=== PATIENT | female | born 1930 | race Caucasian/White ===

== ENCOUNTER → 2016-12-07 | Outpatient (CLI) | payer MEDICARE, BC ==
--- NOTE | 2016-12-07 11:13 | CT ---
EXAMINATION TYPE: CT brain wo con DATE OF EXAM: 12/07/2016 9:48 AM HISTORY: Headache CT DLP: 1254 mGycm. Automated Exposure Control for Dose Reduction was Utilized. TECHNIQUE: CT scan of the head is performed without contrast. COMPARISON: CT scan of brain July 19, 2016.. FINDINGS: There is no acute intracranial hemorrhage or midline shift identified. There is diffuse v entricular and sulcal prominence consistent with diffuse age-related cerebral atrophy. There is low- attenuation in the periventricular white matter consistent with chronic small vessel ischemic change. 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 The globes are intact and the v isualized sinuses are clear. IMPRESSION: No acute intracranial hemorrhage or midline shift. There is mild to moderate diffuse ag e-related cerebral atrophy and chronic small vessel ischemic change redemonstrated as well as old rig ht occipital lobe infarct all again seen. No significant change from prior study is noted.
== END | disposition home or self-care (01) ==
LOC: RADCTMAIN 09:14
PROVIDERS: ATTEND Family Medicine
DX: I67.82 Cerebral ischemia (principal); G31.1 Senile degeneration of brain, not elsewhere classified
CPT/HCPCS: 70450

== ENCOUNTER 2017-01-27 01:25 | Emergency (ER) | payer MEDICARE, BC ==
[2017-01-27 01:38] VITALS: RESP 20
--- NOTE | 2017-01-27 02:47 | XR ---
EXAM: XR Abdomen Complete With XR Chest. CLINICAL HISTORY: Reason: Pain TECHNIQUE: Frontal view of the chest, frontal view of the abdomen/pelvis and upright view of the abdomen. COMPARISON: No relevant prior studies available. FINDINGS: Lungs: Mild prominence of the interstitium which may represent interstitial edema. Pleural space: Unremarkable. No pneumothorax. Heart: Unremarkable. No cardiomegaly. Mediastinum: Unremarkable. Intraperitoneal space: No free air. Gastrointestinal tract: Unremarkable. No dilation. Organs: Surgical clips within right upper quadrant, likely prior cholecystectomy. Bones/joints: Multilevel degenerative changes of the thoracolumbar spine with kyphoplasty changes at L1. Remoted healed left rib fractures. Lymph nodes: Nodular opacity at the right hilum which may represent lymph nodes versus pulmonary nodules. Tubes, lines and devices: Moderate enlargement of the heart with single lead cardiac pacemaker. IMPRESSION: Mild prominence of the interstitium which may represent interstitial edema.
[2017-01-27] MEDS ORDERED: DOCUSATE 283 MG/5 ML ENEMA RECTAL STA (04:19)
--- NOTE | 2017-01-27 05:16 | ED ---
Abdominal Pain HPI - General Chief Complaint: Abdominal Pain Stated Complaint: constipation Time Seen by Provider: 01/27/17 01:37 Source: patient, EMS Mode of arrival: EMS Limitations: no limitations - History of Present Illness Initial Comments: This patient is an 86-year-old woman who presents with complaint that she has not had bowel movement for what's going on 6 days. She did try an over-the- counter laxative without success. The patient is not currently having abdominal pain. No fever or chills. No vomiting. She is tolerating oral intake. MD Complaint: other (Constipation) -: days(s) Quality: cramping Consistency: intermittent Improves With: nothing Worsens With: nothing Associated Symptoms: constipation - Related Data Home Medications Medication Instructions Recorded Confirmed Atenolol 100 mg PO DAILY 03/03/14 01/27/17 Imipramine [Tofranil] 10 mg PO TID 03/03/14 01/27/17 Oxybutynin Chloride [Oxybutynin 10 mg PO DAILY 05/29/15 01/27/17 Chloride ER] Vitamin B Complex 1 cap PO HS 05/29/15 01/27/17 Diltiazem HCl [Cartia Xt] 240 mg PO DAILY 09/19/15 01/27/17 Warfarin [Coumadin] 5 mg PO SUTUTHSA 09/19/15 01/27/17 Warfarin [Coumadin] 7.5 mg PO MOWEFR 09/19/15 01/27/17 Glimepiride [Amaryl] 1 mg PO AC-BID 10/18/15 01/27/17 Omeprazole [PriLOSEC] 20 mg PO DAILY 07/22/16 01/27/17 Sulfamethox-Tmp 800-160Mg [Bactrim 1 tab PO Q12H 07/22/16 01/27/17 Ds] metFORMIN HCL [metFORMIN HCL] 500 mg PO DAILY 07/22/16 01/27/17 Previous Rx's Medication Instructions Recorded Losartan [Cozaar] 25 mg PO DAILY tab 12/14/14 Docusate [Colace] 100 mg PO DAILY #30 capsule 09/02/15 Sennosides [Senna] 8.6 mg PO DAILY PRN #30 tablet 04/21/16 Peg 3350-Na Sulf,Bicarb,Cl/KCl 4,000 ml PO DIRECTED #1 bottle 01/27/17 [Golytely Lavage] Allergies Allergy/AdvReac Type Severity Reaction Status Date / Time Penicillins Allergy Unknown Unknown Verified 07/22/16 10:01 Childhood adhesive AdvReac Unknown Unknown Verified 07/22/16 10:01 zolpidem tartrate AdvReac Confusion Verified 07/22/16 10:01 [From Jennifer] Review of Systems ROS Statement: Those systems with pertinent positive or pertinent negative responses have been documented in the HPI. ROS Other: All systems not noted in ROS Statement are negative. Constitutional: Denies: fever, chills Respiratory: Denies: cough, dyspnea Cardiovascular: Denies: chest pain, palpitations Gastrointestinal: Reports: abdominal pain (intermittent), constipation. Denies : nausea, vomiting, diarrhea, melena, hematochezia Genitourinary: Denies: dysuria, hematuria Musculoskeletal: Denies: back pain Skin: Denies: rash Neurological: Denies: headache Past Medical History Past Medical History: Atrial Fibrillation, Coronary Artery Disease (CAD), Cancer , Chest Pain / Angina, CVA/TIA, Diabetes Mellitus, GERD/Reflux, Hypertension, Myocardial Infarction (OR), Osteoarthritis (OA), Pneumonia Additional Past Medical History / Comment(s): 09/19/15 Pt presented to [facility] ER because she thinks she might have taken 3 days worth of her medication. She is being admitted with clinical impression of accidental drug ingestion. Other HX : chronic back pain, pt stated has had 3 mi's not sure of dates, murmur, glaucoma R eye, rt eye macular degeneration, R eye poor vision, colitis when younger, chronic thrombocytopenia, chronic myelomonocytic leukemia, iron deficient anemia, DIVERTICULITIS. 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 Last Myocardial Infarction Date:: unk History of Any Multi-Drug Resistant Organisms: None Reported Past Surgical History: Appendectomy, Back Surgery, Cholecystectomy, Heart Catheterization With Stent, Pacemaker Additional Past Surgical History / Comment(s): clark. cataract removal, bilateral knee replacement, heart stents- last in 2002, pacemaker [id number], back surgery for spinal stenosis, hemorroidectomy, colonoscopy-2011 normal. Past Anesthesia/Blood Transfusion Reactions: No Reported Reaction Additional Past Anesthesia/Blood Transfusion Reaction / Comment(s): Pt states she has received blood in past without reaction. Date of Last Stent Placement:: 2002 Type of Cardiac Device: Permanent Pacemaker Device Placement Date:: 2011 Past Psychological History: No Psychological Hx Reported Additional Psychological History / Comment(s): PT STATED HER NEPHEW OSMANY LIVES WITH HER. 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 She does not drive-her nephew takes her places. Smoking Status: Never smoker Past Alcohol Use History: None Reported Past Drug Use History: None Reported - Past Family History Father Family Medical History: Cancer Additional Family Medical History / Comment(s): at age 80- cardiac Mother Family Medical History: Cancer, Coronary Artery Disease (CAD), Myocardial Infarction (OR) Additional Family Medical History / Comment(s): age 59 [place] [facility] General Exam Limitations: no limitations General appearance: alert, in no apparent distress Head exam: Present: atraumatic, normocephalic ENT exam: Present: normal oropharynx Neck exam: Present: normal inspection Respiratory exam: Present: normal lung sounds bilaterally. Absent: respiratory distress, wheezes, rales, rhonchi, stridor Cardiovascular Exam: Present: regular rate, normal rhythm, normal heart sounds. Absent: systolic murmur, diastolic murmur, rubs, gallop GI/Abdominal exam: Present: soft. Absent: distended, tenderness, guarding, rebound, rigid, mass, pulsatile mass, hernia Extremities exam: Present: normal inspection, normal capillary refill. Absent: pedal edema, calf tenderness Back exam: Present: normal inspection. Absent: CVA tenderness (R), CVA tenderness (L) Neurological exam: Present: alert, normal gait Skin exam: Present: warm, dry, intact, normal color. Absent: rash Course Vital Signs 01/27/17 01/27/17 01:34 05:35 Temperature 97.4 F L 97.7 F Pulse Rate 69 81 Respiratory 20 20 Rate Blood Pressure 192/86 178/87 O2 Sat by Pulse 98 95 Oximetry Disposition Clinical Impression: Constipation Disposition: HOME SELF-CARE Condition: Good Instructions: Constipation (ED) Prescriptions: Peg 3350-Na Sulf,Bicarb,Cl/KCl [Golytely Lavage] 4,000 ml PO DIRECTED #1 bottle Referrals: Paco Martinez III, MD [Primary Care Provider] - 1-2 days
[2017-01-27 05:36] VITALS: BP 178/87; PULSE 81; TEMP 97.7
== END 2017-01-27 05:36 | disposition home or self-care (01) ==
LOC: EC 01:25
DX: K59.00 Constipation, unspecified (principal); I48.91 Unspecified atrial fibrillation; E11.9 Type 2 diabetes mellitus without complications; K21.9 Gastro-esophageal reflux disease without esophagitis; I10 Essential (primary) hypertension; Z79.84 Long term (current) use of oral hypoglycemic drugs; Z88.0 Allergy status to penicillin; Z91.048 Other nonmedicinal substance allergy status; Z88.8 Allergy status to other drugs, medicaments and biological substances; Z79.01 Long term (current) use of anticoagulants; Z90.49 Acquired absence of other specified parts of digestive tract; Z79.899 Other long term (current) drug therapy
CPT/HCPCS: 74022; 99284

== ENCOUNTER 2017-11-16 09:24 | Emergency (ER) | payer MEDICARE, BC ==
--- NOTE | 2017-11-16 10:57 | ED ---
General Adult HPI - General Chief complaint: Back Pain/Injury Stated complaint: Back pain Time Seen by Provider: 11/16/17 10:09 Source: patient, family, RN notes reviewed Mode of arrival: wheelchair Limitations: no limitations - History of Present Illness Initial comments: Chief complaint history of present illness is a 7-year-old female here with family. Patient's had low back pain with past 2 days Tylenol was helping. She also complains of chronic back pain. History of osteoporosis and previous low back surgery. Denies any injuries. - Related Data Home Medications Medication Instructions Recorded Confirmed Atenolol 100 mg PO BID 03/03/14 11/16/17 Oxybutynin Chloride [Oxybutynin 10 mg PO DAILY 05/29/15 11/16/17 Chloride ER] Diltiazem HCl [Cartia Xt] 240 mg PO DAILY 09/19/15 11/16/17 Warfarin [Coumadin] 5 mg PO MOWEFR 09/19/15 11/16/17 Warfarin [Coumadin] 7.5 mg PO SUTUTHSA 09/19/15 11/16/17 Glimepiride [Amaryl] 1 mg PO AC-BID 10/18/15 11/16/17 metFORMIN HCL [metFORMIN HCL] 500 mg PO DAILY 07/22/16 11/16/17 Losartan [Cozaar] 50 mg PO DAILY 11/16/17 11/16/17 Previous Rx's Medication Instructions Recorded Docusate [Colace] 100 mg PO DAILY #30 capsule 09/02/15 Hydrocodone/Acetaminophen [Ashfield 1 each PO Q6HR PRN #10 tab 11/16/17 5-325] Allergies Allergy/AdvReac Type Severity Reaction Status Date / Time Penicillins Allergy Unknown Unknown Verified 11/16/17 09:59 Childhood zolpidem tartrate AdvReac Confusion Verified 11/16/17 09:59 [From Jennifer] Review of Systems ROS Statement: Those systems with pertinent positive or pertinent negative responses have been documented in the HPI. Review of systems no headache no visual acuity changes no chest pain shows breath GI/ complaints of problems occasional constipation but not today. No rashes she has had shingles in the past. All systems were reviewed. Past medical problems significant for A. fib on Coumadin. She had a TIA but since resolved. She's also history of GERD, hypertension, previous MD 2, osteoarthritis, osteoporosis. Pneumonia. The patient's surgeries include appendectomy, back surgery, cholecystectomy, 2 or 3 stents, pacemaker and bilateral cataract surgery. Family history mother had uterine cancer. Patient has ALLERGIES to penicillin and zolpidem tartrate. Patient denies smoking denies drinking. ROS Other: All systems not noted in ROS Statement are negative. Past Medical History Past Medical History: Atrial Fibrillation, Coronary Artery Disease (CAD), Cancer , Chest Pain / Angina, CVA/TIA, Diabetes Mellitus, GERD/Reflux, Hypertension, Myocardial Infarction (MD), Osteoarthritis (OA), Pneumonia Additional Past Medical History / Comment(s): 09/19/15 Pt presented to [facility] ER because she thinks she might have taken 3 days worth of her medication. She is being admitted with clinical impression of accidental drug ingestion. Other HX : chronic back pain, pt stated has had 3 mi's not sure of dates, murmur, glaucoma R eye, rt eye macular degeneration, R eye poor vision, colitis when younger, chronic thrombocytopenia, chronic myelomonocytic leukemia, iron deficient anemia, DIVERTICULITIS. 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 Last Myocardial Infarction Date:: unk History of Any Multi-Drug Resistant Organisms: None Reported Past Surgical History: Appendectomy, Back Surgery, Cholecystectomy, Heart Catheterization With Stent, Pacemaker Additional Past Surgical History / Comment(s): clark. cataract removal, bilateral knee replacement, heart stents- last in 2002, pacemaker [id number], back surgery for spinal stenosis, hemorroidectomy, colonoscopy-2011 normal. Past Anesthesia/Blood Transfusion Reactions: No Reported Reaction Additional Past Anesthesia/Blood Transfusion Reaction / Comment(s): Pt states she has received blood in past without reaction. Date of Last Stent Placement:: 2002 Type of Cardiac Device: Permanent Pacemaker Device Placement Date:: 2011 Past Psychological History: No Psychological Hx Reported Smoking Status: Never smoker Past Alcohol Use History: None Reported Past Drug Use History: None Reported - Past Family History Father Family Medical History: Cancer Additional Family Medical History / Comment(s): at age 80- cardiac Mother Family Medical History: Cancer, Coronary Artery Disease (CAD), Myocardial Infarction (MD) Additional Family Medical History / Comment(s): age 59 [place] [facility] General Exam - General Exam Comments Initial Comments: General: The patient is awake and alert, in no distress, and does not appear acutely ill. Here because of acute on chronic low back pain. Tylenol helped for the first day but less so yesterday. Denies any direct injury or trauma. Eye: Pupils are equal, round and reactive to light, extra-ocular movements are intact ; there is normal conjunctiva bilaterally. No signs of icterus. History of cataract surgery Ears, nose, mouth and throat: Tongue mildly dry. Neck: The neck is supple, there is no tenderness, no anterior cervical lymphadenopathy , thyroid not enlarged. Cardiovascular: There is a regular rate and rhythm. No murmur, rub or gallop is appreciated. History of A. fib on Coumadin. Respiratory: Lungs are clear to auscultation, respirations are non-labored, breath sounds are equal. No wheezes, stridor, rales, or rhonchi. Gastrointestinal: Soft, non-distended, non-tender abdomen without masses or organomegaly noted. There is no rebound or guarding present. No CVA tenderness. Bowel sounds are unremarkable. Back: Evidence of previous surgery. No evidence of any rash though early shingles was discussed. Twisting turning is increased discomfort through the lower spine and slightly into the right buttock area. She has had a past history of sciatica. Musculoskeletal: Normal ROM, no tenderness, There is no pedal edema. There is no calf tenderness or swelling. Sensation intact. Pulses equal bilaterally 2+. Patient advised not to wear tight fitting rolldown stocking its. Removed in the ER by family. Neurological: CN II-XII intact, There are no obvious motor or sensory deficits. Coordination appears grossly intact. Speech is normal. No focal or lateralizing findings Skin: Skin is warm and dry and no rashes or lesions are noted. Early shingles discussed. Psychiatric: Cooperative, appropriate mood & affect, no complaint of any anxiety or depression. Limitations: no limitations Course Vital Signs 11/16/17 09:39 Temperature 97.5 F L Pulse Rate 55 L Respiratory 16 Rate Blood Pressure 130/66 O2 Sat by Pulse 100 Oximetry Medical Decision Making - Medical Decision Making Vital decision making; the patient is here because of acute on chronic low back pain. X-rays of the lumbosacral spine were done and reviewed by radiologist. His final report is no acute osseous lesion. Severe degenerative change. Marked scoliosis. Postsurgical changes. As read by Dr. Solorio Patient states that her Tylenol is not quite strong enough this time. She can' t take nonsteroidals ago she is on Coumadin. She'll be placed on low-dose Ashfield. Advised to cut 53 25 seconds half until she sees how she tolerates them. Advised follow-up with her family physician. Disposition Clinical Impression: Acute exacerbation of chronic low back pain Disposition: HOME SELF-CARE Condition: Stable Instructions: Chronic Back Pain (ED), Acute Low Back Pain (ED) Additional Instructions: Take one half Ashfield until you see how he would just to them. Follow-up with family physician return emergency room as needed Prescriptions: Hydrocodone/Acetaminophen [Ashfield 5-325] 1 each PO Q6HR PRN #10 tab PRN Reason: Pain Referrals: Paco Martinez III, MD [Primary Care Provider] - 1-2 days Time of Disposition: 11:44
--- NOTE | 2017-11-16 11:04 | XR ---
EXAMINATION TYPE: XR lumbosacral spine min 4V , 5 VIEWS DATE OF EXAM ORDERED: 11/16/2017 HISTORY: Chronic low back pain, increased. COMPARISON: None. FINDINGS: There there has been previous kyphoplasty at L1. There is mild wedging of T11 and T12. The re is a fairly marked levoscoliosis. This hypertrophic spondylosis in the lower dorsal spine. There i s diffuse degenerative disc disease in the lumbar spine. There is a retrograde listhesis of L2 on L3. There is mild, diffuse facet arthropathy. There is calcification of the aorta and splenic artery. There has been a previous cholecystectomy. IMPRESSION: 1. NO ACUTE OSSEOUS LESION. 2. SEVERE DEGENERATIVE CHANGE. 3. MARKED SCOLIOSIS. 4. POSTSURGICAL CHANGE.
[2017-11-16 12:01] VITALS: BP 168/75; PULSE 53; RESP 18; TEMP 98.4
== END 2017-11-16 12:01 | disposition home or self-care (01) ==
LOC: EC 09:24
DX: G89.29 Other chronic pain (principal); M54.5 Low back pain; M47.816 Spondylosis without myelopathy or radiculopathy, lumbar region; M41.86 Other forms of scoliosis, lumbar region; I48.91 Unspecified atrial fibrillation; I10 Essential (primary) hypertension; E11.42 Type 2 diabetes mellitus with diabetic polyneuropathy; I25.2 Old myocardial infarction; Z79.01 Long term (current) use of anticoagulants; Z79.84 Long term (current) use of oral hypoglycemic drugs; Z79.899 Other long term (current) drug therapy; Z88.0 Allergy status to penicillin; Z88.8 Allergy status to other drugs, medicaments and biological substances; Z86.79 Personal history of other diseases of the circulatory system; Z98.890 Other specified postprocedural states
CPT/HCPCS: 72110; 99283

== ENCOUNTER → 2017-11-21 | Outpatient (CLI) | payer MEDICARE, BC ==
[~2017-11-21] MED LIST: PHYTONADIONE ORAL 5 MG/5 ML ORAL.SYRG PO NR
[2017-11-21 16:44] VITALS: BP 130/70; RESP 18
== END | disposition home or self-care (01) ==
LOC: PROCWHC3 15:27
PROVIDERS: ATTEND Family Medicine
DX: R79.1 Abnormal coagulation profile (principal); Z79.84 Long term (current) use of oral hypoglycemic drugs
CPT/HCPCS: 99211

== ENCOUNTER → 2017-12-04 | Outpatient (CLI) | payer MEDICARE, BC ==
--- NOTE | 2017-12-04 15:31 | CT ---
EXAMINATION TYPE: CT lumbar spine wo con DATE OF EXAM: 12/04/2017 COMPARISON: Plain film 11/08/2017 HISTORY: Lower back pain CT DLP: 918 mGycm Automated exposure control for dose reduction was used. An unenhanced CT of the lumbar spine was performed. Bone and soft tissue window settings are submitt ed as well as coronal and sagittal reconstructions. FINDINGS: There is a marked spinal curvature as noted on plain film, multilevel spondylosis is present. Lumbar vertebral bodies show preserved height with the exception of L3. There is a cephalad to caudal fractu re of the L3 vertebral body anterior aspect with minimal displacement stellate. Bone mineralization i s reduced. Incidental note made of vertebroplasty change at T12 with some extravasation of cement int o the disc space at T12-L1. Hypertrophic changes are extensive within the visualized spine. Anterolis thesis grade 1 L4-5. Probable cortical cyst associated with the left kidney. Dense atheromatous maravilla es are present within the aorta. Small right posterior pleural effusion is suspected. . L1-L2: Broad-based posterior disc bulge causes mild anterior mass effect on the thecal sac. No signif icant central stenosis or foraminal encroachment. L2-L3: Spinal stenosis is present, there is hypertrophic change of the ligamentum flavum, facet arthr opathy. Extensive hypertrophic changes present, calcification along the posterior aspect of the disc with posterior broad-based disc bulge, lateral extension endplate disc complex encroaches upon the fo ramina. L3-L4: Fracture of the anterior aspect of L3 is noted. No significant central stenosis. Some hypertro phic changes present of the facets. No significant foraminal encroachment. There is some mild loss of vertebral body height L3. L4-L5: Listhesis is noted which is mild, there is calcification along the disc space. Laminectomy has been performed. No significant spinal stenosis. Foraminal encroachment is present due to lateral ext ension of endplate disc complex bilaterally. L5-S1: No significant foraminal encroachment on the right or spinal stenosis. Lateral extension of en dplate disc complex towards the left may encroach upon the foramen. IMPRESSION: Fracture through the anterior aspect of the vertebral body at L3 as described. Marked hypertrophic ch anges are present, postprocedural changes. Spinal stenosis greatest at L2-3. Additional findings abov e. A Yellow message has been communicated to Paco Martinez III, MD via the [employer] system on 12/04/2017 3:28 PM, Message ID [id number].
== END | disposition home or self-care (01) ==
LOC: RADCTMAIN 13:49
PROVIDERS: ATTEND Family Medicine
DX: M48.061 Spinal stenosis, lumbar region without neurogenic claudication (principal); M51.26 Other intervertebral disc displacement, lumbar region; M46.86 Other specified inflammatory spondylopathies, lumbar region; S32.039A Unspecified fracture of third lumbar vertebra, initial encounter for closed fracture; Z88.0 Allergy status to penicillin; Z98.890 Other specified postprocedural states
CPT/HCPCS: 72131

== ENCOUNTER 2018-03-11 00:43 | Emergency (ER) | payer MEDICARE, BC ==
[2018-03-11 01:05] VITALS: TEMP 98.1
[2018-03-11] MEDS ORDERED: ACETAMINOPHEN TAB 325 MG TAB PO STA (01:39)
[2018-03-11 01:59] VITALS: BP 171/72; PULSE 56; RESP 16
--- NOTE | 2018-03-11 02:05 | XR ---
EXAMINATION TYPE: XR tibia fibula LT DATE OF EXAM: 03/11/2018 COMPARISON: NONE HISTORY: Leg pain TECHNIQUE: 2 views FINDINGS: There is a left knee prosthesis. There is vascular calcification. I see no fracture nor dis location. There are large plantar and Achilles calcaneal spurs. IMPRESSION: No acute abnormality of the left tibia and fibula.
--- NOTE | 2018-03-11 02:06 | ED ---
Lower Extremity Injury HPI - General Chief Complaint: Extremity Injury, Lower Stated Complaint: Fall Time Seen by Provider: 03/11/18 01:27 Source: patient Mode of arrival: wheelchair - History of Present Illness Initial Comments: 87-year-old female patient presents to the emergency department today for evaluation of left lower leg pain after a fall approximately 2 days ago. Patient states she is coming out of the bathroom fell striking her peace on the wall. Patient states she fell landing on her bottom. She denies hitting her head or losing consciousness. The patient states that she did develop a bruise to the left lower leg however over the course of the day today the leg has become swollen and more painful. Patient states that when she walks on it it causes her the most significant pain. She denies any numbness or tingling to the foot. She denies any other injuries. Patient denies any headache, neck pain , chest pain, shortness of breath, dizziness, weakness, abdominal pain, nausea, vomiting, or difficulties with bowel movements or urination. - Related Data Home Medications Medication Instructions Recorded Confirmed Atenolol 100 mg PO BID 03/03/14 11/21/17 Oxybutynin Chloride [Oxybutynin 10 mg PO DAILY 05/29/15 11/21/17 Chloride ER] Diltiazem HCl [Cartia Xt] 240 mg PO DAILY 09/19/15 11/21/17 Warfarin [Coumadin] 5 mg PO MOWEFR 09/19/15 11/21/17 Warfarin [Coumadin] 7.5 mg PO SUTUTHSA 09/19/15 11/21/17 Glimepiride [Amaryl] 1 mg PO AC-BID 10/18/15 11/21/17 metFORMIN HCL [metFORMIN HCL] 500 mg PO DAILY 07/22/16 11/21/17 Losartan [Cozaar] 50 mg PO DAILY 11/16/17 11/21/17 Previous Rx's Medication Instructions Recorded Docusate [Colace] 100 mg PO DAILY #30 capsule 09/02/15 Hydrocodone/Acetaminophen [Nancy 1 each PO Q6HR PRN #10 tab 11/16/17 5-325] Allergies Allergy/AdvReac Type Severity Reaction Status Date / Time Penicillins Allergy Unknown Unknown Verified 03/11/18 01:05 Childhood zolpidem tartrate AdvReac Confusion Verified 03/11/18 01:05 [From Ambien] Review of Systems ROS Statement: Those systems with pertinent positive or pertinent negative responses have been documented in the HPI. ROS Other: All systems not noted in ROS Statement are negative. Past Medical History Past Medical History: Atrial Fibrillation, Coronary Artery Disease (CAD), Cancer , Chest Pain / Angina, CVA/TIA, Diabetes Mellitus, GERD/Reflux, Hypertension, Myocardial Infarction ([place]), Osteoarthritis (OA), Pneumonia Additional Past Medical History / Comment(s): 09/19/15 Pt presented to [facility] ER because she thinks she might have taken 3 days worth of her medication. She is being admitted with clinical impression of accidental drug ingestion. Other HX : chronic back pain, pt stated has had 3 mi's not sure of dates, murmur, glaucoma R eye, rt eye macular degeneration, R eye poor vision, colitis when younger, chronic thrombocytopenia, chronic myelomonocytic leukemia, iron deficient anemia, DIVERTICULITIS. 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 Last Myocardial Infarction Date:: unk History of Any Multi-Drug Resistant Organisms: None Reported Past Surgical History: Appendectomy, Back Surgery, Cholecystectomy, Heart Catheterization With Stent, Pacemaker Additional Past Surgical History / Comment(s): clark. cataract removal, bilateral knee replacement, heart stents- last in 2002, pacemaker [id number], back surgery for spinal stenosis, hemorroidectomy, colonoscopy-2011 normal. Past Anesthesia/Blood Transfusion Reactions: No Reported Reaction Additional Past Anesthesia/Blood Transfusion Reaction / Comment(s): Pt states she has received blood in past without reaction. Date of Last Stent Placement:: 2002 Type of Cardiac Device: Permanent Pacemaker Device Placement Date:: 2011 Past Psychological History: No Psychological Hx Reported Smoking Status: Never smoker - Past Family History Father Family Medical History: Cancer Additional Family Medical History / Comment(s): at age 80- cardiac Mother Family Medical History: Cancer, Coronary Artery Disease (CAD), Myocardial Infarction ([place]) Additional Family Medical History / Comment(s): age 59 in [facility] General Exam General appearance: alert, in no apparent distress, other (This is a well- developed, well-nourished elderly female patient in no acute distress. Vital signs upon presentation are temperature 98.1F, pulse 80, respirations 18, blood pressure 172/80, pulse ox 98% on room air.) Head exam: Present: atraumatic, normocephalic, normal inspection Eye exam: Present: normal appearance, PERRL, EOMI. Absent: scleral icterus, conjunctival injection, periorbital swelling ENT exam: Present: normal exam, normal oropharynx, mucous membranes moist Neck exam: Present: normal inspection, full ROM, other (Nontender, no step-off, no deformity to firm midline palpation of the posterior cervical spine. Full range of motion without pain or limitation.). Absent: tenderness, meningismus, lymphadenopathy Respiratory exam: Present: normal lung sounds bilaterally. Absent: respiratory distress, wheezes, rales, rhonchi, stridor Cardiovascular Exam: Present: regular rate, normal rhythm, normal heart sounds. Absent: systolic murmur, diastolic murmur, rubs, gallop, clicks GI/Abdominal exam: Present: soft, normal bowel sounds. Absent: distended, tenderness, guarding, rebound, rigid Extremities exam: Present: full ROM, tenderness (Tenderness over the left distal peace), normal capillary refill, other (Patient has swelling, tenderness, ecchymosis noted over the distal aspect of the left lower leg. Swelling surrounds the ankle and extends into the foot. Pedal and posttibial pulses are intact. Patient's skin is pink, warm, and dry.). Absent: normal inspection, pedal edema, joint swelling, calf tenderness Neurological exam: Present: alert, oriented X3, CN II-XII intact Psychiatric exam: Present: normal affect, normal mood Skin exam: Present: warm, dry, intact, normal color. Absent: rash Course Vital Signs 03/11/18 03/11/18 00:57 01:05 Temperature 98.1 F Pulse Rate 80 56 L Respiratory 18 16 Rate Blood Pressure 172/80 171/72 O2 Sat by Pulse 98 95 Oximetry Medical Decision Making - Medical Decision Making 87-year-old female patient presents to the emergency department today for evaluation of left lower leg pain and swelling after a fall. Physical examination does reveal a hematoma and generalized swelling to the left foot and ankle. X-ray of the tib-fib and ankle were negative for any acute fractures. Patient was placed in an Phil wrap for compression. She was instructed take Tylenol for pain control. She is instructed to remove the Phil wrap for a couple hours at least once a day. She is instructed regarding ice and elevation. She is instructed have repeat x-ray performed in 7-10 days if her symptoms are not improved. Return parameters discussed in detail. She verbalizes understanding and agrees this plan. - Radiology Data Radiology results: report reviewed, image reviewed Two-view x-ray of the left tib-fib are obtained. There is left knee prosthesis. There is vascular calcification. I see no fracture nor dislocation. There are large plantar and Achilles calcaneal spurs. Impression by Dr. Eubanks shows no acute abnormality of the left tibia and fibula. 3 views of the left ankle are obtained. Ankle mortise is anatomic. There is mild soft tissue swelling around the ankle. There are large plantar and Achilles calcaneal spurs. There is vascular calcification. Impression by Dr. Eubanks shows no acute abnormality of the left ankle. Disposition Clinical Impression: Hematoma of left lower extremity Disposition: HOME SELF-CARE Condition: Good Instructions: Hematoma (ED) Additional Instructions: Use Phil wrap for compression and support. Take Tylenol Motrin for pain and symptom control. Follow-up through primary care physician for recheck in one to days. Have x-ray repeated in 7-10 days if pain symptoms persist. Return here immediately for any new, worsening, or concerning symptoms. Is patient prescribed a controlled substance at d/c from ED?: No Referrals: Paco Martinez III, MD [Primary Care Provider] - 1-2 days Time of Disposition: 02:15
--- NOTE | 2018-03-11 02:06 | XR ---
EXAMINATION TYPE: XR ankle complete LT DATE OF EXAM: 03/11/2018 COMPARISON: NONE HISTORY: Ankle pain TECHNIQUE: 3 views FINDINGS: Ankle mortise is anatomic. There is mild soft tissue swelling around the ankle. There are l arge plantar and Achilles calcaneal spurs. There is vascular calcification. IMPRESSION: No acute abnormality of the left ankle
== END 2018-03-11 02:38 | disposition home or self-care (01) ==
LOC: EC 00:43
DX: S80.12XA Contusion of left lower leg, initial encounter (principal); I48.91 Unspecified atrial fibrillation; I25.10 Atherosclerotic heart disease of native coronary artery without angina pectoris; E11.9 Type 2 diabetes mellitus without complications; I10 Essential (primary) hypertension; I25.2 Old myocardial infarction; M19.90 Unspecified osteoarthritis, unspecified site; Z86.73 Personal history of transient ischemic attack (TIA), and cerebral infarction without residual deficits; Z85.6 Personal history of leukemia; Z79.84 Long term (current) use of oral hypoglycemic drugs; Z79.01 Long term (current) use of anticoagulants; Z79.899 Other long term (current) drug therapy; Z88.0 Allergy status to penicillin; Z88.8 Allergy status to other drugs, medicaments and biological substances; Z95.0 Presence of cardiac pacemaker; Z95.5 Presence of coronary angioplasty implant and graft; Z96.653 Presence of artificial knee joint, bilateral; W18.09XA Striking against other object with subsequent fall, initial encounter; Y92.002 Bathroom of unspecified non-institutional (private) residence as the place of occurrence of the external cause
CPT/HCPCS: 99283

== ENCOUNTER 2018-06-13 08:56 | Inpatient (IN) | payer MEDICARE, BC ==
--- NOTE | 2018-06-13 10:00 | ED ---
General Adult HPI - General Chief complaint: GI Bleed Stated complaint: rectal bleed; black stools Time Seen by Provider: 06/13/18 09:10 Source: patient, EMS, RN notes reviewed Mode of arrival: EMS Limitations: no limitations - History of Present Illness Initial comments: Patient is a pleasant 87-year-old female presenting to the emergency Department with complaints of concern for rectal bleeding. Patient has had dark stools progressive over the past couple of days. Patient has increased fatigue. Patient had some maroon stools today. Patient states it smells like blood. Patient is on Xarelto with history of atrial fibrillation. Patient has also a history of some form of unknown leukemia which she did not receive treatment for. No abdominal pain. No fever. - Related Data Home Medications Medication Instructions Recorded Confirmed Oxybutynin Chloride [Oxybutynin 10 mg PO DAILY 05/29/15 06/13/18 Chloride ER] Diltiazem HCl [Cartia Xt] 240 mg PO DAILY 09/19/15 06/13/18 Glimepiride [Amaryl] 1 mg PO AC-BID 10/18/15 06/13/18 metFORMIN HCL 500 mg PO DAILY 07/22/16 06/13/18 Losartan [Cozaar] 50 mg PO DAILY 11/16/17 06/13/18 Atenolol [Tenormin] 100 mg PO DAILY 06/13/18 06/13/18 Furosemide [Lasix] 40 mg PO DAILY PRN 06/13/18 06/13/18 Rivaroxaban [Xarelto] 15 mg PO DAILY 06/13/18 06/13/18 Previous Rx's Medication Instructions Recorded Docusate [Colace] 100 mg PO DAILY #30 capsule 09/02/15 Allergies Allergy/AdvReac Type Severity Reaction Status Date / Time Penicillins Allergy Unknown Unknown Verified 06/13/18 10:38 Childhood zolpidem tartrate AdvReac Confusion Verified 06/13/18 10:38 [From Jennifer] Review of Systems ROS Statement: Those systems with pertinent positive or pertinent negative responses have been documented in the HPI. ROS Other: All systems not noted in ROS Statement are negative. Constitutional: Denies: fever Eyes: Denies: eye pain ENT: Denies: ear pain Respiratory: Denies: cough Cardiovascular: Denies: chest pain Endocrine: Reports: fatigue Gastrointestinal: Reports: melena. Denies: abdominal pain, nausea, vomiting Genitourinary: Denies: dysuria Musculoskeletal: Denies: back pain Skin: Denies: rash Neurological: Denies: weakness Past Medical History Past Medical History: Atrial Fibrillation, Coronary Artery Disease (CAD), Cancer , Chest Pain / Angina, CVA/TIA, Diabetes Mellitus, GERD/Reflux, Hypertension, Myocardial Infarction ([place]), Osteoarthritis (OA), Pneumonia Additional Past Medical History / Comment(s): 09/19/15 Pt presented to [facility] ER because she thinks she might have taken 3 days worth of her medication. She is being admitted with clinical impression of accidental drug ingestion. Other HX : chronic back pain, pt stated has had 3 mi's not sure of dates, murmur, glaucoma R eye, rt eye macular degeneration, R eye poor vision, colitis when younger, chronic thrombocytopenia, chronic myelomonocytic leukemia, iron deficient anemia, DIVERTICULITIS. 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 Last Myocardial Infarction Date:: unk History of Any Multi-Drug Resistant Organisms: None Reported Past Surgical History: Appendectomy, Back Surgery, Cholecystectomy, Heart Catheterization With Stent, Pacemaker Additional Past Surgical History / Comment(s): clark. cataract removal, bilateral knee replacement, heart stents- last in 2002, pacemaker [id number], back surgery for spinal stenosis, hemorroidectomy, colonoscopy-2011 normal. Past Anesthesia/Blood Transfusion Reactions: No Reported Reaction Additional Past Anesthesia/Blood Transfusion Reaction / Comment(s): Pt states she has received blood in past without reaction. Date of Last Stent Placement:: 2002 Type of Cardiac Device: Permanent Pacemaker Device Placement Date:: 2011 Past Psychological History: No Psychological Hx Reported Smoking Status: Never smoker Past Alcohol Use History: None Reported Past Drug Use History: None Reported - Past Family History Father Family Medical History: Cancer Additional Family Medical History / Comment(s): at age 80- cardiac Mother Family Medical History: Cancer, Coronary Artery Disease (CAD), Myocardial Infarction ([place]) Additional Family Medical History / Comment(s): age 59 in [facility] General Exam Limitations: no limitations General appearance: alert, in no apparent distress Head exam: Present: atraumatic Eye exam: Present: normal appearance, PERRL ENT exam: Present: normal oropharynx Neck exam: Present: normal inspection Respiratory exam: Present: normal lung sounds bilaterally Cardiovascular Exam: Present: regular rate, irregular rhythm GI/Abdominal exam: Present: soft. Absent: distended, tenderness, guarding, rebound, rigid Rectal exam: Present: bloody stool Extremities exam: Present: normal inspection Neurological exam: Present: alert Psychiatric exam: Present: normal affect, normal mood Skin exam: Present: pallor Course Vital Signs 06/13/18 06/13/18 06/13/18 08:57 09:54 10:54 Temperature 97.8 F Pulse Rate 85 55 L 61 Respiratory 16 16 16 Rate Blood Pressure 144/87 133/61 153/67 O2 Sat by Pulse 98 97 96 Oximetry EKG Findings - EKG Comments: EKG Findings:: A. fib with rate of 62. QRS 90. QT 422. QTC 428. Normal axis. Pacer spikes are present. Inferior Q waves. No acute ST change. Medical Decision Making - Medical Decision Making Patient reevaluated and updated regarding results and plan. Case was discussed in detail with Dr. Jaeger, who will admit for Dr. Martinez. - Lab Data Result diagrams: 06/13/18 09:10 06/13/18 09:10 Lab Results 06/13/18 06/13/18 06/13/18 Range/Units 09:10 09:10 09:10 WBC 3.4 L (3.8-10.6) k/uL RBC 2.37 L (3.80-5.40) m/uL Hgb 6.8 L* (11.4-16.0) gm/dL Hct 22.6 L (34.0-46.0) % MCV 95.6 (80.0-100.0) fL MCH 28.7 (25.0-35.0) pg MCHC 30.0 L (31.0-37.0) g/dL RDW 17.6 H (11.5-15.5) % Plt Count 68 L (150-450) k/uL Neutrophils % Not Reportable Neutrophils % (Manual) 60 % Lymphocytes % Not Reportable Lymphocytes % (Manual) 11 % Monocytes % Not Reportable Monocytes % (Manual) 29 % Eosinophils % Not Reportable Basophils % Not Reportable Neutrophils # Not Reportable Neutrophils # (Manual) 2.04 (1.3-7.7) k/uL Lymphocytes # Not Reportable Lymphocytes # (Manual) 0.37 L (1.0-4.8) k/uL Monocytes # Not Reportable Monocytes # (Manual) 0.99 (0-1.0) k/uL Eosinophils # Not Reportable Basophils # Not Reportable Nucleated RBCs 0 (0-0) /100 WBC Polychromasia Present Hypochromasia Marked Anisocytosis Slight Macrocytosis Slight PT (9.0-12.0) sec INR (<1.2) APTT (22.0-30.0) sec Sodium 141 (137-145) mmol/L Potassium 5.0 (3.5-5.1) mmol/L Chloride 113 H (98-107) mmol/L Carbon Dioxide 19 L (22-30) mmol/L Anion Gap 9 mmol/L BUN 46 H (7-17) mg/dL Creatinine 1.02 (0.52-1.04) mg/dL Est GFR (CKD-EPI)AfAm 57 (>60 ml/min/1.73 sqM) Est GFR (CKD-EPI)NonAf 50 (>60 ml/min/1.73 sqM) Glucose 124 H (74-99) mg/dL POC Glucose (mg/dL) (75-99) mg/dL POC Glu Social Services Director ID Calcium 9.9 (8.4-10.2) mg/dL Total Bilirubin 0.7 (0.2-1.3) mg/dL AST 32 (14-36) U/L ALT 21 (9-52) U/L Alkaline Phosphatase 73 (38-126) U/L Total Creatine Kinase 30 (30-135) U/L CK-MB (CK-2) 0.8 (0.0-2.4) ng/mL CK-MB (CK-2) Rel Index 2.7 Troponin I <0.012 (0.000-0.034) ng/mL Total Protein 6.8 (6.3-8.2) g/dL Albumin 3.6 (3.5-5.0) g/dL Stool Occult Blood (Negative) 06/13/18 06/13/18 06/13/18 Range/Units 09:10 10:04 10:50 WBC (3.8-10.6) k/uL RBC (3.80-5.40) m/uL Hgb (11.4-16.0) gm/dL Hct (34.0-46.0) % MCV (80.0-100.0) fL MCH (25.0-35.0) pg MCHC (31.0-37.0) g/dL RDW (11.5-15.5) % Plt Count (150-450) k/uL Neutrophils % Neutrophils % (Manual) % Lymphocytes % Lymphocytes % (Manual) % Monocytes % Monocytes % (Manual) % Eosinophils % Basophils % Neutrophils # Neutrophils # (Manual) (1.3-7.7) k/uL Lymphocytes # Lymphocytes # (Manual) (1.0-4.8) k/uL Monocytes # Monocytes # (Manual) (0-1.0) k/uL Eosinophils # Basophils # Nucleated RBCs (0-0) /100 WBC Polychromasia Hypochromasia Anisocytosis Macrocytosis PT 13.1 H (9.0-12.0) sec INR 1.4 H (<1.2) APTT 24.6 (22.0-30.0) sec Sodium (137-145) mmol/L Potassium (3.5-5.1) mmol/L Chloride (98-107) mmol/L Carbon Dioxide (22-30) mmol/L Anion Gap mmol/L BUN (7-17) mg/dL Creatinine (0.52-1.04) mg/dL Est GFR (CKD-EPI)AfAm (>60 ml/min/1.73 sqM) Est GFR (CKD-EPI)NonAf (>60 ml/min/1.73 sqM) Glucose (74-99) mg/dL POC Glucose (mg/dL) 126 H (75-99) mg/dL POC Glu Social Services Director ID Lizzy Hernández Calcium (8.4-10.2) mg/dL Total Bilirubin (0.2-1.3) mg/dL AST (14-36) U/L ALT (9-52) U/L Alkaline Phosphatase (38-126) U/L Total Creatine Kinase (30-135) U/L CK-MB (CK-2) (0.0-2.4) ng/mL CK-MB (CK-2) Rel Index Troponin I (0.000-0.034) ng/mL Total Protein (6.3-8.2) g/dL Albumin (3.5-5.0) g/dL Stool Occult Blood Positive H (Negative) Critical Care Time Critical Care Time: Yes Total Critical Care Time: 32 Disposition Clinical Impression: Lower gastrointestinal hemorrhage Disposition: ADMITTED IP TO THIS HOSP Referrals: Paco Martinez III, MD [Primary Care Provider] - 1-2 days Decision Time: 11:31
[2018-06-13 10:10] LABS: Glucose,Whole Blood 126 mg/dL (75-99)
[2018-06-13 10:18] LABS: Anisocytosis Slight; HCT 22.6 % (34.0-46.0); Hypochromasia Marked; MCH 28.7 pg (25.0-35.0); MCV 95.6 fL (80.0-100.0); Macrocytosis Slight; Mean Platelet Volume 12.2; Platelet Count 68 k/uL (150-450); RBC 2.37 m/uL (3.80-5.40); RDW 17.6 % (11.5-15.5); WBC 3.4 k/uL (3.8-10.6)
[2018-06-13 10:21] LABS: HGB 6.8 gm/dL (11.4-16.0)
[2018-06-13 10:34] LABS: Creatine Kinase 30 U/L (30-135)
[2018-06-13 10:36] LABS: Albumin 3.6 g/dL (3.5-5.0); Calcium 9.9 mg/dL (8.4-10.2); Total Bilirubin 0.7 mg/dL (0.2-1.3); Total Protein 6.8 g/dL (6.3-8.2)
[2018-06-13 10:46] LABS: Lymphocytes # (M) 0.37 k/uL (1.0-4.8); Monocytes # (M) 0.99 k/uL (0-1.0); Neutrophils # (M) 2.04 k/uL (1.3-7.7); Neutrophils % (M) 60 %; Nucleated Red Blood Cells 0 /100 WBC (0-0); Total Cells Counted 100
[2018-06-13 10:47] LABS: Creatine Kinase MB 0.8 ng/mL (0.0-2.4); Polychromasia Present; Troponin I <0.012 ng/mL (0.000-0.034)
[2018-06-13 11:14] LABS: INR 1.4 (<1.2); Partial Thromboplastin Time 24.6 sec (22.0-30.0); Prothrombin Time 13.1 sec (9.0-12.0)
[2018-06-13] MEDS ORDERED: NALOXONE 0.4 MG/ML 1 ML VIAL IV PRN (11:32)
[2018-06-13 16:58] LABS: Glucose,Whole Blood 99 mg/dL (75-99)
[2018-06-13] MEDS: SODIUM CHLORIDE 0.9% 1,000 ML IV SCH ×2 (17:40→21:16)
[2018-06-13 19:15] LABS: Anisocytosis Slight; HCT 24.2 % (34.0-46.0); HGB 7.2 gm/dL (11.4-16.0); Hypochromasia Marked; MCH 28.9 pg (25.0-35.0); MCHC 29.8 g/dL (31.0-37.0); Macrocytosis Slight; Mean Platelet Volume 12.8; Poikilocytosis Slight; WBC 2.9 k/uL (3.8-10.6)
[2018-06-13 19:16] LABS: Platelet Count 61 k/uL (150-450)
[2018-06-13 19:26] LABS: Eosinophils # (M) 0.09 k/uL (0-0.7); Lymphocytes # (M) 0.35 k/uL (1.0-4.8); Monocytes # (M) 0.81 k/uL (0-1.0); Neutrophils # (M) 1.65 k/uL (1.3-7.7); Neutrophils % (M) 57 %; Nucleated Red Blood Cells 0 /100 WBC (0-0); Total Cells Counted 100
[2018-06-13 19:27] LABS: Large Platelets Present
--- NOTE | 2018-06-13 20:32 | P.HPIM ---
History of Present Illness H&P Date: 06/13/18 Chief Complaint: Dark-colored stool for 2 days Mrs. Bay is an 87 year old pleasant female with a past medical history of atrial fibrillation on anticoagulation since arrival, coronary artery disease, CVA/TIA, diabetes mellitus, GERD, hypertension, osteoarthritis coming into the hospital with a chief complaint of dark colored stool for the past 2 days. Patient states that she noticed dark colored stool and also bright red blood from her rectum and that she could smell blood from her commode. She also complains of increased fatigue. Patient states that she was taking Coumadin for anticoagulation secondary to her history of atrial fibrillation in the past. But recently has changed to Xarelto and this is her second bottle. Patient denies having any abdominal pain nausea vomiting or diarrhea. No complaints of fever chills cough. No chest pain or palpitations. Patient denies dysuria or hematuria. In the ED patient stool has been tested positive for FOBT and her hemoglobin was low at 6.3. And she has been admitted to the hospital for further workup. Review of Systems REVIEW OF SYSTEMS: PSYCH: No history of anxiety or depression NEURO:No c/o weakness of the extremties, No facial droop, No speech abnormalities. VASCULAR: Peripheral nervous system within the normal limits no edema HEMATOLOGIC: No history of easy bruising in the past RESPIRATORY: No cough, No SOB, No chest discomfort. IMMUNE: No infections INTEGUMENT: no rashes OPHTHALMOLOGIC: No blurry vision and no eye discharge : No dysuria or hematuria CARDIAC: No chest pain , shortness of breath , paroxysmal nocturnal dyspnea MUSCULOSKELETAL : No Aches or pains in the joints or muscles. GI: No abdominal pain, Nausea or vomiting. No constipation or diarrhea. Past Medical History Past Medical History: Atrial Fibrillation, Coronary Artery Disease (CAD), Cancer , Chest Pain / Angina, CVA/TIA, Diabetes Mellitus, GERD/Reflux, Hypertension, Myocardial Infarction ([place]), Osteoarthritis (OA), Pneumonia Additional Past Medical History / Comment(s): chronic back pain, pt stated has had 3 mi's not sure of dates, murmur, glaucoma R eye, rt eye macular degeneration, R eye poor vision, colitis when younger, chronic thrombocytopenia , chronic myelomonocytic leukemia, iron deficient anemia, DIVERTICULITIS. 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 Last Myocardial Infarction Date:: unk History of Any Multi-Drug Resistant Organisms: None Reported Past Surgical History: Appendectomy, Back Surgery, Cholecystectomy, Heart Catheterization With Stent, Pacemaker Additional Past Surgical History / Comment(s): clark. cataract removal, bilateral knee replacement, heart stents- last in 2002, pacemaker [id number], back surgery for spinal stenosis, hemorroidectomy, colonoscopy-2011 normal. Past Anesthesia/Blood Transfusion Reactions: No Reported Reaction Additional Past Anesthesia/Blood Transfusion Reaction / Comment(s): Pt states she has received blood in past without reaction. Date of Last Stent Placement:: 2002 Type of Cardiac Device: Permanent Pacemaker Device Placement Date:: 2011 Past Psychological History: No Psychological Hx Reported Additional Psychological History / Comment(s): PT STATED HER NEPHEW OSMANY LIVES WITH HER. 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 She does not drive-her nephew takes her places. Smoking Status: Never smoker Past Alcohol Use History: None Reported Past Drug Use History: None Reported - Past Family History Father Family Medical History: Cancer Additional Family Medical History / Comment(s): at age 80- cardiac Mother Family Medical History: Cancer, Coronary Artery Disease (CAD), Myocardial Infarction ([place]) Additional Family Medical History / Comment(s): age 59 in [facility] Medications and Allergies Home Medications Medication Instructions Recorded Confirmed Type Oxybutynin Chloride [Oxybutynin 10 mg PO DAILY 05/29/15 06/13/18 History Chloride ER] Docusate [Colace] 100 mg PO DAILY #30 capsule 09/02/15 06/13/18 Rx Diltiazem HCl [Cartia Xt] 240 mg PO DAILY 09/19/15 06/13/18 History Glimepiride [Amaryl] 1 mg PO AC-BID 10/18/15 06/13/18 History metFORMIN HCL 500 mg PO DAILY 07/22/16 06/13/18 History Losartan [Cozaar] 50 mg PO DAILY 11/16/17 06/13/18 History Atenolol [Tenormin] 100 mg PO DAILY 06/13/18 06/13/18 History Furosemide [Lasix] 40 mg PO DAILY PRN 06/13/18 06/13/18 History Rivaroxaban [Xarelto] 15 mg PO DAILY 06/13/18 06/13/18 History Allergies Allergy/AdvReac Type Severity Reaction Status Date / Time Penicillins Allergy Unknown Unknown Verified 06/13/18 10:38 Childhood zolpidem tartrate AdvReac Confusion Verified 06/13/18 10:38 [From [facility]] Physical Exam Vitals: Vital Signs Temp Pulse Pulse Resp BP BP Pulse Ox 06/13/18 17:22 98.2 F 73 18 146/73 96 06/13/18 16:00 98.2 F 73 18 146/73 95 06/13/18 14:41 97.0 F L 65 16 120/64 97 06/13/18 14:11 97.3 F L 63 18 129/65 98 06/13/18 14:01 97.2 F L 62 18 142/61 100 06/13/18 12:53 97.5 F L 80 16 130/64 06/13/18 12:21 98.3 F 77 20 155/88 94 L 06/13/18 11:56 59 L 16 142/61 96 06/13/18 10:54 61 16 153/67 96 06/13/18 09:54 55 L 16 133/61 97 06/13/18 08:57 97.8 F 85 16 144/87 98 Intake and Output 06/13/18 06/13/18 06/13/18 06:59 14:59 22:59 Intake Total 0 310 Balance 0 310 Intake: Blood Product 0 310 Rc As-3 Unit 0 310 [id number] Other: Weight 68.039 kg 68.039 kg GENERAL EXAM GEN. APPEARANCE: alert, in no apparent distress HEAD EXAM: Atraumatic normocephalic EYE EXAM: Mild pallor ENT EXAM: normal exam, mucous membranes moist NECK EXAM: No thyromegaly, no JVD RESPIRATORY EXAM: Bilateral breath sounds are positive. Scattered rhonchi CARDIOVASCULAR EXAM: Irregularly irregular GI/ABDOMINAL EXAM: soft, normal bowel sounds. Absent: distended, tenderness, guarding, rebound, rigid EXTREMITIES EXAM: No edema clubbing or cyanosis NEUROLOGICAL EXAM: alert, oriented X2 , no focal neurological deficits PSYCHIATRIC EXAM: normal affect, normal mood SKIN EXAM: Thin and fragile Results CBC & Chem 7: 06/13/18 18:58 06/13/18 09:10 Labs: Abnormal Lab Results - Last 24 Hours (Table) 06/13/18 06/13/18 06/13/18 Range/Units 09:10 09:10 09:10 WBC 3.4 L (3.8-10.6) k/uL RBC 2.37 L (3.80-5.40) m/uL Hgb 6.8 L* (11.4-16.0) gm/dL Hct 22.6 L (34.0-46.0) % MCHC 30.0 L (31.0-37.0) g/dL RDW 17.6 H (11.5-15.5) % Plt Count 68 L (150-450) k/uL Lymphocytes # (Manual) 0.37 L (1.0-4.8) k/uL PT (9.0-12.0) sec INR (<1.2) Chloride 113 H (98-107) mmol/L Carbon Dioxide 19 L (22-30) mmol/L BUN 46 H (7-17) mg/dL Glucose 124 H (74-99) mg/dL POC Glucose (mg/dL) (75-99) mg/dL Stool Occult Blood Positive H (Negative) Crossmatch 06/13/18 06/13/18 06/13/18 Range/Units 10:04 10:50 10:50 WBC (3.8-10.6) k/uL RBC (3.80-5.40) m/uL Hgb (11.4-16.0) gm/dL Hct (34.0-46.0) % MCHC (31.0-37.0) g/dL RDW (11.5-15.5) % Plt Count (150-450) k/uL Lymphocytes # (Manual) (1.0-4.8) k/uL PT 13.1 H (9.0-12.0) sec INR 1.4 H (<1.2) Chloride (98-107) mmol/L Carbon Dioxide (22-30) mmol/L BUN (7-17) mg/dL Glucose (74-99) mg/dL POC Glucose (mg/dL) 126 H (75-99) mg/dL Stool Occult Blood (Negative) Crossmatch See Detail 06/13/18 Range/Units 18:58 WBC 2.9 L (3.8-10.6) k/uL RBC 2.50 L (3.80-5.40) m/uL Hgb 7.2 L (11.4-16.0) gm/dL Hct 24.2 L (34.0-46.0) % MCHC 29.8 L (31.0-37.0) g/dL RDW 17.0 H (11.5-15.5) % Plt Count 61 L (150-450) k/uL Lymphocytes # (Manual) 0.35 L (1.0-4.8) k/uL PT (9.0-12.0) sec INR (<1.2) Chloride (98-107) mmol/L Carbon Dioxide (22-30) mmol/L BUN (7-17) mg/dL Glucose (74-99) mg/dL POC Glucose (mg/dL) (75-99) mg/dL Stool Occult Blood (Negative) Crossmatch Thrombosis Risk Factor Assmnt - Choose All That Apply Each Risk Factor Represents 3 Points: Age 75 years or older Other congenital or acquired thrombophilia - If yes, enter type in comment: No Thrombosis Risk Factor Assessment Total Risk Factor Score: 3 Thrombosis Risk Factor Assessment Level: Moderate Risk Assessment and Plan Assessment: ASSESSMENT Acute blood loss anemia Lower GI bleed History of atrial fibrillation Coronary artery disease status post stenting History of CVA/TIA Type 2 diabetes mellitus CK D stage III GERD Hypertension Degenerative joint disease Chronic low back pain History of chronic myelomonocytic leukemia Peripheral neuropathy Plan: Patient is out of has been held. She was given 1 unit of PRBCs hemoglobin has come up to 7.2. GI has been consulted. We will resume rest of her home medications. Fairly monitor H&H every 12 hours and transfuse if hemoglobin less than 7. Further recommendations to follow depending on the progress of the patient.
[2018-06-13 20:54] LABS: Glucose,Whole Blood 123 mg/dL (75-99)
[2018-06-13] MEDS: INSULIN ASPART 100 UNIT/ML 1 ML 10 ML VIAL SQ SCH (21:15)
[2018-06-13] MEDS ORDERED: LORazepam 2 MG/ML INJ IV STA (21:34)
[2018-06-14 06:18] LABS: Glucose,Whole Blood 189 mg/dL (75-99)
[2018-06-14] MEDS: SODIUM CHLORIDE 0.9% 1,000 ML IV SCH ×2 (06:51→18:48)
[2018-06-14] MEDS: INSULIN ASPART 100 UNIT/ML 1 ML 10 ML VIAL SQ SCH ×3 (06:54→18:48)
[2018-06-14 07:00] LABS: Calcium 9.1 mg/dL (8.4-10.2); Potassium 4.3 mmol/L (3.5-5.1)
[2018-06-14 07:14] LABS: Anisocytosis Slight; Basophils % (A) 0 %; Eosinophils % (A) 0 %; HCT 23.9 % (34.0-46.0); HGB 7.3 gm/dL (11.4-16.0); Hypochromasia Marked; Lymphocytes # (A) 0.4 k/uL (1.0-4.8); Lymphocytes % (A) 3 %; MCH 29.3 pg (25.0-35.0); MCHC 30.6 g/dL (31.0-37.0); MCV 95.9 fL (80.0-100.0); Macrocytosis Slight; Mean Platelet Volume 12.4; Monocytes # (A) 1.9 k/uL (0-1.0); Monocytes % (A) 15 %; Neutrophils % (A) 78 %; Poikilocytosis Slight; RBC 2.49 m/uL (3.80-5.40); RDW 17.4 % (11.5-15.5); WBC 12.8 k/uL (3.8-10.6)
[2018-06-14 07:17] LABS: Platelet Count 66 k/uL (150-450)
[2018-06-14] MEDS ORDERED: PANTOPRAZOLE 40 MG/10 ML VIAL IV SCH (09:00)
[2018-06-14] MEDS: ATENOLOL 50 MG TAB PO SCH (11:39)
[2018-06-14] MEDS: DILTIAZEM CD 240 MG CAP.ER.24H PO SCH (11:39)
[2018-06-14] MEDS: LOSARTAN 50 MG TAB PO SCH (11:40)
[2018-06-14] MEDS: OXYBUTYNIN 10 MG TAB.ER.24 PO SCH (11:40)
[2018-06-14 12:01] LABS: Glucose,Whole Blood 126 mg/dL (75-99)
[2018-06-14] MEDS: LORazepam 2 MG/ML INJ IV PRN (12:47)
[2018-06-14 14:04] LABS: Appearance,Urine Cloudy (Clear); Bacteria,Urine Many /hpf; Bilirubin,Urine Negative (Negative); Blood,Urine Trace (Negative); Budding Yeast,Urine Occasional /hpf; Color,Urine Yellow; Glucose,Urine (UA) Negative (Negative); Ketones,Urine Negative (Negative); Leukocyte Esterase,Urine Large (Negative); Nitrite,Urine Positive (Negative); Protein,Urine Trace (Negative); RBC,Urine 9 /hpf (0-5); Specific Gravity,Urine 1.014 (1.001-1.035); Squamous Epithelial Cell,Urine <1 /hpf (0-4); Urobilinogen,Urine <2.0 mg/dL (<2.0)
--- NOTE | 2018-06-14 15:07 | P.CONS ---
History of Present Illness - Reason for Consult Consult date: 06/14/18 melena, anemia Requesting physician: Yris Mckinnon - Chief Complaint melena - History of Present Illness The patient is [id number] female with a past medical history significant for atrial fibrillation on Xarelto, CAD, CVA/TIA, diabetes mellitus, GERD, hypertension and osteoarthritis who presents to the hospital with complaints of 2 days of dark stool. Of note at the time of evaluation the patient was delirious and unable to provide any information, history has therefore been taken from review of the electronic medical record and discussion with the nursing and medical teams. By report the patient had presented to the hospital with 2 days of dark-colored stool. The patient was concerned over the dark stool and its foul smell as well as increasing fatigue, she therefore presented for further evaluation. She is on current anticoagulation therapy for her atrial fibrillation was Xarelto. She denied any fevers, chills, change in appetite, pain in her abdomen or other acute symptoms. She did however no increasing fatigue and shortness of breath. On presentation she was found to have a hemoglobin of 6.8 which was subsequently transfused up to 7.2 and remained stable at 7.3 on repeat draw. She was found to have stool positive for occult blood. There were no reports of nausea vomiting or diarrhea. Review of Systems ROS unobtainable: due to mental status (attempt at taking review of systems was unsuccessful given the patient's current mentation) Past Medical History Past Medical History: Atrial Fibrillation, Coronary Artery Disease (CAD), Cancer , Chest Pain / Angina, CVA/TIA, Diabetes Mellitus, GERD/Reflux, Hypertension, Myocardial Infarction ([place]), Osteoarthritis (OA), Pneumonia Additional Past Medical History / Comment(s): chronic back pain, pt stated has had 3 mi's not sure of dates, murmur, glaucoma R eye, rt eye macular degeneration, R eye poor vision, colitis when younger, chronic thrombocytopenia , chronic myelomonocytic leukemia, iron deficient anemia, DIVERTICULITIS. 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 Last Myocardial Infarction Date:: unk History of Any Multi-Drug Resistant Organisms: None Reported Past Surgical History: Appendectomy, Back Surgery, Cholecystectomy, Heart Catheterization With Stent, Pacemaker Additional Past Surgical History / Comment(s): clark. cataract removal, bilateral knee replacement, heart stents- last in 2002, pacemaker [id number], back surgery for spinal stenosis, hemorroidectomy, colonoscopy-2011 normal. Past Anesthesia/Blood Transfusion Reactions: No Reported Reaction Additional Past Anesthesia/Blood Transfusion Reaction / Comm: Pt states she has received blood in past without reaction. Date of Last Stent Placement:: 2002 Type of Cardiac Device: Permanent Pacemaker Device Placement Date:: 2011 Past Psychological History: No Psychological Hx Reported Additional Psychological History / Comment(s): PT STATED HER NEPHEW OSMANY LIVES WITH HER. 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 She does not drive-her nephew takes her places. Smoking Status: Never smoker Past Alcohol Use History: None Reported Past Drug Use History: None Reported - Past Family History Father Family Medical History: Cancer Additional Family Medical History / Comment(s): at age 80- cardiac Mother Family Medical History: Cancer, Coronary Artery Disease (CAD), Myocardial Infarction ([place]) Additional Family Medical History / Comment(s): age 59 in [facility] Medications and Allergies Home Medications Medication Instructions Recorded Confirmed Type Oxybutynin Chloride [Oxybutynin 10 mg PO DAILY 05/29/15 06/13/18 History Chloride ER] Docusate [Colace] 100 mg PO DAILY #30 capsule 09/02/15 06/13/18 Rx Diltiazem HCl [Cartia Xt] 240 mg PO DAILY 09/19/15 06/13/18 History Glimepiride [Amaryl] 1 mg PO AC-BID 10/18/15 06/13/18 History metFORMIN HCL 500 mg PO DAILY 07/22/16 06/13/18 History Losartan [Cozaar] 50 mg PO DAILY 11/16/17 06/13/18 History Atenolol [Tenormin] 100 mg PO DAILY 06/13/18 06/13/18 History Furosemide [Lasix] 40 mg PO DAILY PRN 06/13/18 06/13/18 History Rivaroxaban [Xarelto] 15 mg PO DAILY 06/13/18 06/13/18 History Allergies Allergy/AdvReac Type Severity Reaction Status Date / Time Penicillins Allergy Unknown Unknown Verified 06/13/18 10:38 Childhood zolpidem tartrate AdvReac Confusion Verified 06/13/18 10:38 [From [facility]] Physical Exam Vitals: Vital Signs Temp Pulse Pulse Resp BP BP Pulse Ox 06/14/18 12:00 97.1 F L 88 16 118/58 97 06/14/18 08:00 97 F L 90 18 113/53 97 06/14/18 03:15 114 H 18 120/48 06/14/18 00:00 98.0 F 105 H 18 130/60 98 06/13/18 20:00 98.3 F 79 18 160/68 95 06/13/18 17:22 98.2 F 73 18 146/73 96 06/13/18 16:00 98.2 F 73 18 146/73 95 Intake and Output 06/13/18 06/14/18 06/14/18 22:59 06:59 14:59 Intake Total 310 360 Output Total 0 0 Balance 310 0 360 Intake: Oral 360 Blood Product 310 Rc As-3 Unit 310 [id number] Output: Urine 0 0 Other: # Voids 0 0 1 Weight 68.039 kg 61 kg On physical examination, patient appears agitated and distressed. HEAD: Normocephalic, atraumatic. EYES: No clerae icterus. No conjunctival injection. MOUTH: No lesions, tongue midline. NECK: Trachea midline, no gross abnormalities. CHEST: Clear to auscultation with no wheezing appreciated. HEART: Regular rate and irregular rhythm. ABDOMEN: Soft, obese. Bowel sounds are positive. No organomegaly. No guarding or rigidity. EXTREMITIES: No pedal edema or change in skin noted. SKIN: No rashes, no jaundice. NEUROLOGIC: Awake but not oriented, agitated. No focal deficits appreciated however exam limited due to patient's mentation. Results CBC & Chem 7: 06/14/18 06:28 06/14/18 06:28 Labs: Abnormal Lab Results - Last 24 Hours (Table) 06/13/18 06/13/18 06/13/18 Range/Units 10:50 18:58 20:52 WBC 2.9 L (3.8-10.6) k/uL RBC 2.50 L (3.80-5.40) m/uL Hgb 7.2 L (11.4-16.0) gm/dL Hct 24.2 L (34.0-46.0) % MCHC 29.8 L (31.0-37.0) g/dL RDW 17.0 H (11.5-15.5) % Plt Count 61 L (150-450) k/uL Neutrophils # (1.3-7.7) k/uL Lymphocytes # (1.0-4.8) k/uL Lymphocytes # (Manual) 0.35 L (1.0-4.8) k/uL Monocytes # (0-1.0) k/uL Chloride (98-107) mmol/L Carbon Dioxide (22-30) mmol/L BUN (7-17) mg/dL Glucose (74-99) mg/dL POC Glucose (mg/dL) 123 H (75-99) mg/dL Urine Appearance (Clear) Urine Protein (Negative) Urine Blood (Negative) Urine Nitrite (Negative) Ur Leukocyte Esterase (Negative) Urine RBC (0-5) /hpf Urine WBC (0-5) /hpf Urine WBC Clumps (None) /hpf Urine Bacteria (None) /hpf Urine Yeast (Budding) (None) /hpf Crossmatch See Detail 06/14/18 06/14/18 06/14/18 Range/Units 06:06 06:28 06:28 WBC 12.8 H (3.8-10.6) k/uL RBC 2.49 L (3.80-5.40) m/uL Hgb 7.3 L (11.4-16.0) gm/dL Hct 23.9 L (34.0-46.0) % MCHC 30.6 L (31.0-37.0) g/dL RDW 17.4 H (11.5-15.5) % Plt Count 66 L (150-450) k/uL Neutrophils # 10.0 H (1.3-7.7) k/uL Lymphocytes # 0.4 L (1.0-4.8) k/uL Lymphocytes # (Manual) (1.0-4.8) k/uL Monocytes # 1.9 H (0-1.0) k/uL Chloride 114 H (98-107) mmol/L Carbon Dioxide 16 L (22-30) mmol/L BUN 33 H (7-17) mg/dL Glucose 173 H (74-99) mg/dL POC Glucose (mg/dL) 189 H (75-99) mg/dL Urine Appearance (Clear) Urine Protein (Negative) Urine Blood (Negative) Urine Nitrite (Negative) Ur Leukocyte Esterase (Negative) Urine RBC (0-5) /hpf Urine WBC (0-5) /hpf Urine WBC Clumps (None) /hpf Urine Bacteria (None) /hpf Urine Yeast (Budding) (None) /hpf Crossmatch 06/14/18 06/14/18 Range/Units 11:59 13:50 WBC (3.8-10.6) k/uL RBC (3.80-5.40) m/uL Hgb (11.4-16.0) gm/dL Hct (34.0-46.0) % MCHC (31.0-37.0) g/dL RDW (11.5-15.5) % Plt Count (150-450) k/uL Neutrophils # (1.3-7.7) k/uL Lymphocytes # (1.0-4.8) k/uL Lymphocytes # (Manual) (1.0-4.8) k/uL Monocytes # (0-1.0) k/uL Chloride (98-107) mmol/L Carbon Dioxide (22-30) mmol/L BUN (7-17) mg/dL Glucose (74-99) mg/dL POC Glucose (mg/dL) 126 H (75-99) mg/dL Urine Appearance Cloudy H (Clear) Urine Protein Trace H (Negative) Urine Blood Trace H (Negative) Urine Nitrite Positive H (Negative) Ur Leukocyte Esterase Large H (Negative) Urine RBC 9 H (0-5) /hpf Urine WBC 124 H (0-5) /hpf Urine WBC Clumps Many H (None) /hpf Urine Bacteria Many H (None) /hpf Urine Yeast (Budding) Occasional H (None) /hpf Crossmatch Assessment and Plan (1) Anemia due to acute blood loss Narrative/Plan: Anemia of unclear origin patient presents with complaints of melanotic stool would suspect possible upper GI pathology such as peptic ulcer disease, severe gastritis or esophagitis, AVM, with consideration also for other GI pathology such as small bowel or lower GI. Patient was found to be positive for occult blood. Her hemoglobin has remained stable after transfusion and is currently 7.3. Current Visit: Yes Status: Acute Code(s): D62 - ACUTE POSTHEMORRHAGIC ANEMIA SNOMED Code(s): 669488674 (2) Hematochezia Narrative/Plan: Melena and stool positive for occult blood on presentation, secondary to above. Current Visit: No Status: Acute Code(s): K92.1 - MELENA SNOMED Code(s): 613918015 Plan: Nothing by mouth while mentation remains poor Instrument clear liquids as tolerated Can plan on endoscopic evaluation when medically stable Continue Protonix therapy Monitor hemoglobin and hematocrit and transfuse as needed Continue to hold anticoagulation until hemodynamically stable and source of bleed has been found We'll continue to follow Active for allowing us to participate in the care of this patient
[2018-06-14 17:07] LABS: Glucose,Whole Blood 104 mg/dL (75-99)
--- NOTE | 2018-06-14 19:15 | P.PN ---
Subjective Progress Note Date: 06/14/18 Principal diagnosis: GI bleed Mrs. Bay is an 87 year old pleasant female with a past medical history of atrial fibrillation on anticoagulation since arrival, coronary artery disease, CVA/TIA, diabetes mellitus, GERD, hypertension, osteoarthritis coming into the hospital with a chief complaint of dark colored stool for the past 2 days. Patient states that she noticed dark colored stool and also bright red blood from her rectum and that she could smell blood from her commode. She also complains of increased fatigue. Patient states that she was taking Coumadin for anticoagulation secondary to her history of atrial fibrillation in the past. But recently has changed to Xarelto and this is her second bottle. In the ED patient stool has been tested positive for FOBT and her hemoglobin was low at 6.3. And she has been admitted to the hospital for further workup. On 06/14/2018 - last night was called as the patient was confused and trying to get out of the bed. She was more confused and had to give her Ativan to calm her down. She has a sitter at the bedside. When the patient's urine was checked it is positive for nitrites and large leukocyte esterase , so urine cultures have been obtained and she has been started on ceftriaxone. This afternoon patient was lying in the bed, as she was agitated she received a dose of Ativan few minutes back. Patient was very confused and keeps pushing away all of us as she did not want anyone to touch her. Review of systems could not be obtained as the patient is confused. Objective - Vital Signs Vital signs: Vital Signs Temp 97.2 F L 06/14/18 16:00 Pulse 89 06/14/18 16:00 Resp 16 06/14/18 16:00 BP 123/60 06/14/18 16:00 Pulse Ox 96 06/14/18 16:00 Intake & Output 06/14/18 06/14/18 06/15/18 06:59 18:59 06:59 Intake Total 360 Output Total 0 Balance 0 360 Weight 61 kg Intake: Oral 360 Output: Urine 0 Other: Voiding Method Incontinent # Voids 0 1 - Exam HEAD EXAM: Atraumatic normocephalic RESPIRATORY EXAM: Bilateral breath sounds are positive. Scattered rhonchi CARDIOVASCULAR EXAM: Irregularly irregular GI/ABDOMINAL EXAM: soft, normal bowel sounds. Absent: distended, tenderness, guarding, rebound, rigid EXTREMITIES EXAM: No edema clubbing or cyanosis NEUROLOGICAL EXAM: Patient is very confused and agitated, tossing and turning in the bed SKIN EXAM: Thin and fragile - Labs CBC & Chem 7: 06/14/18 06:28 06/14/18 06:28 Labs: Abnormal Lab Results - Last 24 Hours (Table) 06/13/18 06/13/18 06/14/18 Range/Units 18:58 20:52 06:06 WBC 2.9 L (3.8-10.6) k/uL RBC 2.50 L (3.80-5.40) m/uL Hgb 7.2 L (11.4-16.0) gm/dL Hct 24.2 L (34.0-46.0) % MCHC 29.8 L (31.0-37.0) g/dL RDW 17.0 H (11.5-15.5) % Plt Count 61 L (150-450) k/uL Neutrophils # (1.3-7.7) k/uL Lymphocytes # (1.0-4.8) k/uL Lymphocytes # (Manual) 0.35 L (1.0-4.8) k/uL Monocytes # (0-1.0) k/uL Chloride (98-107) mmol/L Carbon Dioxide (22-30) mmol/L BUN (7-17) mg/dL Glucose (74-99) mg/dL POC Glucose (mg/dL) 123 H 189 H (75-99) mg/dL Urine Appearance (Clear) Urine Protein (Negative) Urine Blood (Negative) Urine Nitrite (Negative) Ur Leukocyte Esterase (Negative) Urine RBC (0-5) /hpf Urine WBC (0-5) /hpf Urine WBC Clumps (None) /hpf Urine Bacteria (None) /hpf Urine Yeast (Budding) (None) /hpf 06/14/18 06/14/18 06/14/18 Range/Units 06:28 06:28 11:59 WBC 12.8 H (3.8-10.6) k/uL RBC 2.49 L (3.80-5.40) m/uL Hgb 7.3 L (11.4-16.0) gm/dL Hct 23.9 L (34.0-46.0) % MCHC 30.6 L (31.0-37.0) g/dL RDW 17.4 H (11.5-15.5) % Plt Count 66 L (150-450) k/uL Neutrophils # 10.0 H (1.3-7.7) k/uL Lymphocytes # 0.4 L (1.0-4.8) k/uL Lymphocytes # (Manual) (1.0-4.8) k/uL Monocytes # 1.9 H (0-1.0) k/uL Chloride 114 H (98-107) mmol/L Carbon Dioxide 16 L (22-30) mmol/L BUN 33 H (7-17) mg/dL Glucose 173 H (74-99) mg/dL POC Glucose (mg/dL) 126 H (75-99) mg/dL Urine Appearance (Clear) Urine Protein (Negative) Urine Blood (Negative) Urine Nitrite (Negative) Ur Leukocyte Esterase (Negative) Urine RBC (0-5) /hpf Urine WBC (0-5) /hpf Urine WBC Clumps (None) /hpf Urine Bacteria (None) /hpf Urine Yeast (Budding) (None) /hpf 06/14/18 06/14/18 Range/Units 13:50 16:55 WBC (3.8-10.6) k/uL RBC (3.80-5.40) m/uL Hgb (11.4-16.0) gm/dL Hct (34.0-46.0) % MCHC (31.0-37.0) g/dL RDW (11.5-15.5) % Plt Count (150-450) k/uL Neutrophils # (1.3-7.7) k/uL Lymphocytes # (1.0-4.8) k/uL Lymphocytes # (Manual) (1.0-4.8) k/uL Monocytes # (0-1.0) k/uL Chloride (98-107) mmol/L Carbon Dioxide (22-30) mmol/L BUN (7-17) mg/dL Glucose (74-99) mg/dL POC Glucose (mg/dL) 104 H (75-99) mg/dL Urine Appearance Cloudy H (Clear) Urine Protein Trace H (Negative) Urine Blood Trace H (Negative) Urine Nitrite Positive H (Negative) Ur Leukocyte Esterase Large H (Negative) Urine RBC 9 H (0-5) /hpf Urine WBC 124 H (0-5) /hpf Urine WBC Clumps Many H (None) /hpf Urine Bacteria Many H (None) /hpf Urine Yeast (Budding) Occasional H (None) /hpf Microbiology - Last 24 Hours (Table) 06/14/18 13:50 Urine Culture - Preliminary Urine,Clean Catch Assessment and Plan Assessment: ASSESSMENT Acute blood loss anemia Lower GI bleed Acute encephalopathy -most likely secondary to UTI UTI History of atrial fibrillation Coronary artery disease status post stenting History of CVA/TIA Type 2 diabetes mellitus CK D stage III GERD Hypertension Degenerative joint disease Chronic low back pain History of chronic myelomonocytic leukemia Peripheral neuropathy Plan: Patient has been started on ceftriaxone after obtaining blood cultures. Xarelto on hold . She was given 1 unit of PRBCs hemoglobin has come up to 7.2. GI has been consulted. Monitor H&H every 12 hours and transfuse if hemoglobin less than 7. Further recommendations to follow depending on the progress of the patient. Overall prognosis is guarded.
[2018-06-14 21:17] LABS: Glucose,Whole Blood 109 mg/dL (75-99)
--- NOTE | 2018-06-14 23:43 | P.CONS ---
History of Present Illness - Reason for Consult Consult date: 06/14/18 Anemia due to GI bleed. 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 Bay is an 84-year-old female patient, well known to myself , with a long-standing history of low platelet counts. 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 She has required no treatment as her platelet counts overall have been adequate. She was followed closely with observation. Patient was found to have a cardiac thrombus sometime in October 2013, along with a fib. She was placed on Coumadin and baby aspirin. Her platelets were monitored and were consistently above 50,000, which is required for anticoagulation and antiplatelet therapy. Unfortunately she had rectal bleeding in May 2014. Patient had angiodysplasia on colonoscopy and that was cauterized. Patient was resumed on her Coumadin with no acute bleeding episodes. During routine follow-up in 11/03, patient's platelet counts were noted to be 45,000. I did request that the patient hold her Coumadin and follow up in 2 weeks to have platelets reevaluated. However the patient developed a stroke and was admitted in 12/04. Her symptoms did resolve fairly quickly. Platelet count during that admission were noted to be adequate at greater than 50,000. Therefore anticoagulation was resumed. Since as the patient has been followed closely in the office along with cardiology. It was noted on follow-up that her platelet count subsequently declined and has been mostly in the 30-40,000 range. Typically anticoagulation is felt to be increased risk for bleeding for plated counts below 50,000. This has been discussed with the patient multiple times, but she has steadfastly requested to remain on anticoagulation, even with the low platelets, with full understanding of the risks involved. The patient also has had intermittent falls, fortunately with no bleeding. These have also lead to discussions about stopping anticoagulation based on risk benefit. However she has continued to refuse to do so. She has stated that she is more afraid of another stroke. She was subsequently changed to Xarelto from Coumadin. She has not required any treatment for her CMML, which is typically an indolent process. Usually her hemoglobin and white blood cells have been in the normal range. The patient came into the hospital complaining of progressively increasing weakness, and shortness of breath on exertion. Hemoglobin was found to be in the 6 range. She had noted black stools, and bright red blood per rectum, over the past 2 days prior to admission. She was therefore admitted further management. Interestingly her platelet counts were greater than 50,000 at the time of admission. Review of Systems Constitutional: Reports fatigue Eyes: denies blurred vision, denies pain Ears: deny: decreased hearing Ears, nose, mouth and throat: Denies headache, Denies sore throat Cardiovascular: Reports as per HPI, Reports decreased exercise tolerance, Reports palpitations Respiratory: Denies cough Gastrointestinal: Reports hematochezia, Reports melena Genitourinary: Reports stress incontinence, Denies dysuria, Denies hematuria Menstruation: Reports postmenopausal Musculoskeletal: Reports gait dysfunction, Reports muscle weakness Integumentary: Denies pruritus, Denies rash Neurological: Reports as per HPI, Reports gait dysfunction Psychiatric: Denies anxiety, Denies depression Endocrine: Reports fatigue, Denies weight change Hematologic/Lymphatic: Reports as per HPI Allergic/Immunologic: Reports as per HPI Past Medical History Past Medical History: Atrial Fibrillation, Coronary Artery Disease (CAD), Cancer , Chest Pain / Angina, CVA/TIA, Diabetes Mellitus, GERD/Reflux, Hypertension, Myocardial Infarction (MT), Osteoarthritis (OA), Pneumonia Additional Past Medical History / Comment(s): chronic back pain, pt stated has had 3 mi's not sure of dates, murmur, glaucoma R eye, rt eye macular degeneration, R eye poor vision, colitis when younger, chronic thrombocytopenia , chronic myelomonocytic leukemia, iron deficient anemia, DIVERTICULITIS. 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 Last Myocardial Infarction Date:: unk History of Any Multi-Drug Resistant Organisms: None Reported Past Surgical History: Appendectomy, Back Surgery, Cholecystectomy, Heart Catheterization With Stent, Pacemaker Additional Past Surgical History / Comment(s): clark. cataract removal, bilateral knee replacement, heart stents- last in 2002, pacemaker [id number], back surgery for spinal stenosis, hemorroidectomy, colonoscopy-2012 normal. Past Anesthesia/Blood Transfusion Reactions: No Reported Reaction Additional Past Anesthesia/Blood Transfusion Reaction / Comm: Pt states she has received blood in past without reaction. Date of Last Stent Placement:: 2002 Type of Cardiac Device: Permanent Pacemaker Device Placement Date:: 2011 Past Psychological History: No Psychological Hx Reported Additional Psychological History / Comment(s): PT STATED HER NEPHEW OSMANY LIVES WITH HER. 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 She does not drive-her nephew takes her places. Smoking Status: Never smoker Past Alcohol Use History: None Reported Past Drug Use History: None Reported - Past Family History Father Family Medical History: Cancer Additional Family Medical History / Comment(s): at age 80- cardiac Mother Family Medical History: Cancer, Coronary Artery Disease (CAD), Myocardial Infarction (MT) Additional Family Medical History / Comment(s): age 59 in [place] Medications and Allergies Home Medications Medication Instructions Recorded Confirmed Type Oxybutynin Chloride [Oxybutynin 10 mg PO DAILY 05/29/15 06/13/18 History Chloride ER] Docusate [Colace] 100 mg PO DAILY #30 capsule 09/02/15 06/13/18 Rx Diltiazem HCl [Cartia Xt] 240 mg PO DAILY 09/19/15 06/13/18 History Glimepiride [Amaryl] 1 mg PO AC-BID 10/18/15 06/13/18 History metFORMIN HCL 500 mg PO DAILY 07/22/16 06/13/18 History Losartan [Cozaar] 50 mg PO DAILY 11/16/17 06/13/18 History Atenolol [Tenormin] 100 mg PO DAILY 06/13/18 06/13/18 History Furosemide [Lasix] 40 mg PO DAILY PRN 06/13/18 06/13/18 History Rivaroxaban [Xarelto] 15 mg PO DAILY 06/13/18 06/13/18 History Allergies Allergy/AdvReac Type Severity Reaction Status Date / Time Penicillins Allergy Unknown Unknown Verified 06/13/18 10:38 Childhood zolpidem tartrate AdvReac Confusion Verified 06/13/18 10:38 [From Jennifer] Physical Exam Vitals: Vital Signs Temp Pulse Pulse Resp BP BP Pulse Ox 06/14/18 12:00 97.1 F L 88 16 118/58 97 06/14/18 08:00 97 F L 90 18 113/53 97 06/14/18 03:15 114 H 18 120/48 06/14/18 00:00 98.0 F 105 H 18 130/60 98 06/13/18 20:00 98.3 F 79 18 160/68 95 06/13/18 17:22 98.2 F 73 18 146/73 96 06/13/18 16:00 98.2 F 73 18 146/73 95 06/13/18 14:41 97.0 F L 65 16 120/64 97 06/13/18 14:11 97.3 F L 63 18 129/65 98 06/13/18 14:01 97.2 F L 62 18 142/61 100 06/13/18 12:53 97.5 F L 80 16 130/64 Intake and Output 06/13/18 06/14/18 06/14/18 22:59 06:59 14:59 Intake Total 310 360 Output Total 0 0 Balance 310 0 360 Intake: Oral 360 Blood Product 310 Rc As-3 Unit 310 [id number] Output: Urine 0 0 Other: # Voids 0 0 Weight 68.039 kg 61 kg - Constitutional General appearance: no acute distress - EENT Eyes: EOMI, PERRLA ENT: hearing grossly normal, normal oropharynx - Neck Neck: no lymphadenopathy Thyroid: bilateral: normal size - Respiratory Respiratory: bilateral: CTA - Cardiovascular Rhythm: irregularly irregular Heart sounds: normal: S1, S2 - Gastrointestinal General gastrointestinal: normal bowel sounds, soft - Integumentary Integumentary: normal - Neurologic confused Neurologic: CNII-XII intact - Musculoskeletal Musculoskeletal: strength equal bilaterally - Psychiatric confused Results CBC & Chem 7: 06/14/18 06:28 06/14/18 06:28 Labs: Abnormal Lab Results - Last 24 Hours (Table) 06/13/18 06/13/18 06/13/18 Range/Units 10:50 18:58 20:52 WBC 2.9 L (3.8-10.6) k/uL RBC 2.50 L (3.80-5.40) m/uL Hgb 7.2 L (11.4-16.0) gm/dL Hct 24.2 L (34.0-46.0) % MCHC 29.8 L (31.0-37.0) g/dL RDW 17.0 H (11.5-15.5) % Plt Count 61 L (150-450) k/uL Neutrophils # (1.3-7.7) k/uL Lymphocytes # (1.0-4.8) k/uL Lymphocytes # (Manual) 0.35 L (1.0-4.8) k/uL Monocytes # (0-1.0) k/uL Chloride (98-107) mmol/L Carbon Dioxide (22-30) mmol/L BUN (7-17) mg/dL Glucose (74-99) mg/dL POC Glucose (mg/dL) 123 H (75-99) mg/dL Crossmatch See Detail 06/14/18 06/14/18 06/14/18 Range/Units 06:06 06:28 06:28 WBC 12.8 H (3.8-10.6) k/uL RBC 2.49 L (3.80-5.40) m/uL Hgb 7.3 L (11.4-16.0) gm/dL Hct 23.9 L (34.0-46.0) % MCHC 30.6 L (31.0-37.0) g/dL RDW 17.4 H (11.5-15.5) % Plt Count 66 L (150-450) k/uL Neutrophils # 10.0 H (1.3-7.7) k/uL Lymphocytes # 0.4 L (1.0-4.8) k/uL Lymphocytes # (Manual) (1.0-4.8) k/uL Monocytes # 1.9 H (0-1.0) k/uL Chloride 114 H (98-107) mmol/L Carbon Dioxide 16 L (22-30) mmol/L BUN 33 H (7-17) mg/dL Glucose 173 H (74-99) mg/dL POC Glucose (mg/dL) 189 H (75-99) mg/dL Crossmatch 06/14/18 Range/Units 11:59 WBC (3.8-10.6) k/uL RBC (3.80-5.40) m/uL Hgb (11.4-16.0) gm/dL Hct (34.0-46.0) % MCHC (31.0-37.0) g/dL RDW (11.5-15.5) % Plt Count (150-450) k/uL Neutrophils # (1.3-7.7) k/uL Lymphocytes # (1.0-4.8) k/uL Lymphocytes # (Manual) (1.0-4.8) k/uL Monocytes # (0-1.0) k/uL Chloride (98-107) mmol/L Carbon Dioxide (22-30) mmol/L BUN (7-17) mg/dL Glucose (74-99) mg/dL POC Glucose (mg/dL) 126 H (75-99) mg/dL Crossmatch Assessment and Plan (1) Anemia due to acute blood loss Narrative/Plan: The patient's anemia is new for her, and appears to be related to GI blood loss. Hemoglobin is currently stable in the 7 range which is adequate. GI has been consulted. The patient will need repeat GI workup. Check iron studies. Continue to monitor and supplement with transfusion as needed. Anticoagulation is on hold. Current Visit: Yes Status: Acute Code(s): D62 - ACUTE POSTHEMORRHAGIC ANEMIA SNOMED Code(s): 605340873 (2) Thrombocytopenia Narrative/Plan: The patient has chronically low platelets due to her CMML. Previously platelet Counts were adequate for anticoagulation greater than 50,000. However since 2015 they have mostly been in the 30-40,000 range with intermittent levels above 50,000. As noted in the HPI, the patient has steadfastly requested to stay on anticoagulation, with full understanding of the increased risk with her platelet count, as she is more afraid of getting a recurrent stroke. Fortunately she has not had any complications so far, despite having had a few falls. Interestingly, during this admission her platelet count is actually above 50, 000 which is generally considered safe for anticoagulation. However, due to acute significant GI bleed, anticoagulation will need to be placed on hold. Continue to monitor platelets. If the patient has evidence of active bleeding, she will need platelet transfusions if the number is below 40,000. Platelet counts of greater than 50,000 should also be adequate for any planned GI procedures Current Visit: No Status: Chronic Priority: High Code(s): D69.6 - THROMBOCYTOPENIA, UNSPECIFIED SNOMED Code(s): 188082416 (3) CMML (chronic myelomonocytic leukemia) Narrative/Plan: This has followed an indolent course, which is typical. She has not required any treatment. Current Visit: No Status: Chronic Priority: Low Code(s): C93.10 - CHRONIC MYELOMONOCYTIC LEUKEMIA NOT ACHIEVE REMISSION SNOMED Code(s): 167268675 (4) Confusion Narrative/Plan: This is new, as the pt has always been wel oriented during her office visits , other than some diminished recall. Apparently this is intermittent, at night. If this persists, pt will require further w/u Current Visit: Yes Status: Acute Code(s): R41.0 - DISORIENTATION, UNSPECIFIED SNOMED Code(s): 673284874
[2018-06-15] MEDS: LORazepam 2 MG/ML INJ IV PRN (04:05)
[2018-06-15 06:02] LABS: Glucose,Whole Blood 108 mg/dL (75-99)
[2018-06-15] MEDS: cefTRIAXone IN SWFI 1,000 MG/10 ML SYRINGE IVP SCH ×2 (06:37→21:40)
[2018-06-15] MEDS: INSULIN ASPART 100 UNIT/ML 1 ML 10 ML VIAL SQ SCH ×4 (06:38→16:47)
[2018-06-15] MEDS: SODIUM CHLORIDE 0.9% 1,000 ML IV SCH (06:38)
[2018-06-15 06:42] LABS: Anisocytosis Slight; HCT 21.2 % (34.0-46.0); Hypochromasia Marked; MCHC 30.8 g/dL (31.0-37.0); MCV 97.3 fL (80.0-100.0); Macrocytosis Slight; Platelet Count 67 k/uL (150-450); RBC 2.18 m/uL (3.80-5.40); RDW 18.1 % (11.5-15.5); WBC 6.5 k/uL (3.8-10.6)
[2018-06-15 06:51] LABS: Albumin 2.6 g/dL (3.5-5.0); Calcium 8.9 mg/dL (8.4-10.2); HGB 6.5 gm/dL (11.4-16.0); Potassium 4.2 mmol/L (3.5-5.1); Total Bilirubin 0.5 mg/dL (0.2-1.3); Total Protein 5.2 g/dL (6.3-8.2)
[2018-06-15 07:45] LABS: Lymphocytes # (M) 0.39 k/uL (1.0-4.8); Monocytes # (M) 0.85 k/uL (0-1.0); Neutrophils # (M) 5.27 k/uL (1.3-7.7); Neutrophils % (M) 81 %; Nucleated Red Blood Cells 0 /100 WBC (0-0); Total Cells Counted 100
[2018-06-15 07:47] LABS: Large Platelets Present
[2018-06-15] MEDS: DILTIAZEM CD 240 MG CAP.ER.24H PO SCH (10:47)
[2018-06-15] MEDS: OXYBUTYNIN 10 MG TAB.ER.24 PO SCH (10:47)
[2018-06-15] MEDS: LOSARTAN 50 MG TAB PO SCH (10:47)
[2018-06-15] MEDS: ATENOLOL 50 MG TAB PO SCH (10:47)
[2018-06-15 11:11] LABS: Iron Saturation 9.97 (12.00-45.00)
[2018-06-15 11:12] LABS: Glucose,Whole Blood 109 mg/dL (75-99)
--- NOTE | 2018-06-15 12:23 | P.PN ---
Subjective Progress Note Date: 06/15/18 Principal diagnosis: GI Bleed, UTI Jacqueline was seen today in follow-up. She is very anxious and confused. She yells out if you try to touch or examine her. She appears fearful. Objective - Vital Signs Vital signs: Vital Signs Temp 97.7 F 06/15/18 11:15 Pulse 87 06/15/18 11:15 Resp 14 06/15/18 11:15 BP 113/70 06/15/18 11:15 Pulse Ox 98 06/15/18 11:15 Intake & Output 06/14/18 06/15/18 06/15/18 18:59 06:59 18:59 Intake Total 360 0 Output Total 0 Balance 360 0 0 Weight 62.5 kg Intake: Oral 360 Blood Product 0 Rc As-1 Unit 0 [id number] Output: Urine 0 Other: Voiding Method Incontinent Incontinent Incontinent # Voids 1 2 - Exam Difficult to exam secondary to patients mental status. - Constitutional General appearance: no acute distress - EENT Eyes: EOMI, PERRLA ENT: hearing grossly normal, dry and lesions to lips and mouth. - Neck Neck: no lymphadenopathy Thyroid: bilateral: normal size - Respiratory Respiratory: bilateral: CTA - Cardiovascular Rhythm: irregularly irregular Tachycardia - Gastrointestinal General gastrointestinal: normal bowel sounds, soft - Integumentary Integumentary: extremities with areas of eccymosis bilateral - Neurologic confused Neurologic: unable to assess. - Musculoskeletal Musculoskeletal: strength equal bilaterally - Psychiatric confused - Labs CBC & Chem 7: 06/15/18 06:18 06/15/18 06:18 Labs: Abnormal Lab Results - Last 24 Hours (Table) 06/13/18 06/14/18 06/14/18 Range/Units 10:50 11:59 13:50 RBC (3.80-5.40) m/uL Hgb (11.4-16.0) gm/dL Hct (34.0-46.0) % MCHC (31.0-37.0) g/dL RDW (11.5-15.5) % Plt Count (150-450) k/uL Lymphocytes # (Manual) (1.0-4.8) k/uL Chloride (98-107) mmol/L Carbon Dioxide (22-30) mmol/L BUN (7-17) mg/dL Glucose (74-99) mg/dL POC Glucose (mg/dL) 126 H (75-99) mg/dL AST (14-36) U/L Total Protein (6.3-8.2) g/dL Albumin (3.5-5.0) g/dL Urine Appearance Cloudy H (Clear) Urine Protein Trace H (Negative) Urine Blood Trace H (Negative) Urine Nitrite Positive H (Negative) Ur Leukocyte Esterase Large H (Negative) Urine RBC 9 H (0-5) /hpf Urine WBC 124 H (0-5) /hpf Urine WBC Clumps Many H (None) /hpf Urine Bacteria Many H (None) /hpf Urine Yeast (Budding) Occasional H (None) /hpf Crossmatch See Detail 06/14/18 06/14/18 06/15/18 Range/Units 16:55 21:15 06:00 RBC (3.80-5.40) m/uL Hgb (11.4-16.0) gm/dL Hct (34.0-46.0) % MCHC (31.0-37.0) g/dL RDW (11.5-15.5) % Plt Count (150-450) k/uL Lymphocytes # (Manual) (1.0-4.8) k/uL Chloride (98-107) mmol/L Carbon Dioxide (22-30) mmol/L BUN (7-17) mg/dL Glucose (74-99) mg/dL POC Glucose (mg/dL) 104 H 109 H 108 H (75-99) mg/dL AST (14-36) U/L Total Protein (6.3-8.2) g/dL Albumin (3.5-5.0) g/dL Urine Appearance (Clear) Urine Protein (Negative) Urine Blood (Negative) Urine Nitrite (Negative) Ur Leukocyte Esterase (Negative) Urine RBC (0-5) /hpf Urine WBC (0-5) /hpf Urine WBC Clumps (None) /hpf Urine Bacteria (None) /hpf Urine Yeast (Budding) (None) /hpf Crossmatch 06/15/18 06/15/18 06/15/18 Range/Units 06:18 06:18 11:09 RBC 2.18 L (3.80-5.40) m/uL Hgb 6.5 L* (11.4-16.0) gm/dL Hct 21.2 L (34.0-46.0) % MCHC 30.8 L (31.0-37.0) g/dL RDW 18.1 H (11.5-15.5) % Plt Count 67 L (150-450) k/uL Lymphocytes # (Manual) 0.39 L (1.0-4.8) k/uL Chloride 117 H (98-107) mmol/L Carbon Dioxide 18 L (22-30) mmol/L BUN 28 H (7-17) mg/dL Glucose 104 H (74-99) mg/dL POC Glucose (mg/dL) 109 H (75-99) mg/dL AST 40 H (14-36) U/L Total Protein 5.2 L (6.3-8.2) g/dL Albumin 2.6 L (3.5-5.0) g/dL Urine Appearance (Clear) Urine Protein (Negative) Urine Blood (Negative) Urine Nitrite (Negative) Ur Leukocyte Esterase (Negative) Urine RBC (0-5) /hpf Urine WBC (0-5) /hpf Urine WBC Clumps (None) /hpf Urine Bacteria (None) /hpf Urine Yeast (Budding) (None) /hpf Crossmatch Microbiology - Last 24 Hours (Table) 06/14/18 13:50 Urine Culture - Preliminary Urine,Clean Catch Assessment and Plan Plan: Assessment and Plan (1) Anemia due to acute blood loss Narrative/Plan: - Her hemoglobin has dropped to 6.5 today and she will receive one unit of PRBC Current Visit: Yes Status: Acute Code(s): D62 - ACUTE POSTHEMORRHAGIC ANEMIA SNOMED Code(s): 444465169 (2) Thrombocytopenia Narrative/Plan: The patient has chronically low platelets due to her CMML. Previously platelet Counts were adequate for anticoagulation greater than 50,000. However since 2014 they have mostly been in the 30-40,000 range with intermittent levels above 50,000. As noted in the HPI, the patient has steadfastly requested to stay on anticoagulation, with full understanding of the increased risk with her platelet count, as she is more afraid of getting a recurrent stroke. Fortunately she has not had any complications so far, despite having had a few falls. Platelet counts of greater than 50,000 should also be adequate for any planned GI procedures - PLatlets are 67K today Current Visit: No Status: Chronic Priority: High Code(s): D69.6 - THROMBOCYTOPENIA, UNSPECIFIED SNOMED Code(s): 204954262 (3) CMML (chronic myelomonocytic leukemia) Narrative/Plan: This has followed an indolent course, which is typical. She has not required any treatment. Current Visit: No Status: Chronic Priority: Low Code(s): C93.10 - CHRONIC MYELOMONOCYTIC LEUKEMIA NOT ACHIEVE REMISSION SNOMED Code(s): 700562995 (4) Confusion Narrative/Plan: This is new, as the pt has always been well oriented during her office visits , other than some diminished recall. Apparently this is intermittent, at night, and has happened previously with infection. - There is concern for UTI - Although with her known thrombocytopenia on anticoagulation it is resonable to further assess with CT head as she is at high risk for recurrent thrombosis and/or bleed. - CT head has been ordered. Current Visit: Yes Status: Acute Code(s): R41.0 - DISORIENTATION, UNSPECIFIED SNOMED Code(s): 446125713
[2018-06-15 12:48] LABS: Hemoglobin A1C 5.7 % (4.0-6.0)
[2018-06-15] MEDS: PANTOPRAZOLE 40 MG/10 ML VIAL IVP SCH (13:13)
--- NOTE | 2018-06-15 13:48 | P.PN ---
Subjective Progress Note Date: 06/15/18 Principal diagnosis: Anemia, urinary tract infection, possible melena The patient remains confused. She continues to be treated with antibiotics for urinary tract infection. Per nursing staff her family's indicated that she is also been confused during previous hospitalizations during which she was being treated for a urinary tract infection. No further melena or blood per rectum reported. Objective - Vital Signs Vital signs: Vital Signs Temp 97.1 F L 06/15/18 13:10 Pulse 91 06/15/18 13:10 Resp 16 06/15/18 13:10 BP 114/64 06/15/18 13:10 Pulse Ox 91 L 06/15/18 13:10 Intake & Output 06/14/18 06/15/18 06/15/18 18:59 06:59 18:59 Intake Total 360 310 Output Total 0 Balance 360 0 310 Weight 62.5 kg Intake: Oral 360 Blood Product 310 Rc As-1 Unit 310 [id number] Output: Urine 0 Other: Voiding Method Incontinent Incontinent Incontinent # Voids 1 2 4 - Exam On physical examination, patient appears comfortable in no apparent distress. HEAD: Normocephalic, atraumatic. EYES: No clerae icterus. No conjunctival injection. MOUTH: No lesions, tongue midline. NECK: Trachea midline, no gross abnormalities. CHEST: Clear to auscultation with no wheezing or rhonchi appreciated. HEART: Regular rate no murmurs appreciated. ABDOMEN: Soft, obese. Bowel sounds are positive. No organomegaly. No guarding or rigidity. EXTREMITIES: No pedal edema. SKIN: No rashes, no jaundice. NEUROLOGIC: Alert and but not oriented. No focal deficits. - Labs CBC & Chem 7: 06/15/18 06:18 06/15/18 06:18 Labs: Abnormal Lab Results - Last 24 Hours (Table) 06/13/18 06/14/18 06/14/18 Range/Units 10:50 13:50 16:55 RBC (3.80-5.40) m/uL Hgb (11.4-16.0) gm/dL Hct (34.0-46.0) % MCHC (31.0-37.0) g/dL RDW (11.5-15.5) % Plt Count (150-450) k/uL Lymphocytes # (Manual) (1.0-4.8) k/uL Chloride (98-107) mmol/L Carbon Dioxide (22-30) mmol/L BUN (7-17) mg/dL Glucose (74-99) mg/dL POC Glucose (mg/dL) 104 H (75-99) mg/dL AST (14-36) U/L Total Protein (6.3-8.2) g/dL Albumin (3.5-5.0) g/dL Urine Appearance Cloudy H (Clear) Urine Protein Trace H (Negative) Urine Blood Trace H (Negative) Urine Nitrite Positive H (Negative) Ur Leukocyte Esterase Large H (Negative) Urine RBC 9 H (0-5) /hpf Urine WBC 124 H (0-5) /hpf Urine WBC Clumps Many H (None) /hpf Urine Bacteria Many H (None) /hpf Urine Yeast (Budding) Occasional H (None) /hpf Crossmatch See Detail 06/14/18 06/15/18 06/15/18 Range/Units 21:15 06:00 06:18 RBC 2.18 L (3.80-5.40) m/uL Hgb 6.5 L* (11.4-16.0) gm/dL Hct 21.2 L (34.0-46.0) % MCHC 30.8 L (31.0-37.0) g/dL RDW 18.1 H (11.5-15.5) % Plt Count 67 L (150-450) k/uL Lymphocytes # (Manual) 0.39 L (1.0-4.8) k/uL Chloride (98-107) mmol/L Carbon Dioxide (22-30) mmol/L BUN (7-17) mg/dL Glucose (74-99) mg/dL POC Glucose (mg/dL) 109 H 108 H (75-99) mg/dL AST (14-36) U/L Total Protein (6.3-8.2) g/dL Albumin (3.5-5.0) g/dL Urine Appearance (Clear) Urine Protein (Negative) Urine Blood (Negative) Urine Nitrite (Negative) Ur Leukocyte Esterase (Negative) Urine RBC (0-5) /hpf Urine WBC (0-5) /hpf Urine WBC Clumps (None) /hpf Urine Bacteria (None) /hpf Urine Yeast (Budding) (None) /hpf Crossmatch 08/27/18 08/27/18 Range/Units 06:18 11:09 RBC (3.80-5.40) m/uL Hgb (11.4-16.0) gm/dL Hct (34.0-46.0) % MCHC (31.0-37.0) g/dL RDW (11.5-15.5) % Plt Count (150-450) k/uL Lymphocytes # (Manual) (1.0-4.8) k/uL Chloride 117 H (98-107) mmol/L Carbon Dioxide 18 L (22-30) mmol/L BUN 28 H (7-17) mg/dL Glucose 104 H (74-99) mg/dL POC Glucose (mg/dL) 109 H (75-99) mg/dL AST 40 H (14-36) U/L Total Protein 5.2 L (6.3-8.2) g/dL Albumin 2.6 L (3.5-5.0) g/dL Urine Appearance (Clear) Urine Protein (Negative) Urine Blood (Negative) Urine Nitrite (Negative) Ur Leukocyte Esterase (Negative) Urine RBC (0-5) /hpf Urine WBC (0-5) /hpf Urine WBC Clumps (None) /hpf Urine Bacteria (None) /hpf Urine Yeast (Budding) (None) /hpf Crossmatch Microbiology - Last 24 Hours (Table) 06/14/18 13:50 Urine Culture - Preliminary Urine,Clean Catch Assessment and Plan (1) Anemia due to acute blood loss Narrative/Plan: Anemia of unclear origin patient presents with complaints of melanotic stool would suspect possible upper GI pathology such as peptic ulcer disease, severe gastritis or esophagitis, AVM, with consideration also for other GI pathology such as small bowel or lower GI. Patient was found to be positive for occult blood. Her hemoglobin has remained stable after transfusion and is currently 6.5 with 1 further unit of packed red blood cells being given. Current Visit: Yes Status: Acute Code(s): D62 - ACUTE POSTHEMORRHAGIC ANEMIA SNOMED Code(s): 228625283 (2) Hematochezia Narrative/Plan: Melena and stool positive for occult blood on presentation, secondary to above. No further melena reported per nursing staff. Current Visit: No Status: Acute Code(s): K92.1 - MELENA SNOMED Code(s): 116902990 Plan: Nothing by mouth while mentation remains poor, okay for clear liquids if tolerated Can plan on endoscopic evaluation when medically stable and mentation has improved Continue Protonix therapy Monitor hemoglobin and hematocrit and transfuse as needed Continue to hold anticoagulation until hemodynamically stable and source of bleed has been found We'll continue to follow Thank you for allowing us to participate in the care of this patient
--- NOTE | 2018-06-15 13:56 | CDI ---
Last Revision, September 2017 Documentation Clarification Form Date: 06/15/2018 01:54:00 PM From: Jacqueline LynnJENNA, CCDS Admit Date: 06/13/2018 Patient Name: Jacqueline Bay Visit Number: [id number] Discharge Date: ATTENTION: The Clinical Documentation Specialists (CDI) and [facility] Coding Staff appreciate your assistance in clarifying documentation. Please respond to the clarification below the line at the bottom and electronically sign. The CDI & [facility] Coding staff will review the response and follow-up if needed. Please note: Queries are made part of the Legal Health Record. If you have any questions, please contact the author of this message via ITS. Dr. Yris Mckinnon MD: 87 yo female, admitted with dark colored stool x2 days. History of atrial fibrillation on Coumadin, recently changed to Xarelto. Per the 06/14 progress note: the patient became confused, trying to get out of bed, given IV Ativan, has sitter bedside, found to have positive urine cultures , diagnosed with UTI. History/Risk factors: CAD, CVA, DM, GERD, Hypertension, OA & a fib Clinical Indicators: Rectal bleeding. Labs: WBC 3.4*, RBC 2.37*, Hgb 6.8, Hct 22.6*, Pl Ct 68*. Stool occult blood positive. Treatment: IV fluids 110, IV Ativan, IV Rocephin, IV Protonix, Blood transfusion : 2 units PRBCs. In your professional opinion, can you please clarify the specific type of encephalopathy, if known? Hypertensive Encephalopathy Metabolic Encephalopathy Toxic Encephalopathy Other, please specify Unable to determine Metabolic encephalopathy MTDD
--- NOTE | 2018-06-15 14:02 | CDI ---
Last Revision, September 2017 Documentation Clarification Form Date: 06/15/2018 01:54:00 PM From: Jacqueline LynnJENNA, CCDS Admit Date: 06/13/2018 Patient Name: Jacqueline Bay Visit Number: [id number] Discharge Date: ATTENTION: The Clinical Documentation Specialists (CDI) and [facility] Coding Staff appreciate your assistance in clarifying documentation. Please respond to the clarification below the line at the bottom and electronically sign. The CDI & [facility] Coding staff will review the response and follow-up if needed. Please note: Queries are made part of the Legal Health Record. If you have any questions, please contact the author of this message via ITS. Dr. Yris Mckinnon MD: 87 yo female, admitted with dark colored stool x2 days. History of atrial fibrillation on Coumadin, recently changed to Xarelto. Atrial fibrillation is documented in the History & Physical and throughout the subsequent documentation without specificity. Admitted with lower GI bleeding. History/Risk Factors: CAD, A Fib, CVA, DM, GERD, Hypertension & OA. Clinical Indicators: History of Atrial fibrillation previously on Coumadin, changed to Xarelto recently. EKG/telemetry: R 62 A fib w/freq ventricular paced complexes. Treatment: Blood transfusion: 2 units PRBCs, IV fluids, IV Ativan, IV Rocepehin (UTI). Anticoagulants held. In your professional opinion, can you please clarify the type of atrial fibrillation, if known? Chronic/Permanent Paroxysmal Persistent Other, please specify Unable to determine Permanent atrial fibrillation MTDD
--- NOTE | 2018-06-15 15:12 | P.PN ---
Subjective Progress Note Date: 06/15/18 Principal diagnosis: GI bleed Mrs. Bay is an 87 year old pleasant female with a past medical history of atrial fibrillation on anticoagulation since arrival, coronary artery disease, CVA/TIA, diabetes mellitus, GERD, hypertension, osteoarthritis coming into the hospital with a chief complaint of dark colored stool for the past 2 days. Patient states that she noticed dark colored stool and also bright red blood from her rectum and that she could smell blood from her commode. She also complains of increased fatigue. Patient states that she was taking Coumadin for anticoagulation secondary to her history of atrial fibrillation in the past. But recently has changed to Xarelto and this is her second bottle. In the ED patient stool has been tested positive for FOBT and her hemoglobin was low at 6.3. And she has been admitted to the hospital for further workup. On 06/14/2018 - last night was called as the patient was confused and trying to get out of the bed. She was more confused and had to give her Ativan to calm her down. She has a sitter at the bedside. When the patient's urine was checked it is positive for nitrites and large leukocyte esterase , so urine cultures have been obtained and she has been started on ceftriaxone. This afternoon patient was lying in the bed, as she was agitated she received a dose of Ativan few minutes back. Patient was very confused and keeps pushing away all of us as she did not want anyone to touch her. Review of systems could not be obtained as the patient is confused. On 2017 - as per the nursing staff report patient is still confused was trying to get out of the bed. She was given a dose of Ativan last night around 4 AM. This morning patient is lying in bed doesn't appear to be in acute distress. She responded by opening her eyes on calling her name. Review of systems could not be done as the patient was confused. Objective - Vital Signs Vital signs: Vital Signs Temp 97.1 F L 06/15/18 13:10 Pulse 91 06/15/18 13:10 Resp 16 06/15/18 13:10 BP 114/64 06/15/18 13:10 Pulse Ox 91 L 06/15/18 13:10 Intake & Output 06/14/18 06/15/18 06/15/18 18:59 06:59 18:59 Intake Total 360 310 Output Total 0 Balance 360 0 310 Weight 62.5 kg Intake: Oral 360 Blood Product 310 Rc As-1 Unit 310 [id number] Output: Urine 0 Other: Voiding Method Incontinent Incontinent Incontinent # Voids 1 2 4 - Exam HEAD EXAM: Atraumatic normocephalic RESPIRATORY EXAM: Bilateral breath sounds are positive. Scattered rhonchi CARDIOVASCULAR EXAM: Irregularly irregular GI/ABDOMINAL EXAM: soft, normal bowel sounds. Absent: distended, tenderness, guarding, rebound, rigid EXTREMITIES EXAM: No edema clubbing or cyanosis NEUROLOGICAL EXAM: Patient is very confused and agitated, tossing and turning in the bed SKIN EXAM: Thin and fragile - Labs CBC & Chem 7: 06/15/18 06:18 06/15/18 06:18 Labs: Abnormal Lab Results - Last 24 Hours (Table) 06/13/18 06/14/18 06/14/18 Range/Units 10:50 16:55 21:15 RBC (3.80-5.40) m/uL Hgb (11.4-16.0) gm/dL Hct (34.0-46.0) % MCHC (31.0-37.0) g/dL RDW (11.5-15.5) % Plt Count (150-450) k/uL Lymphocytes # (Manual) (1.0-4.8) k/uL Chloride (98-107) mmol/L Carbon Dioxide (22-30) mmol/L BUN (7-17) mg/dL Glucose (74-99) mg/dL POC Glucose (mg/dL) 104 H 109 H (75-99) mg/dL AST (14-36) U/L Total Protein (6.3-8.2) g/dL Albumin (3.5-5.0) g/dL Crossmatch See Detail 06/15/18 06/15/18 06/15/18 Range/Units 06:00 06:18 06:18 RBC 2.18 L (3.80-5.40) m/uL Hgb 6.5 L* (11.4-16.0) gm/dL Hct 21.2 L (34.0-46.0) % MCHC 30.8 L (31.0-37.0) g/dL RDW 18.1 H (11.5-15.5) % Plt Count 67 L (150-450) k/uL Lymphocytes # (Manual) 0.39 L (1.0-4.8) k/uL Chloride 117 H (98-107) mmol/L Carbon Dioxide 18 L (22-30) mmol/L BUN 28 H (7-17) mg/dL Glucose 104 H (74-99) mg/dL POC Glucose (mg/dL) 108 H (75-99) mg/dL AST 40 H (14-36) U/L Total Protein 5.2 L (6.3-8.2) g/dL Albumin 2.6 L (3.5-5.0) g/dL Crossmatch 06/15/18 Range/Units 11:09 RBC (3.80-5.40) m/uL Hgb (11.4-16.0) gm/dL Hct (34.0-46.0) % MCHC (31.0-37.0) g/dL RDW (11.5-15.5) % Plt Count (150-450) k/uL Lymphocytes # (Manual) (1.0-4.8) k/uL Chloride (98-107) mmol/L Carbon Dioxide (22-30) mmol/L BUN (7-17) mg/dL Glucose (74-99) mg/dL POC Glucose (mg/dL) 109 H (75-99) mg/dL AST (14-36) U/L Total Protein (6.3-8.2) g/dL Albumin (3.5-5.0) g/dL Crossmatch Microbiology - Last 24 Hours (Table) 06/14/18 13:50 Urine Culture - Preliminary Urine,Clean Catch Gram Neg Bacilli Assessment and Plan Assessment: ASSESSMENT Acute blood loss anemia Lower GI bleed Acute metabolic encephalopathy -most likely secondary to UTI UTI History of atrial fibrillation - chronic Coronary artery disease status post stenting History of CVA/TIA Type 2 diabetes mellitus CK D stage III GERD Hypertension Degenerative joint disease Chronic low back pain History of chronic myelomonocytic leukemia Peripheral neuropathy Plan: Patient has been started on ceftriaxone after obtaining blood cultures. Xarelto on hold . She was given 1 unit of PRBCs hemoglobin has come up to 7.2. GI has been consulted. Monitor H&H every 12 hours and transfuse if hemoglobin less than 7. Patient's hemoglobin has been 6.5 this morning so 1 unit of blood transfusion has been ordered. As the patient is still confused , computed tomography scan of the brain was done - results pending. Family has been updated over the phone. Further recommendations to follow depending on the progress of the patient. Overall prognosis is guarded.
--- NOTE | 2018-06-15 16:09 | CT ---
EXAMINATION TYPE: CT brain wo con DATE OF EXAM: 06/15/2018 COMPARISON: 12/07/2016 HISTORY: 87-year-old female with altered mental status, anticoagulation on hold, altered mental statu s TECHNIQUE: Examination was done in axial plane without intravenous contrast. Coronal and sagittal r econstructions performed. CT DLP: 1587.3 mGycm Automated exposure control for dose reduction was used. FINDINGS: Old area of encephalomalacia involving the right occipital lobe, stable back to 2016. Patchy perivent ricular white matter hypodensities likely relate to chronic small vessel ischemic disease. There is m ild generalized supratentorial volume loss There is no evidence of acute intracranial hemorrhage, acute ischemic changes, mass, mass-effect, or extra-axial fluid collection. There is no effacement of cerebral sulci or basal subarachnoid cister ns. There is no hydrocephalus. There is no midline shift. Nguyen-white matter distinction is preserv ed. Paranasal sinuses and mastoid air cells are well pneumatized. Visualized orbits and globes appear int act. IMPRESSION: Similar mild generalized atrophy and changes of chronic small vessel ischemic disease with old right occipital lobe infarct. No acute intracranial abnormality seen.
[2018-06-15 16:17] LABS: Glucose,Whole Blood 89 mg/dL (75-99)
[2018-06-15 21:19] LABS: Glucose,Whole Blood 76 mg/dL (75-99)
[2018-06-16] MEDS: QUEtiapine 25 MG TAB PO PRN (00:01)
[2018-06-16 06:17] LABS: Glucose,Whole Blood 120 mg/dL (75-99)
[2018-06-16 06:36] LABS: Anisocytosis Slight; HCT 27.1 % (34.0-46.0); HGB 8.4 gm/dL (11.4-16.0); Hypochromasia Marked; MCH 29.3 pg (25.0-35.0); MCHC 30.8 g/dL (31.0-37.0); MCV 95.1 fL (80.0-100.0); Macrocytosis Slight; Mean Platelet Volume 12.6; Poikilocytosis Slight; RBC 2.85 m/uL (3.80-5.40); RDW 17.5 % (11.5-15.5); WBC 5.6 k/uL (3.8-10.6)
[2018-06-16 06:49] LABS: Potassium 4.2 mmol/L (3.5-5.1)
[2018-06-16] MEDS: PANTOPRAZOLE 40 MG/10 ML VIAL IVP SCH ×3 (06:59→21:45)
[2018-06-16] MEDS: INSULIN ASPART 100 UNIT/ML 1 ML 10 ML VIAL SQ SCH ×5 (06:59→21:42)
[2018-06-16 07:37] LABS: Platelet Count 80 k/uL (150-450)
[2018-06-16 08:54] LABS: Band Neutrophils % 1 %; Eosinophils # (M) 0.06 k/uL (0-0.7); Lymphocytes # (M) 0.34 k/uL (1.0-4.8); Nucleated Red Blood Cells 0 /100 WBC (0-0)
[2018-06-16 08:56] LABS: Basophils # (M) 0.06 k/uL (0-0.2); Large Platelets Present; Monocytes # (M) 2.07 k/uL (0-1.0); Neutrophils % (M) 56 %; Total Cells Counted 200
[2018-06-16] MEDS: LOSARTAN 50 MG TAB PO SCH (08:56)
[2018-06-16] MEDS: DILTIAZEM CD 240 MG CAP.ER.24H PO SCH (08:56)
[2018-06-16] MEDS: ATENOLOL 50 MG TAB PO SCH (08:56)
[2018-06-16] MEDS: OXYBUTYNIN 10 MG TAB.ER.24 PO SCH (08:56)
--- NOTE | 2018-06-16 11:16 | P.PN ---
Subjective Progress Note Date: 06/16/18 Principal diagnosis: GI Bleed, UTI Jacqueline was seen today in follow-up. She is still very anxious and confused. Her agitation is high. Objective - Vital Signs Vital signs: Vital Signs Temp 97.0 F L 06/16/18 08:00 Pulse 115 H 06/16/18 08:00 Resp 16 06/16/18 08:00 BP 174/100 06/16/18 08:00 Pulse Ox 95 06/16/18 08:00 Intake & Output 06/15/18 06/16/18 06/16/18 18:59 06:59 18:59 Intake Total 310 Output Total 0 Balance 310 0 Weight 54.5 kg Intake: Blood Product 310 Rc As-1 Unit 310 [id number] Output: Urine 0 Other: Voiding Method Incontinent Incontinent Incontinent # Voids 4 4 - Exam Difficult to exam secondary to patients mental status. - Constitutional General appearance: no acute distress - EENT Eyes: EOMI, PERRLA ENT: hearing grossly normal, dry and lesions to lips and mouth. - Neck Neck: no lymphadenopathy Thyroid: bilateral: normal size - Respiratory Respiratory: bilateral: CTA - Cardiovascular Rhythm: irregularly irregular Tachycardia - Gastrointestinal General gastrointestinal: normal bowel sounds, soft - Integumentary Integumentary: extremities with areas of eccymosis bilateral - Neurologic confused Neurologic: unable to assess. - Musculoskeletal Musculoskeletal: strength equal bilaterally - Psychiatric confused, difficult to eamine secondary to mental status - Labs CBC & Chem 7: 06/16/18 06:13 06/16/18 06:13 Labs: Abnormal Lab Results - Last 24 Hours (Table) 06/13/18 06/13/18 06/15/18 Range/Units 10:50 10:50 11:09 RBC (3.80-5.40) m/uL Hgb (11.4-16.0) gm/dL Hct (34.0-46.0) % MCHC (31.0-37.0) g/dL RDW (11.5-15.5) % Plt Count (150-450) k/uL Lymphocytes # (Manual) (1.0-4.8) k/uL Monocytes # (Manual) (0-1.0) k/uL Chloride (98-107) mmol/L Carbon Dioxide (22-30) mmol/L BUN (7-17) mg/dL Glucose (74-99) mg/dL POC Glucose (mg/dL) 109 H (75-99) mg/dL Iron 30 L (50-170) ug/dL Iron Saturation 9.97 L (12.00-45.00) Crossmatch See Detail 06/16/18 06/16/18 06/16/18 Range/Units 06:13 06:13 06:16 RBC 2.85 L (3.80-5.40) m/uL Hgb 8.4 L D (11.4-16.0) gm/dL Hct 27.1 L (34.0-46.0) % MCHC 30.8 L (31.0-37.0) g/dL RDW 17.5 H (11.5-15.5) % Plt Count 80 L (150-450) k/uL Lymphocytes # (Manual) 0.34 L (1.0-4.8) k/uL Monocytes # (Manual) 2.07 H (0-1.0) k/uL Chloride 115 H (98-107) mmol/L Carbon Dioxide 18 L (22-30) mmol/L BUN 22 H (7-17) mg/dL Glucose 105 H (74-99) mg/dL POC Glucose (mg/dL) 120 H (75-99) mg/dL Iron (50-170) ug/dL Iron Saturation (12.00-45.00) Crossmatch Microbiology - Last 24 Hours (Table) 06/14/18 13:50 Urine Culture - Final Urine,Clean Catch Escherichia coli 06/14/18 14:30 Blood Culture - Preliminary Blood No Growth after 24 hours Assessment and Plan Plan: Assessment and Plan (1) Anemia due to acute blood loss Narrative/Plan: - Her hemoglobin is 8.4 today, stable - Continue to monitor daily CBC - Continue to Hold Anticoagulation with signs of bleeding and until confirmation that no active bleeding and stabilize. 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 Previously platelet Counts were adequate for anticoagulation greater than 50,000. However since 2014 they have mostly been in the 30-40,000 range with intermittent levels above 50,000. As noted in the HPI, the patient has steadfastly requested to stay on anticoagulation, with full understanding of the increased risk with her platelet count, as she is more afraid of getting a recurrent stroke. Fortunately she has not had any complications so far, despite having had a few falls. Platelet counts of greater than 50,000 should also be adequate for any planned GI procedures - PLatlets are 80K today Current Visit: No Status: Chronic Priority: High Code(s): D69.6 - THROMBOCYTOPENIA, UNSPECIFIED SNOMED Code(s): 076528223 (3) CMML (chronic myelomonocytic leukemia) Narrative/Plan: This has followed an indolent course, which is typical. She has not required any treatment. Current Visit: No Status: Chronic Priority: Low Code(s): C93.10 - CHRONIC MYELOMONOCYTIC LEUKEMIA NOT ACHIEVE REMISSION SNOMED Code(s): 055170911 (4) Confusion Narrative/Plan: This is new, as the pt has always been well oriented during her office visits , other than some diminished recall. Apparently this is intermittent, at night, and has happened previously with infection. - There is concern for UTI - Although with her known thrombocytopenia on anticoagulation it is resonable to further assess with CT head as she is at high risk for recurrent thrombosis and/or bleed. - CT head has been ordered and reviewed and no signs of acute bleed Current Visit: Yes Status: Acute Code(s): R41.0 - DISORIENTATION, UNSPECIFIED SNOMED Code(s): 336276129 (5) Gran Neg Bacilli UTI - Per Infectious Disease
[2018-06-16 11:35] LABS: Glucose,Whole Blood 127 mg/dL (75-99)
[2018-06-16 16:28] LABS: Glucose,Whole Blood 141 mg/dL (75-99)
[2018-06-16 21:07] LABS: Glucose,Whole Blood 118 mg/dL (75-99)
[2018-06-16] MEDS: cefTRIAXone IN SWFI 1,000 MG/10 ML SYRINGE IVP SCH (21:45)
--- NOTE | 2018-06-16 23:15 | P.PN ---
Subjective Progress Note Date: 06/16/18 Principal diagnosis: Anemia, urinary tract infection, possible melena The patient remains confused. She continues to be treated with antibiotics for urinary tract infection. Per nursing staff her family's indicated that she is also been confused during previous hospitalizations during which she was being treated for a urinary tract infection. No further melena or blood per rectum reported. Objective - Vital Signs Vital signs: Vital Signs Temp 97.0 F L 06/16/18 15:00 Pulse 95 06/16/18 16:00 Resp 16 06/16/18 15:00 BP 135/93 06/16/18 15:00 Pulse Ox 99 06/16/18 15:00 Intake & Output 06/16/18 06/16/18 06/17/18 06:59 18:59 06:59 Intake Total 0 Output Total 0 Balance 0 0 Weight 54.5 kg Intake: Oral 0 Output: Urine 0 Other: Voiding Method Incontinent Incontinent # Voids 4 3 - Exam On physical examination, patient appears comfortable in no apparent distress. HEAD: Normocephalic, atraumatic. EYES: No clerae icterus. No conjunctival injection. MOUTH: No lesions, tongue midline. NECK: Trachea midline, no gross abnormalities. CHEST: Clear to auscultation with no wheezing or rhonchi appreciated. HEART: Regular rate no murmurs appreciated. ABDOMEN: Soft, obese. Bowel sounds are positive. No organomegaly. No guarding or rigidity. EXTREMITIES: No pedal edema. SKIN: No rashes, no jaundice. NEUROLOGIC: Alert and but not oriented, patient remains confused. No focal deficits. - Labs CBC & Chem 7: 06/16/18 06:13 06/16/18 06:13 Labs: Abnormal Lab Results - Last 24 Hours (Table) 06/16/18 06/16/18 06/16/18 Range/Units 06:13 06:13 06:16 RBC 2.85 L (3.80-5.40) m/uL Hgb 8.4 L D (11.4-16.0) gm/dL Hct 27.1 L (34.0-46.0) % MCHC 30.8 L (31.0-37.0) g/dL RDW 17.5 H (11.5-15.5) % Plt Count 80 L (150-450) k/uL Lymphocytes # (Manual) 0.34 L (1.0-4.8) k/uL Monocytes # (Manual) 2.07 H (0-1.0) k/uL Chloride 115 H (98-107) mmol/L Carbon Dioxide 18 L (22-30) mmol/L BUN 22 H (7-17) mg/dL Glucose 105 H (74-99) mg/dL POC Glucose (mg/dL) 120 H (75-99) mg/dL 06/16/18 06/16/18 06/16/18 Range/Units 11:32 16:24 21:06 RBC (3.80-5.40) m/uL Hgb (11.4-16.0) gm/dL Hct (34.0-46.0) % MCHC (31.0-37.0) g/dL RDW (11.5-15.5) % Plt Count (150-450) k/uL Lymphocytes # (Manual) (1.0-4.8) k/uL Monocytes # (Manual) (0-1.0) k/uL Chloride (98-107) mmol/L Carbon Dioxide (22-30) mmol/L BUN (7-17) mg/dL Glucose (74-99) mg/dL POC Glucose (mg/dL) 127 H 141 H 118 H (75-99) mg/dL Microbiology - Last 24 Hours (Table) 06/14/18 14:30 Blood Culture - Preliminary Blood No Growth after 48 hours 06/14/18 13:50 Urine Culture - Final Urine,Clean Catch Escherichia coli Assessment and Plan (1) Anemia due to acute blood loss Narrative/Plan: Anemia of unclear origin patient presents with complaints of melanotic stool would suspect possible upper GI pathology such as peptic ulcer disease, severe gastritis or esophagitis, AVM, with consideration also for other GI pathology such as small bowel or lower GI. Patient was found to be positive for occult blood. Her hemoglobin has remained stable after transfusion and is currently 8.4 after receiving one additional unit of red blood cells. Current Visit: Yes Status: Acute Code(s): D62 - ACUTE POSTHEMORRHAGIC ANEMIA SNOMED Code(s): 569958457 (2) Hematochezia Narrative/Plan: Melena and stool positive for occult blood on presentation, secondary to above. No further melena reported per nursing staff. Current Visit: No Status: Acute Code(s): K92.1 - MELENA SNOMED Code(s): 277204099 Plan: Nothing by mouth while mentation remains poor, okay for regular diet if tolerated Can plan on endoscopic evaluation when medically stable and mentation has improved Continue Protonix therapy Monitor hemoglobin and hematocrit and transfuse as needed Continue to hold anticoagulation until hemodynamically stable and source of bleed has been found Hematology/oncology service following appreciate the recommendations We'll continue to follow Thank you for allowing us to participate in the care of this patient
[2018-06-17] MEDS: QUEtiapine 25 MG TAB PO PRN ×2 (02:28→20:32)
[2018-06-17 07:49] LABS: Glucose,Whole Blood 121 mg/dL (75-99)
[2018-06-17] MEDS: INSULIN ASPART 100 UNIT/ML 1 ML 10 ML VIAL SQ SCH ×4 (08:19→22:12)
[2018-06-17] MEDS: ATENOLOL 50 MG TAB PO SCH (08:25)
[2018-06-17] MEDS: DILTIAZEM CD 240 MG CAP.ER.24H PO SCH (08:25)
[2018-06-17] MEDS: OXYBUTYNIN 10 MG TAB.ER.24 PO SCH (08:25)
[2018-06-17] MEDS: PANTOPRAZOLE 40 MG/10 ML VIAL IVP SCH ×2 (08:25→21:57)
[2018-06-17] MEDS: LOSARTAN 50 MG TAB PO SCH (08:25)
[2018-06-17 09:15] LABS: Anisocytosis Slight; HCT 26.6 % (34.0-46.0); HGB 8.4 gm/dL (11.4-16.0); Hypochromasia Marked; MCH 30.7 pg (25.0-35.0); MCHC 31.4 g/dL (31.0-37.0); MCV 97.8 fL (80.0-100.0); Macrocytosis Slight; Mean Platelet Volume 10.4; Poikilocytosis Slight; RBC 2.72 m/uL (3.80-5.40); RDW 17.5 % (11.5-15.5); WBC 5.8 k/uL (3.8-10.6)
[2018-06-17 09:33] LABS: Platelet Count 86 k/uL (150-450)
--- NOTE | 2018-06-17 11:24 | CT ---
EXAMINATION TYPE: CT abdomen pelvis wo con DATE OF EXAM: 06/17/2018 COMPARISON: 01/11/2013 HISTORY: anemia, possible retroperitoneal hemorrhage Examination of the solid and hollow viscera is limited given the lack of contrast. FINDINGS: LUNG BASES: There is evidence of cardiomegaly. Basilar parenchymal scarring and small right-sided pl eural effusion identified. LIVER/GB: Cholecystectomy clips are in place. No space-occupying hepatic lesion. PANCREAS: No pancreatic mass identified. No inflammatory process seen. SPLEEN: No evidence for splenomegaly. No intrasplenic lesions seen. ADRENALS: No adrenal nodules identified. No evidence for thickening. KIDNEYS: No evidence for solid renal mass. Hypoattenuating lesion left kidney measures 2.9 cm and is felt to reflect a cyst. No nephrolithiasis. No hydronephrosis. BOWEL: Appendix has a normal appearance. No evidence of bowel obstruction. No inflammatory process. S igmoid diverticulosis without diverticulitis at this time. Lymph nodes: No evidence for adenopathy greater than 1 cm. Abdominal aorta: Atheromatous changes seen. No evidence for aneurysm. Diffuse vascular calcifications . No evidence for retroperitoneal hemorrhage. Genital organs: Calcified fibroid uterus identified. No adnexal masses seen. Other: Severe degenerative change lumbar spine with lumbar laminectomy changes are identified. IMPRESSION: 1. No evidence for retroperitoneal hemorrhage. 2. No acute process identified.
[2018-06-17 12:22] LABS: Glucose,Whole Blood 195 mg/dL (75-99)
[2018-06-17] MEDS: ACETAMINOPHEN TAB 325 MG TAB PO PRN (16:24)
[2018-06-17 17:30] LABS: Glucose,Whole Blood 231 mg/dL (75-99)
--- NOTE | 2018-06-17 21:46 | P.PN ---
Subjective Progress Note Date: 06/17/18 Principal diagnosis: GI Bleed, UTI Jacqueline was seen today in follow-up. She is still very anxious and confused. Mild improvements overnight Objective - Vital Signs Vital signs: Vital Signs Temp 98.2 F 06/17/18 14:45 Pulse 70 06/17/18 19:30 Resp 16 06/17/18 19:30 BP 144/63 06/17/18 14:45 Pulse Ox 100 06/17/18 14:45 Intake & Output 06/17/18 06/17/18 06/18/18 06:59 18:59 06:59 Intake Total 100 Output Total 0 Balance 100 Weight 54.5 kg Intake: Oral 100 Output: Urine 0 Other: Voiding Method Incontinent # Voids 2 1 - Exam Difficult to exam secondary to patients mental status. - Constitutional General appearance: no acute distress - EENT Eyes: EOMI, PERRLA ENT: hearing grossly normal, dry and lesions to lips and mouth. - Neck Neck: no lymphadenopathy Thyroid: bilateral: normal size - Respiratory Respiratory: bilateral: CTA - Cardiovascular Rhythm: irregularly irregular Tachycardia - Gastrointestinal General gastrointestinal: normal bowel sounds, soft - Integumentary Integumentary: extremities with areas of eccymosis bilateral - Neurologic confused Neurologic: unable to assess. - Musculoskeletal Musculoskeletal: strength equal bilaterally - Psychiatric confused, difficult to eamine secondary to mental status - Labs CBC & Chem 7: 06/17/18 08:58 06/16/18 06:13 Labs: Abnormal Lab Results - Last 24 Hours (Table) 06/17/18 06/17/18 06/17/18 Range/Units 07:36 08:58 12:19 RBC 2.72 L (3.80-5.40) m/uL Hgb 8.4 L (11.4-16.0) gm/dL Hct 26.6 L (34.0-46.0) % RDW 17.5 H (11.5-15.5) % Plt Count 86 L (150-450) k/uL POC Glucose (mg/dL) 121 H 195 H (75-99) mg/dL 06/17/18 Range/Units 17:11 RBC (3.80-5.40) m/uL Hgb (11.4-16.0) gm/dL Hct (34.0-46.0) % RDW (11.5-15.5) % Plt Count (150-450) k/uL POC Glucose (mg/dL) 231 H (75-99) mg/dL Microbiology - Last 24 Hours (Table) 06/14/18 14:30 Blood Culture - Preliminary Blood No Growth after 72 hours Assessment and Plan Plan: Assessment and Plan (1) Anemia due to acute blood loss Narrative/Plan: - Her hemoglobin is 8.4 today, stable - Continue to monitor daily CBC - Continue to Hold Anticoagulation with signs of bleeding and until confirmation that no active bleeding and stabilize. - Component of Iron Deficiency, as she is on antibiotics and blood cultures negative may order Parental Iron replacement, will discuss with Dr. 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 Previously platelet Counts were adequate for anticoagulation greater than 50,000. However since 2014 they have mostly been in the 30-40,000 range with intermittent levels above 50,000. As noted in the HPI, the patient has steadfastly requested to stay on anticoagulation, with full understanding of the increased risk with her platelet count, as she is more afraid of getting a recurrent stroke. Fortunately she has not had any complications so far, despite having had a few falls. Platelet counts of greater than 50,000 should also be adequate for any planned GI procedures - PLatlets are stable 86 today Current Visit: No Status: Chronic Priority: High Code(s): D69.6 - THROMBOCYTOPENIA, UNSPECIFIED SNOMED Code(s): 779625118 (3) CMML (chronic myelomonocytic leukemia) Narrative/Plan: This has followed an indolent course, which is typical. She has not required any treatment. Current Visit: No Status: Chronic Priority: Low Code(s): C93.10 - CHRONIC MYELOMONOCYTIC LEUKEMIA NOT ACHIEVE REMISSION SNOMED Code(s): 154873149 (4) Confusion Narrative/Plan: This is new, as the pt has always been well oriented during her office visits , other than some diminished recall. Apparently this is intermittent, at night, and has happened previously with infection. - There is concern for UTI - Although with her known thrombocytopenia on anticoagulation it is resonable to further assess with CT head as she is at high risk for recurrent thrombosis and/or bleed. - CT head has been ordered and reviewed and no signs of acute bleed Current Visit: Yes Status: Acute Code(s): R41.0 - DISORIENTATION, UNSPECIFIED SNOMED Code(s): 997889093 (5) Gran Neg Bacilli UTI - Per Infectious Disease
[2018-06-17 21:57] LABS: Glucose,Whole Blood 97 mg/dL (75-99)
[2018-06-17] MEDS: cefTRIAXone IN SWFI 1,000 MG/10 ML SYRINGE IVP SCH (21:58)
--- NOTE | 2018-06-17 23:14 | P.PN ---
Subjective Progress Note Date: 06/16/18 Principal diagnosis: GI bleed Mrs. Bay is an 87 year old pleasant female with a past medical history of atrial fibrillation on anticoagulation since arrival, coronary artery disease, CVA/TIA, diabetes mellitus, GERD, hypertension, osteoarthritis coming into the hospital with a chief complaint of dark colored stool for the past 2 days. Patient states that she noticed dark colored stool and also bright red blood from her rectum and that she could smell blood from her commode. She also complains of increased fatigue. Patient states that she was taking Coumadin for anticoagulation secondary to her history of atrial fibrillation in the past. But recently has changed to Xarelto and this is her second bottle. In the ED patient stool has been tested positive for FOBT and her hemoglobin was low at 6.3. And she has been admitted to the hospital for further workup. On 06/14/2018 - last night was called as the patient was confused and trying to get out of the bed. She was more confused and had to give her Ativan to calm her down. She has a sitter at the bedside. When the patient's urine was checked it is positive for nitrites and large leukocyte esterase , so urine cultures have been obtained and she has been started on ceftriaxone. This afternoon patient was lying in the bed, as she was agitated she received a dose of Ativan few minutes back. Patient was very confused and keeps pushing away all of us as she did not want anyone to touch her. Review of systems could not be obtained as the patient is confused. On 2017 - as per the nursing staff report patient is still confused was trying to get out of the bed. She was given a dose of Ativan last night around 4 AM. This morning patient is lying in bed doesn't appear to be in acute distress. She responded by opening her eyes on calling her name. Review of systems could not be done as the patient was confused. 06/16/2018 Patient is still confused. Patient is able to open her eyes with verbal stimuli. Appears to be in no acute distress. CT and other neurologic workup has been negative. Hemoglobin 8.4 today. No fever no chills. Urine culture showed E. coli. Complete review of systems could not be obtained from the patient Objective - Vital Signs Vital signs: Vital Signs Temp 97.2 F L 06/16/18 11:03 Pulse 89 06/16/18 11:04 Resp 16 06/16/18 11:03 BP 165/73 06/16/18 11:03 Pulse Ox 95 06/16/18 11:03 Intake & Output 06/15/18 06/16/18 06/16/18 18:59 06:59 18:59 Intake Total 310 Output Total 0 Balance 310 0 Weight 54.5 kg Intake: Blood Product 310 Rc As-1 Unit 310 [id number] Output: Urine 0 Other: Voiding Method Incontinent Incontinent Incontinent # Voids 4 4 - Exam HEAD EXAM: Atraumatic normocephalic RESPIRATORY EXAM: Bilateral breath sounds are positive. Scattered rhonchi CARDIOVASCULAR EXAM: Irregularly irregular GI/ABDOMINAL EXAM: soft, normal bowel sounds. Absent: distended, tenderness, guarding, rebound, rigid EXTREMITIES EXAM: No edema clubbing or cyanosis NEUROLOGICAL EXAM: Patient is very confused and agitated, tossing and turning in the bed SKIN EXAM: Thin and fragile - Labs CBC & Chem 7: 06/17/18 08:58 06/16/18 06:13 Labs: Abnormal Lab Results - Last 24 Hours (Table) 06/13/18 06/13/18 06/15/18 Range/Units 10:50 10:50 11:09 RBC (3.80-5.40) m/uL Hgb (11.4-16.0) gm/dL Hct (34.0-46.0) % MCHC (31.0-37.0) g/dL RDW (11.5-15.5) % Plt Count (150-450) k/uL Lymphocytes # (Manual) (1.0-4.8) k/uL Monocytes # (Manual) (0-1.0) k/uL Chloride (98-107) mmol/L Carbon Dioxide (22-30) mmol/L BUN (7-17) mg/dL Glucose (74-99) mg/dL POC Glucose (mg/dL) 109 H (75-99) mg/dL Iron 30 L (50-170) ug/dL Iron Saturation 9.97 L (12.00-45.00) Crossmatch See Detail 06/16/18 06/16/18 06/16/18 Range/Units 06:13 06:13 06:16 RBC 2.85 L (3.80-5.40) m/uL Hgb 8.4 L D (11.4-16.0) gm/dL Hct 27.1 L (34.0-46.0) % MCHC 30.8 L (31.0-37.0) g/dL RDW 17.5 H (11.5-15.5) % Plt Count 80 L (150-450) k/uL Lymphocytes # (Manual) 0.34 L (1.0-4.8) k/uL Monocytes # (Manual) 2.07 H (0-1.0) k/uL Chloride 115 H (98-107) mmol/L Carbon Dioxide 18 L (22-30) mmol/L BUN 22 H (7-17) mg/dL Glucose 105 H (74-99) mg/dL POC Glucose (mg/dL) 120 H (75-99) mg/dL Iron (50-170) ug/dL Iron Saturation (12.00-45.00) Crossmatch Microbiology - Last 24 Hours (Table) 06/14/18 13:50 Urine Culture - Final Urine,Clean Catch Escherichia coli 06/14/18 14:30 Blood Culture - Preliminary Blood No Growth after 24 hours Assessment and Plan Assessment: Acute blood loss anemia Lower GI bleed Acute metabolic encephalopathy -most likely secondary to UTI E. 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 Peripheral neuropathy Plan: Patient has been started on ceftriaxone after obtaining blood cultures and urine cultures.. Xarelto on hold . She was given 2 unit of PRBCs hemoglobin has come up to 7.2--8.5. GI has been consulted. Monitor H&H every 12 hours and transfuse if hemoglobin less than 7. As the patient is still confused ,computed tomography scan of the brain was done - no acute process noted.. Family has been updated over the phone. Further recommendations to follow depending on the progress of the patient. Overall prognosis is guarded. Time with Patient: Greater than 30
--- NOTE | 2018-06-17 23:17 | P.PN ---
Subjective Progress Note Date: 06/17/18 Principal diagnosis: GI bleed Mrs. Bay is an 87 year old pleasant female with a past medical history of atrial fibrillation on anticoagulation since arrival, coronary artery disease, CVA/TIA, diabetes mellitus, GERD, hypertension, osteoarthritis coming into the hospital with a chief complaint of dark colored stool for the past 2 days. Patient states that she noticed dark colored stool and also bright red blood from her rectum and that she could smell blood from her commode. She also complains of increased fatigue. Patient states that she was taking Coumadin for anticoagulation secondary to her history of atrial fibrillation in the past. But recently has changed to Xarelto and this is her second bottle. In the ED patient stool has been tested positive for FOBT and her hemoglobin was low at 6.3. And she has been admitted to the hospital for further workup. On 06/14/2018 - last night was called as the patient was confused and trying to get out of the bed. She was more confused and had to give her Ativan to calm her down. She has a sitter at the bedside. When the patient's urine was checked it is positive for nitrites and large leukocyte esterase , so urine cultures have been obtained and she has been started on ceftriaxone. This afternoon patient was lying in the bed, as she was agitated she received a dose of Ativan few minutes back. Patient was very confused and keeps pushing away all of us as she did not want anyone to touch her. Review of systems could not be obtained as the patient is confused. On 2017 - as per the nursing staff report patient is still confused was trying to get out of the bed. She was given a dose of Ativan last night around 4 AM. This morning patient is lying in bed doesn't appear to be in acute distress. She responded by opening her eyes on calling her name. Review of systems could not be done as the patient was confused. 06/16/2018 Patient is still confused. Patient is able to open her eyes with verbal stimuli. Appears to be in no acute distress. CT and other neurologic workup has been negative. Hemoglobin 8.4 today. No fever no chills. Urine culture showed E. coli. 06/17/2018 Patient is still confused but responding to verbal stimuli. No fever no chills. Hemoglobin is stable at 8.5. No fever no chills. No other acute overnight issues. Complete review of systems could not be obtained from the patient Objective - Vital Signs Vital signs: Vital Signs Temp 98.2 F 06/17/18 14:45 Pulse 70 06/17/18 19:30 Resp 16 06/17/18 19:30 BP 144/63 06/17/18 14:45 Pulse Ox 100 06/17/18 14:45 Intake & Output 06/17/18 06/17/18 06/18/18 06:59 18:59 06:59 Intake Total 100 Output Total 0 Balance 100 Weight 54.5 kg Intake: Oral 100 Output: Urine 0 Other: Voiding Method Incontinent # Voids 2 1 - Exam HEAD EXAM: Atraumatic normocephalic RESPIRATORY EXAM: Bilateral breath sounds are positive. Scattered rhonchi CARDIOVASCULAR EXAM: Irregularly irregular GI/ABDOMINAL EXAM: soft, normal bowel sounds. Absent: distended, tenderness, guarding, rebound, rigid EXTREMITIES EXAM: No edema clubbing or cyanosis NEUROLOGICAL EXAM: Patient is very confused and agitated, tossing and turning in the bed SKIN EXAM: Thin and fragile - Labs CBC & Chem 7: 06/17/18 08:58 06/16/18 06:13 Labs: Abnormal Lab Results - Last 24 Hours (Table) 06/17/18 06/17/18 06/17/18 Range/Units 07:36 08:58 12:19 RBC 2.72 L (3.80-5.40) m/uL Hgb 8.4 L (11.4-16.0) gm/dL Hct 26.6 L (34.0-46.0) % RDW 17.5 H (11.5-15.5) % Plt Count 86 L (150-450) k/uL POC Glucose (mg/dL) 121 H 195 H (75-99) mg/dL 06/17/18 Range/Units 17:11 RBC (3.80-5.40) m/uL Hgb (11.4-16.0) gm/dL Hct (34.0-46.0) % RDW (11.5-15.5) % Plt Count (150-450) k/uL POC Glucose (mg/dL) 231 H (75-99) mg/dL Microbiology - Last 24 Hours (Table) 06/14/18 14:30 Blood Culture - Preliminary Blood No Growth after 72 hours Assessment and Plan Assessment: Acute blood loss anemia Lower GI bleed Acute metabolic encephalopathy -most likely secondary to UTI E. 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 Peripheral neuropathy Plan: Patient has been started on ceftriaxone after obtaining blood cultures and urine cultures.. Xarelto on hold . She was given 2 unit of PRBCs hemoglobin has come up to 7.2--8.5. GI has been consulted. Monitor H&H every 12 hours and transfuse if hemoglobin less than 7. As the patient is still confused ,computed tomography scan of the brain was done - no acute process noted.. Family has been updated over the phone. Further recommendations to follow depending on the progress of the patient. Overall prognosis is guarded. Time with Patient: Greater than 30
--- NOTE | 2018-06-17 23:53 | P.PN ---
Subjective Progress Note Date: 06/17/18 Principal diagnosis: Anemia, urinary tract infection, possible melena The patient remains confused, but mentation is improved today. She continues to be treated with antibiotics for urinary tract infection. Per nursing staff her family's indicated that she is also been confused during previous hospitalizations during which she was being treated for a urinary tract infection. No further melena or blood per rectum reported. Objective - Vital Signs Vital signs: Vital Signs Temp 98.2 F 06/17/18 14:45 Pulse 70 06/17/18 19:30 Resp 16 06/17/18 19:30 BP 144/63 06/17/18 14:45 Pulse Ox 100 06/17/18 14:45 Intake & Output 06/17/18 06/17/18 06/18/18 06:59 18:59 06:59 Intake Total 100 Output Total 0 Balance 100 Weight 54.5 kg Intake: Oral 100 Output: Urine 0 Other: Voiding Method Incontinent # Voids 2 1 - Exam On physical examination, patient appears comfortable in no apparent distress. HEAD: Normocephalic, atraumatic. EYES: No clerae icterus. No conjunctival injection. MOUTH: No lesions, tongue midline. NECK: Trachea midline, no gross abnormalities. CHEST: Clear to auscultation with no wheezing or rhonchi appreciated. HEART: Regular rate no murmurs appreciated. ABDOMEN: Soft, obese. Bowel sounds are positive. No organomegaly. No guarding or rigidity. EXTREMITIES: No pedal edema. SKIN: No rashes, no jaundice. NEUROLOGIC: Alert and but not oriented, patient remains confused but is more conversive today. No focal deficits. - Labs CBC & Chem 7: 06/17/18 08:58 06/16/18 06:13 Labs: Abnormal Lab Results - Last 24 Hours (Table) 06/17/18 06/17/18 06/17/18 Range/Units 07:36 08:58 12:19 RBC 2.72 L (3.80-5.40) m/uL Hgb 8.4 L (11.4-16.0) gm/dL Hct 26.6 L (34.0-46.0) % RDW 17.5 H (11.5-15.5) % Plt Count 86 L (150-450) k/uL POC Glucose (mg/dL) 121 H 195 H (75-99) mg/dL 06/17/18 Range/Units 17:11 RBC (3.80-5.40) m/uL Hgb (11.4-16.0) gm/dL Hct (34.0-46.0) % RDW (11.5-15.5) % Plt Count (150-450) k/uL POC Glucose (mg/dL) 231 H (75-99) mg/dL Microbiology - Last 24 Hours (Table) 06/14/18 14:30 Blood Culture - Preliminary Blood No Growth after 72 hours Assessment and Plan (1) Anemia due to acute blood loss Narrative/Plan: Anemia of unclear origin patient presents with complaints of melanotic stool would suspect possible upper GI pathology such as peptic ulcer disease, severe gastritis or esophagitis, AVM, with consideration also for other GI pathology such as small bowel or lower GI. Patient was found to be positive for occult blood. Her hemoglobin has remained stable after transfusion and is currently 8.4 after receiving one additional unit of red blood cells, with repeat draw stable at 8.4. Current Visit: Yes Status: Acute Code(s): D62 - ACUTE POSTHEMORRHAGIC ANEMIA SNOMED Code(s): 682708863 (2) Hematochezia Narrative/Plan: Melena and stool positive for occult blood on presentation, secondary to above. No further melena reported per nursing staff. Current Visit: No Status: Acute Code(s): K92.1 - MELENA SNOMED Code(s): 237251015 Plan: Nothing by mouth while mentation remains poor, okay for regular diet if tolerated Can plan on endoscopic evaluation when medically stable and mentation has improved Continue Protonix therapy Monitor hemoglobin and hematocrit and transfuse as needed Continue to hold anticoagulation until hemodynamically stable and source of bleed has been found Hematology/oncology service following appreciate the recommendations We'll continue to follow Thank you for allowing us to participate in the care of this patient
[2018-06-18 07:04] LABS: Glucose,Whole Blood 130 mg/dL (75-99)
[2018-06-18] MEDS: INSULIN ASPART 100 UNIT/ML 1 ML 10 ML VIAL SQ SCH ×4 (07:16→21:35)
[2018-06-18] MEDS: ACETAMINOPHEN TAB 325 MG TAB PO PRN ×2 (08:55→21:35)
[2018-06-18] MEDS: PANTOPRAZOLE 40 MG/10 ML VIAL IVP SCH ×2 (08:56→21:01)
[2018-06-18] MEDS: OXYBUTYNIN 10 MG TAB.ER.24 PO SCH (08:56)
[2018-06-18] MEDS: DILTIAZEM CD 240 MG CAP.ER.24H PO SCH (08:56)
[2018-06-18] MEDS: ATENOLOL 50 MG TAB PO SCH (08:56)
[2018-06-18] MEDS: LOSARTAN 50 MG TAB PO SCH (08:56)
[2018-06-18 11:54] LABS: Glucose,Whole Blood 250 mg/dL (75-99)
[2018-06-18 14:10] VITALS: BMI 21.9
--- NOTE | 2018-06-18 16:53 | P.PN ---
Subjective Progress Note Date: 06/18/18 Principal diagnosis: GI Bleed, UTI Jacqueline was seen today in follow-up. She is awake and alert today. Less anxious and able to communicate appropriately. PAtient's mental status has greatly improved, had a long discussion with her today and she understands the risks and benefits of returning to anticoagulation therapy versus witholding anticoagulation. WILl discuss with GI , recommend colonoscopy and EGD to confirm no active bleeding and if confirmed will restart patient on anticoagulation as the risk for thrombotic event is extremely high with Jacqueline. Objective - Vital Signs Vital signs: Vital Signs Temp 97.4 F L 06/18/18 15:00 Pulse 61 06/18/18 15:59 Resp 16 06/18/18 15:59 BP 106/69 06/18/18 15:00 Pulse Ox 99 06/18/18 15:00 Intake & Output 06/17/18 06/18/18 06/18/18 18:59 06:59 18:59 Intake Total 100 100 100 Output Total 0 0 Balance 100 100 100 Weight 54.5 kg 54.5 kg Intake: Oral 100 100 100 Output: Urine 0 0 Other: Voiding Method Incontinent Bedpan Bedpan Incontinent Incontinent # Voids 1 2 2 # Bowel Movements 0 - Exam - Constitutional General appearance: no acute distress, alert and oriented today - EENT EOMI, PERRLA dry and lesions to lips and mouth. - Neck Suppleno lymphadenopathy, trachea midline - Respiratory bilateral: CTA - Cardiovascular irregularly irregular Tachycardia - Gastrointestinal normal bowel sounds, soft - Integumentary extremities with areas of eccymosis bilateral - Neurologic no focal defects - Musculoskeletal strength equal bilaterally - Psychiatric calm cooperative and oriented - Labs CBC & Chem 7: 06/17/18 08:58 06/16/18 06:13 Labs: Abnormal Lab Results - Last 24 Hours (Table) 06/17/18 06/18/18 06/18/18 Range/Units 17:11 06:58 11:50 POC Glucose (mg/dL) 231 H 130 H 250 H (75-99) mg/dL Microbiology - Last 24 Hours (Table) 06/14/18 14:30 Blood Culture - Preliminary Blood No Growth after 96 hours Assessment and Plan Plan: Assessment and Plan (1) Anemia due to acute blood loss Narrative/Plan: - Her hemoglobin is 8.4 today, stable - Continue to monitor daily CBC - Continue to Hold Anticoagulation with signs of bleeding and until confirmation that no active bleeding and stabilize. - Component of Iron Deficiency, as she is on antibiotics and blood cultures negative may order Parental Iron replacement, will discuss with Dr. 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 Previously platelet Counts were adequate for anticoagulation greater than 50,000. However since 2015 they have mostly been in the 30-40,000 range with intermittent levels above 50,000. As noted in the HPI, the patient has steadfastly requested to stay on anticoagulation, with full understanding of the increased risk with her platelet count, as she is more afraid of getting a recurrent stroke. Fortunately she has not had any complications so far, despite having had a few falls. Platelet counts of greater than 50,000 should also be adequate for any planned GI procedures - PLatlets are stable Current Visit: No Status: Chronic Priority: High Code(s): D69.6 - THROMBOCYTOPENIA, UNSPECIFIED SNOMED Code(s): 582865709 (3) CMML (chronic myelomonocytic leukemia) Narrative/Plan: This has followed an indolent course, which is typical. She has not required any treatment. Current Visit: No Status: Chronic Priority: Low Code(s): C93.10 - CHRONIC MYELOMONOCYTIC LEUKEMIA NOT ACHIEVE REMISSION SNOMED Code(s): 838668932 (4) Confusion - Resolved Narrative/Plan: This is new, as the pt has always been well oriented during her office visits , other than some diminished recall. Apparently this is intermittent, at night, and has happened previously with infection. - There is concern for UTI - Although with her known thrombocytopenia on anticoagulation it is resonable to further assess with CT head as she is at high risk for recurrent thrombosis and/or bleed. - CT head has been ordered and reviewed and no signs of acute bleed Current Visit: Yes Status: Acute Code(s): R41.0 - DISORIENTATION, UNSPECIFIED SNOMED Code(s): 506316423 (5) Gran Neg Bacilli UTI - Per Infectious Disease PLAN: PAtient's mental status has greatly improved, had a long discussion with her today and she understands the risks and benefits of returning to anticoagulation therapy versus witholding anticoagulation. WILl discuss with GI , recommend colonoscopy and EGD to confirm no active bleeding and if confirmed will restart patient on anticoagulation as the risk for thrombotic event is extremely high with Jacqueline.
[2018-06-18 17:11] LABS: Glucose,Whole Blood 140 mg/dL (75-99)
--- NOTE | 2018-06-18 19:50 | P.PN ---
Subjective Progress Note Date: 06/18/18 Principal diagnosis: Anemia, urinary tract infection, possible melena The patient is more conversive today. She is asking for juice and water. She is denying any bowel movements. No abdominal pain at present. Objective - Vital Signs Vital signs: Vital Signs Temp 97.4 F L 06/18/18 15:00 Pulse 61 06/18/18 15:59 Resp 16 06/18/18 15:59 BP 106/69 06/18/18 15:00 Pulse Ox 99 06/18/18 15:00 Intake & Output 06/18/18 06/18/18 06/19/18 06:59 18:59 06:59 Intake Total 100 100 Output Total 0 Balance 100 100 Weight 54.5 kg Intake: Oral 100 100 Output: Urine 0 Other: Voiding Method Bedpan Bedpan Incontinent Incontinent # Voids 2 2 # Bowel Movements 0 - Exam On physical examination, patient appears comfortable in no apparent distress. HEAD: Normocephalic, atraumatic. EYES: No clerae icterus. No conjunctival injection. MOUTH: No lesions, tongue midline. NECK: Trachea midline, no gross abnormalities. CHEST: Clear to auscultation with no wheezing or rhonchi appreciated. HEART: Regular rate no murmurs appreciated. ABDOMEN: Soft, obese. Bowel sounds are positive. No organomegaly. No guarding or rigidity. EXTREMITIES: No pedal edema. SKIN: No rashes, no jaundice. NEUROLOGIC: Alert and more interactive. No focal deficits - Labs CBC & Chem 7: 06/17/18 08:58 06/16/18 06:13 Labs: Abnormal Lab Results - Last 24 Hours (Table) 06/18/18 06/18/18 06/18/18 Range/Units 06:58 11:50 17:08 POC Glucose (mg/dL) 130 H 250 H 140 H (75-99) mg/dL Microbiology - Last 24 Hours (Table) 06/14/18 14:30 Blood Culture - Preliminary Blood No Growth after 96 hours Assessment and Plan (1) Anemia due to acute blood loss Narrative/Plan: Anemia of unclear origin patient presents with complaints of melanotic stool would suspect possible upper GI pathology such as peptic ulcer disease, severe gastritis or esophagitis, AVM, with consideration also for other GI pathology such as small bowel or lower GI. Patient was found to be positive for occult blood. Her hemoglobin has remained stable after transfusion and is currently 8.4 after receiving one additional unit of red blood cells, with repeat draw stable at 8.4. Current Visit: Yes Status: Acute Code(s): D62 - ACUTE POSTHEMORRHAGIC ANEMIA SNOMED Code(s): 170355143 (2) Hematochezia Narrative/Plan: Melena and stool positive for occult blood on presentation, secondary to above. No further melena reported per nursing staff. Current Visit: No Status: Acute Code(s): K92.1 - MELENA SNOMED Code(s): 462453093 Plan: Okay for diet Plan for EGD tomorrow in presentation of melena and stool positive for occult blood Continue Protonix therapy Monitor hemoglobin and hematocrit and transfuse as needed Continue to hold anticoagulation until hemodynamically stable and source of bleed has been found Hematology/oncology service following appreciate the recommendations We'll continue to follow Thank you for allowing us to participate in the care of this patient
[2018-06-18 20:34] LABS: Glucose,Whole Blood 166 mg/dL (75-99)
[2018-06-18] MEDS: cefTRIAXone IN SWFI 1,000 MG/10 ML SYRINGE IVP SCH (21:01)
[2018-06-18] MEDS: QUEtiapine 25 MG TAB PO PRN (21:01)
--- NOTE | 2018-06-18 23:46 | P.PN ---
Subjective Progress Note Date: 06/18/18 Principal diagnosis: GI bleed Mrs. Bay is an 87 year old pleasant female with a past medical history of atrial fibrillation on anticoagulation since arrival, coronary artery disease, CVA/TIA, diabetes mellitus, GERD, hypertension, osteoarthritis coming into the hospital with a chief complaint of dark colored stool for the past 2 days. Patient states that she noticed dark colored stool and also bright red blood from her rectum and that she could smell blood from her commode. She also complains of increased fatigue. Patient states that she was taking Coumadin for anticoagulation secondary to her history of atrial fibrillation in the past. But recently has changed to Xarelto and this is her second bottle. In the ED patient stool has been tested positive for FOBT and her hemoglobin was low at 6.3. And she has been admitted to the hospital for further workup. On 06/14/2018 - last night was called as the patient was confused and trying to get out of the bed. She was more confused and had to give her Ativan to calm her down. She has a sitter at the bedside. When the patient's urine was checked it is positive for nitrites and large leukocyte esterase , so urine cultures have been obtained and she has been started on ceftriaxone. This afternoon patient was lying in the bed, as she was agitated she received a dose of Ativan few minutes back. Patient was very confused and keeps pushing away all of us as she did not want anyone to touch her. Review of systems could not be obtained as the patient is confused. On 2017 - as per the nursing staff report patient is still confused was trying to get out of the bed. She was given a dose of Ativan last night around 4 AM. This morning patient is lying in bed doesn't appear to be in acute distress. She responded by opening her eyes on calling her name. Review of systems could not be done as the patient was confused. 06/16/2018 Patient is still confused. Patient is able to open her eyes with verbal stimuli. Appears to be in no acute distress. CT and other neurologic workup has been negative. Hemoglobin 8.4 today. No fever no chills. Urine culture showed E. coli. 06/17/2018 Patient is still confused but responding to verbal stimuli. No fever no chills. Hemoglobin is stable at 8.5. No fever no chills. No other acute overnight issues. 06/18/2018 Patient is more awake and oriented today. Able to sit in the chair. Hemoglobin is fairly stable. GI is following for possible colonoscopy. Otherwise no acute overnight issues. Complete review of systems could not be obtained from the patient Objective - Vital Signs Vital signs: Vital Signs Temp 98.0 F 06/18/18 07:00 Pulse 72 06/18/18 07:00 Resp 16 06/18/18 07:00 BP 111/67 06/18/18 07:00 Pulse Ox 98 06/18/18 07:00 Intake & Output 06/17/18 06/18/18 06/18/18 18:59 06:59 18:59 Intake Total 100 100 50 Output Total 0 0 Balance 100 100 50 Weight 54.5 kg 54.5 kg Intake: Oral 100 100 50 Output: Urine 0 0 Other: Voiding Method Incontinent Bedpan Bedpan Incontinent Incontinent # Voids 1 2 - Exam HEAD EXAM: Atraumatic normocephalic RESPIRATORY EXAM: Bilateral breath sounds are positive. Scattered rhonchi CARDIOVASCULAR EXAM: Irregularly irregular GI/ABDOMINAL EXAM: soft, normal bowel sounds. Absent: distended, tenderness, guarding, rebound, rigid EXTREMITIES EXAM: No edema clubbing or cyanosis NEUROLOGICAL EXAM: Patient is very confused and agitated, tossing and turning in the bed SKIN EXAM: Thin and fragile - Labs CBC & Chem 7: 06/17/18 08:58 06/16/18 06:13 Labs: Abnormal Lab Results - Last 24 Hours (Table) 06/17/18 06/18/18 06/18/18 Range/Units 17:11 06:58 11:50 POC Glucose (mg/dL) 231 H 130 H 250 H (75-99) mg/dL Microbiology - Last 24 Hours (Table) 06/14/18 14:30 Blood Culture - Preliminary Blood No Growth after 72 hours Assessment and Plan Assessment: Acute blood loss anemia Lower GI bleed Acute metabolic encephalopathy -most likely secondary to UTI E. 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 Peripheral neuropathy Plan: Patient has been started on ceftriaxone after obtaining blood cultures and urine cultures.. Xarelto on hold . She was given 2 unit of PRBCs hemoglobin has come up to 7.2--8.5. GI has been consulted. Monitor H&H every 12 hours and transfuse if hemoglobin less than 7. computed tomography scan of the brain was done due to confusion- no acute process noted. Currently patient mentation is much improved. Further recommendations to follow depending on the progress of the patient. Overall prognosis is guarded. Time with Patient: Greater than 30
[2018-06-19] MEDS: ACETAMINOPHEN TAB 325 MG TAB PO PRN ×2 (03:26→18:29)
[2018-06-19 07:51] LABS: Anisocytosis Slight; HCT 26.4 % (34.0-46.0); HGB 8.1 gm/dL (11.4-16.0); Hypochromasia Marked; MCH 30.9 pg (25.0-35.0); MCHC 30.5 g/dL (31.0-37.0); MCV 101.4 fL (80.0-100.0); Macrocytosis Moderate; Mean Platelet Volume 10.5; Poikilocytosis Slight; RBC 2.61 m/uL (3.80-5.40); RDW 17.5 % (11.5-15.5); WBC 6.4 k/uL (3.8-10.6)
[2018-06-19 08:04] LABS: Calcium 9.3 mg/dL (8.4-10.2)
[2018-06-19 08:14] LABS: INR 1.3 (<1.2); Prothrombin Time 12.1 sec (9.0-12.0)
[2018-06-19 08:18] LABS: Band Neutrophils % 5 %; Lymphocytes # (M) 1.92 k/uL (1.0-4.8); Monocytes # (M) 1.34 k/uL (0-1.0); Neutrophils % (M) 44 %; Nucleated Red Blood Cells 0 /100 WBC (0-0); Total Cells Counted 100
[2018-06-19 08:19] LABS: Large Platelets Present; Platelet Count 94 k/uL (150-450); Poikilocytosis (M) Present
[2018-06-19 08:21] LABS: Glucose,Whole Blood 135 mg/dL (75-99)
[2018-06-19] MEDS: INSULIN ASPART 100 UNIT/ML 1 ML 10 ML VIAL SQ SCH ×4 (09:08→22:21)
[2018-06-19] MEDS: DILTIAZEM CD 240 MG CAP.ER.24H PO SCH (09:13)
[2018-06-19] MEDS: LOSARTAN 50 MG TAB PO SCH (09:13)
[2018-06-19] MEDS: ATENOLOL 50 MG TAB PO SCH (09:13)
[2018-06-19] MEDS: PANTOPRAZOLE 40 MG/10 ML VIAL IVP SCH (09:13)
[2018-06-19] MEDS: OXYBUTYNIN 10 MG TAB.ER.24 PO SCH (09:15)
[2018-06-19 11:51] LABS: Glucose,Whole Blood 144 mg/dL (75-99)
[2018-06-19] MEDS ORDERED: fentaNYL (PF) 50 MCG/ML 2 ML AMP ONE (16:03)
[2018-06-19] MEDS ORDERED: LIDOCAINE 1% INJ 10MG/ML (20 ML MDV) ONE (16:03)
[2018-06-19] MEDS ORDERED: PROPOFOL 10 MG/ML 20 ML VIAL IV ONE (16:03)
[2018-06-19] MEDS ORDERED: LACTATED RINGERS 500 ML IV ONE (16:31)
--- NOTE | 2018-06-19 16:43 | P.PCN ---
Date of Procedure: 06/19/18 Description of Procedure: BRIEF HISTORY: Patient is a 87-year-old, pleasant, female patient who presented to the hospital with complaints of dark stool and confusion. The patient was found to be anemic with an acute fall in her hemoglobin. The patient had no further episodes of dark stools since presentation.. PROCEDURE PERFORMED: Esophagogastroduodenoscopy with cold biopsy. PREOPERATIVE DIAGNOSIS: Melena, stool positive for occult blood, anemia. IV sedation per anesthesia. PROCEDURE: After informed consent was obtained, the patient was brought into the endoscopy unit. IV sedation was administered by Anesthesia under continuous monitoring. Initially the Olympus GIF-180 video endoscope was inserted into the mouth. Esophagus intubated without any difficulty. It was gradually advanced into the stomach and duodenum and carefully examined. The bulb and the second part of the duodenum appeared normal. The scope at this time was withdrawn to the stomach, adequately insufflated with air, and upon careful examination, mucosa of the antrum, body, cardia and the fundus appeared grossly normal. Mild scattered gastritis was noted in the antrum and body which was biopsied. One small polyp was found in the body of the stomach which was easily removed with cold forceps. The scope was then withdrawn into the esophagus. The GE junction was located at 35 cm from the incisors. Patient had a small hiatal hernia The esophagus appeared normal. There were no erosions or ulcerations or any evidence of old or active bleeding seen and the patient tolerated the procedure well. IMPRESSION: 1. Mild gastritis, biopsied. 2. Small gastric polyp, removed with cold forceps. 3. Small hiatal hernia. RECOMMENDATIONS: The findings of this examination were discussed with the patient in the nursing staff. The patient is okay to restart a regular diet. She should be continued on Protonix 40 mg daily, this was switched from IV. Monitor hemoglobin and hematocrit and transfuse as needed. If further bleeding occurs either in hospital or in outpatient setting would recommend second look upper endoscopy with colonoscopy for evaluation.
[2018-06-19 17:32] LABS: Glucose,Whole Blood 139 mg/dL (75-99)
[2018-06-19] MEDS: QUEtiapine 25 MG TAB PO PRN (20:28)
[2018-06-19] MEDS: cefTRIAXone IN SWFI 1,000 MG/10 ML SYRINGE IVP SCH (20:28)
--- NOTE | 2018-06-19 20:34 | P.PN ---
Subjective Progress Note Date: 06/19/18 Principal diagnosis: GI Bleed, UTI Jacqueline was seen today in follow-up. She is awake and alert today. Less anxious and able to communicate appropriately. Planning for EGD in am per GI. Objective - Vital Signs Vital signs: Vital Signs Temp 97.8 F 06/19/18 06:14 Pulse 57 L 06/19/18 06:14 Resp 17 06/19/18 06:14 BP 119/52 06/19/18 06:14 Pulse Ox 99 06/19/18 06:14 Intake & Output 06/18/18 06/19/18 06/19/18 18:59 06:59 18:59 Intake Total 100 Output Total 0 Balance 100 Weight 54.5 kg Intake: Oral 100 Output: Urine 0 Other: Voiding Method Bedpan Bedpan Incontinent Incontinent # Voids 2 3 # Bowel Movements 0 - Exam - Constitutional General appearance: no acute distress, alert and oriented today - EENT EOMI, PERRLA dry and lesions to lips and mouth. - Neck Suppleno lymphadenopathy, trachea midline - Respiratory bilateral: CTA - Cardiovascular irregularly irregular Tachycardia - Gastrointestinal normal bowel sounds, soft - Integumentary extremities with areas of eccymosis bilateral - Neurologic no focal defects - Musculoskeletal strength equal bilaterally - Psychiatric calm cooperative and oriented - Labs CBC & Chem 7: 06/19/18 07:39 06/19/18 07:39 Labs: Abnormal Lab Results - Last 24 Hours (Table) 06/18/18 06/18/18 06/19/18 Range/Units 17:08 20:33 07:39 RBC 2.61 L (3.80-5.40) m/uL Hgb 8.1 L (11.4-16.0) gm/dL Hct 26.4 L (34.0-46.0) % MCV 101.4 H (80.0-100.0) fL MCHC 30.5 L (31.0-37.0) g/dL RDW 17.5 H (11.5-15.5) % Plt Count 94 L (150-450) k/uL Monocytes # (Manual) 1.34 H (0-1.0) k/uL PT (9.0-12.0) sec INR (<1.2) Chloride (98-107) mmol/L Carbon Dioxide (22-30) mmol/L BUN (7-17) mg/dL Creatinine (0.52-1.04) mg/dL Glucose (74-99) mg/dL POC Glucose (mg/dL) 140 H 166 H (75-99) mg/dL 06/19/18 06/19/18 06/19/18 Range/Units 07:39 07:39 08:19 RBC (3.80-5.40) m/uL Hgb (11.4-16.0) gm/dL Hct (34.0-46.0) % MCV (80.0-100.0) fL MCHC (31.0-37.0) g/dL RDW (11.5-15.5) % Plt Count (150-450) k/uL Monocytes # (Manual) (0-1.0) k/uL PT 12.1 H (9.0-12.0) sec INR 1.3 H (<1.2) Chloride 114 H (98-107) mmol/L Carbon Dioxide 20 L (22-30) mmol/L BUN 23 H (7-17) mg/dL Creatinine 1.16 H (0.52-1.04) mg/dL Glucose 127 H (74-99) mg/dL POC Glucose (mg/dL) 135 H (75-99) mg/dL 06/19/18 Range/Units 11:50 RBC (3.80-5.40) m/uL Hgb (11.4-16.0) gm/dL Hct (34.0-46.0) % MCV (80.0-100.0) fL MCHC (31.0-37.0) g/dL RDW (11.5-15.5) % Plt Count (150-450) k/uL Monocytes # (Manual) (0-1.0) k/uL PT (9.0-12.0) sec INR (<1.2) Chloride (98-107) mmol/L Carbon Dioxide (22-30) mmol/L BUN (7-17) mg/dL Creatinine (0.52-1.04) mg/dL Glucose (74-99) mg/dL POC Glucose (mg/dL) 144 H (75-99) mg/dL Microbiology - Last 24 Hours (Table) 06/14/18 14:30 Blood Culture - Preliminary Blood No Growth after 96 hours Assessment and Plan Plan: Assessment and Plan (1) Anemia due to acute blood loss Narrative/Plan: - Her hemoglobin is 8.4 today, stable - Continue to monitor daily CBC - Continue to Hold Anticoagulation with signs of bleeding and until confirmation that no active bleeding and stabilize. - Component of Iron Deficiency, as she is on antibiotics and blood cultures negative may order Parental Iron replacement, will discuss with Dr. 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 Previously platelet Counts were adequate for anticoagulation greater than 50,000. However since 2014 they have mostly been in the 30-40,000 range with intermittent levels above 50,000. As noted in the HPI, the patient has steadfastly requested to stay on anticoagulation, with full understanding of the increased risk with her platelet count, as she is more afraid of getting a recurrent stroke. Fortunately she has not had any complications so far, despite having had a few falls. Platelet counts of greater than 50,000 should also be adequate for any planned GI procedures - PLatlets are stable Current Visit: No Status: Chronic Priority: High Code(s): D69.6 - THROMBOCYTOPENIA, UNSPECIFIED SNOMED Code(s): 994060597 (3) CMML (chronic myelomonocytic leukemia) Narrative/Plan: This has followed an indolent course, which is typical. She has not required any treatment. Current Visit: No Status: Chronic Priority: Low Code(s): C93.10 - CHRONIC MYELOMONOCYTIC LEUKEMIA NOT ACHIEVE REMISSION SNOMED Code(s): 059619385 (4) Confusion - Resolved Narrative/Plan: This is new, as the pt has always been well oriented during her office visits , other than some diminished recall. Apparently this is intermittent, at night, and has happened previously with infection. - There is concern for UTI - Although with her known thrombocytopenia on anticoagulation it is resonable to further assess with CT head as she is at high risk for recurrent thrombosis and/or bleed. - CT head has been ordered and reviewed and no signs of acute bleed Current Visit: Yes Status: Acute Code(s): R41.0 - DISORIENTATION, UNSPECIFIED SNOMED Code(s): 803445548 (5) Gran Neg Bacilli UTI - Per Infectious Disease PLAN: PAtient's mental status has greatly improved, had a long discussion with her today and she understands the risks and benefits of returning to anticoagulation therapy versus witholding anticoagulation. Plan for EGD tomorrow per GI with positive stool OB
[2018-06-19 20:57] LABS: Glucose,Whole Blood 149 mg/dL (75-99)
--- NOTE | 2018-06-19 23:14 | P.PN ---
Subjective Progress Note Date: 06/19/18 Principal diagnosis: GI bleed Mrs. Bay is an 87 year old pleasant female with a past medical history of atrial fibrillation on anticoagulation since arrival, coronary artery disease, CVA/TIA, diabetes mellitus, GERD, hypertension, osteoarthritis coming into the hospital with a chief complaint of dark colored stool for the past 2 days. Patient states that she noticed dark colored stool and also bright red blood from her rectum and that she could smell blood from her commode. She also complains of increased fatigue. Patient states that she was taking Coumadin for anticoagulation secondary to her history of atrial fibrillation in the past. But recently has changed to Xarelto and this is her second bottle. In the ED patient stool has been tested positive for FOBT and her hemoglobin was low at 6.3. And she has been admitted to the hospital for further workup. On 06/14/2018 - last night was called as the patient was confused and trying to get out of the bed. She was more confused and had to give her Ativan to calm her down. She has a sitter at the bedside. When the patient's urine was checked it is positive for nitrites and large leukocyte esterase , so urine cultures have been obtained and she has been started on ceftriaxone. This afternoon patient was lying in the bed, as she was agitated she received a dose of Ativan few minutes back. Patient was very confused and keeps pushing away all of us as she did not want anyone to touch her. Review of systems could not be obtained as the patient is confused. On 2017 - as per the nursing staff report patient is still confused was trying to get out of the bed. She was given a dose of Ativan last night around 4 AM. This morning patient is lying in bed doesn't appear to be in acute distress. She responded by opening her eyes on calling her name. Review of systems could not be done as the patient was confused. 06/16/2018 Patient is still confused. Patient is able to open her eyes with verbal stimuli. Appears to be in no acute distress. CT and other neurologic workup has been negative. Hemoglobin 8.4 today. No fever no chills. Urine culture showed E. coli. 06/17/2018 Patient is still confused but responding to verbal stimuli. No fever no chills. Hemoglobin is stable at 8.5. No fever no chills. No other acute overnight issues. 06/18/2018 Patient is more awake and oriented today. Able to sit in the chair. Hemoglobin is fairly stable. GI is following for possible colonoscopy. Otherwise no acute overnight issues. 06/19/2018 Patient denied any complaints of chest pain or shortness of breath. Able to ambulate with a wheeled walker. Patient is more awake and oriented. Otherwise patient wants to be discharged. Patient underwent EGD today evening. IMPRESSION: 1. Mild gastritis, biopsied. 2. Small gastric polyp, removed with cold forceps. 3. Small hiatal hernia. Patient be continued on PPI. Anticipate to be discharged to rehab tomorrow a.m. All other review of systems negative as above. Objective - Vital Signs Vital signs: Vital Signs Temp 97.8 F 06/19/18 06:14 Pulse 57 L 06/19/18 06:14 Resp 17 06/19/18 06:14 BP 119/52 06/19/18 06:14 Pulse Ox 99 06/19/18 06:14 Intake & Output 06/18/18 06/19/18 06/19/18 18:59 06:59 18:59 Intake Total 100 Output Total 0 Balance 100 Weight 54.5 kg Intake: Oral 100 Output: Urine 0 Other: Voiding Method Bedpan Bedpan Incontinent Incontinent Incontinent # Voids 2 3 # Bowel Movements 0 - Exam HEAD EXAM: Atraumatic normocephalic RESPIRATORY EXAM: Bilateral breath sounds are positive. Clear to auscultation bilaterally. CARDIOVASCULAR EXAM: Irregularly irregular. S1-S2 heard GI/ABDOMINAL EXAM: soft, normal bowel sounds. Absent: distended, tenderness, guarding, rebound, rigid EXTREMITIES EXAM: No edema clubbing or cyanosis NEUROLOGICAL EXAM: Patient is awake and oriented 2, no focal neurological deficit. SKIN EXAM: Thin and fragile - Labs CBC & Chem 7: 06/19/18 07:39 06/19/18 07:39 Labs: Abnormal Lab Results - Last 24 Hours (Table) 06/18/18 06/18/18 06/19/18 Range/Units 17:08 20:33 07:39 RBC 2.61 L (3.80-5.40) m/uL Hgb 8.1 L (11.4-16.0) gm/dL Hct 26.4 L (34.0-46.0) % MCV 101.4 H (80.0-100.0) fL MCHC 30.5 L (31.0-37.0) g/dL RDW 17.5 H (11.5-15.5) % Plt Count 94 L (150-450) k/uL Monocytes # (Manual) 1.34 H (0-1.0) k/uL PT (9.0-12.0) sec INR (<1.2) Chloride (98-107) mmol/L Carbon Dioxide (22-30) mmol/L BUN (7-17) mg/dL Creatinine (0.52-1.04) mg/dL Glucose (74-99) mg/dL POC Glucose (mg/dL) 140 H 166 H (75-99) mg/dL 06/19/18 06/19/18 06/19/18 Range/Units 07:39 07:39 08:19 RBC (3.80-5.40) m/uL Hgb (11.4-16.0) gm/dL Hct (34.0-46.0) % MCV (80.0-100.0) fL MCHC (31.0-37.0) g/dL RDW (11.5-15.5) % Plt Count (150-450) k/uL Monocytes # (Manual) (0-1.0) k/uL PT 12.1 H (9.0-12.0) sec INR 1.3 H (<1.2) Chloride 114 H (98-107) mmol/L Carbon Dioxide 20 L (22-30) mmol/L BUN 23 H (7-17) mg/dL Creatinine 1.16 H (0.52-1.04) mg/dL Glucose 127 H (74-99) mg/dL POC Glucose (mg/dL) 135 H (75-99) mg/dL 06/19/18 Range/Units 11:50 RBC (3.80-5.40) m/uL Hgb (11.4-16.0) gm/dL Hct (34.0-46.0) % MCV (80.0-100.0) fL MCHC (31.0-37.0) g/dL RDW (11.5-15.5) % Plt Count (150-450) k/uL Monocytes # (Manual) (0-1.0) k/uL PT (9.0-12.0) sec INR (<1.2) Chloride (98-107) mmol/L Carbon Dioxide (22-30) mmol/L BUN (7-17) mg/dL Creatinine (0.52-1.04) mg/dL Glucose (74-99) mg/dL POC Glucose (mg/dL) 144 H (75-99) mg/dL Microbiology - Last 24 Hours (Table) 06/14/18 14:30 Blood Culture - Preliminary Blood No Growth after 96 hours Assessment and Plan Assessment: Acute blood loss anemia. Hemoglobin fairly stable. Lower GI bleed Acute metabolic encephalopathy -most likely secondary to UTI E. 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 Peripheral neuropathy Plan: Patient has been started on ceftriaxone after obtaining blood cultures and urine cultures.. Xarelto on hold . She was given 2 unit of PRBCs hemoglobin has come up to 7.2--8.5--8.2. Monitor H&H every 12 hours and transfuse if hemoglobin less than 7. computed tomography scan of the brain was done due to confusion- no acute process noted. Currently patient mentation is much improved. Patient underwent EGD today. Further recommendations to follow depending on the progress of the patient. Overall prognosis is guarded. Time with Patient: Greater than 30
[2018-06-20] MEDS ORDERED: PANTOPRAZOLE 40 MG TABLET PO SCH (07:30)
[2018-06-20 07:36] LABS: Glucose,Whole Blood 137 mg/dL (75-99)
[2018-06-20 07:55] VITALS: BP 117/64; PULSE 74; TEMP 97.6
[2018-06-20] MEDS: INSULIN ASPART 100 UNIT/ML 1 ML 10 ML VIAL SQ SCH ×2 (08:07→12:35)
[2018-06-20] MEDS: LOSARTAN 50 MG TAB PO SCH (09:30)
[2018-06-20] MEDS: ATENOLOL 50 MG TAB PO SCH (09:30)
[2018-06-20] MEDS: DILTIAZEM CD 240 MG CAP.ER.24H PO SCH (09:30)
[2018-06-20] MEDS: OXYBUTYNIN 10 MG TAB.ER.24 PO SCH (09:30)
--- NOTE | 2018-06-20 11:24 | PN ---
PROGRESS NOTE DATE OF SERVICE: 06/20/2018 Patient is an 87-year-old pleasant white female who was admitted to the hospital a week ago for urinary tract infection/altered mental status, confusion. She has prior history of coronary artery disease, CVA in the past, A fib on anticoagulation. While in the hospital she developed black tarry stools of 2 days duration and drop in hemoglobin. She underwent an upper endoscopy by Dr. Dugan yesterday which revealed mild gastritis and a small gastric polyp that was biopsied. The patient this morning is doing better. She denies any further episodes of bleeding. No nausea, vomiting. She did complain of some abdominal pain mostly in the epigastric area. Tolerating diet reasonably well. PHYSICAL EXAMINATION: On physical examination, she appears comfortable. No apparent distress. Vital signs are stable. Blood pressure is 136/46, pulse rate 58, temperature 98. HEENT EXAMINATION: Unremarkable. Conjunctivae pink. Sclerae anicteric. Oral cavity, no lesions. NECK: No JVD or lymph node enlargement. CHEST: Clear to auscultation. HEART: Regular rate and rhythm. ABDOMEN: Soft with diffuse tenderness mostly in the epigastric area. No rebound or rigidity. Bowel sounds are positive. EXTREMITIES: No pedal edema. SKIN: No rashes. NEURO: She is alert and oriented x3. No focal deficits. LABS: WBC 6.4, hemoglobin 8.1, platelets 94. INR 1.3. Basic metabolic panel is within normal limits. BUN is 23, creatinine 1.16. IMPRESSION: 1. Black tarry stools of 2 days duration with drop in hemoglobin. Last hemoglobin yesterday was 8.1 g/dL. She underwent upper endoscopy by Dr. Dugan yesterday which showed mild gastritis, small hiatal hernia and small gastric polyp that was biopsied. Her hemoglobin is stable, no further bleeding. 2. Urinary tract infection on broad-spectrum antibiotics, doing well. 3. History of atrial fibrillation, presently anticoagulation on hold. 4. Chronic kidney disease stage 3. RECOMMENDATIONS: 1. Continue with Protonix 40 mg daily. 2. Advance diet as tolerated. 3. Since her bleeding has resolved, we will sign off at this time. Please call us if needed. Thank you for this consultation. MMODL / IJN: [id number] /
[2018-06-20 11:39] LABS: Anisocytosis Slight; HCT 28.4 % (34.0-46.0); HGB 8.5 gm/dL (11.4-16.0); Hypochromasia Marked; MCH 29.7 pg (25.0-35.0); MCHC 29.9 g/dL (31.0-37.0); MCV 99.4 fL (80.0-100.0); Macrocytosis Slight; Mean Platelet Volume 11.4; Poikilocytosis Slight; RBC 2.86 m/uL (3.80-5.40); RDW 17.1 % (11.5-15.5); WBC 5.6 k/uL (3.8-10.6)
[2018-06-20 11:40] LABS: Platelet Count 98 k/uL (150-450)
[2018-06-20 12:28] LABS: Band Neutrophils % 1 %; Eosinophils # (M) 0.06 k/uL (0-0.7); Lymphocytes # (M) 0.45 k/uL (1.0-4.8); Monocytes # (M) 1.68 k/uL (0-1.0); Neutrophils % (M) 61 %; Nucleated Red Blood Cells 0 /100 WBC (0-0); Total Cells Counted 200
[2018-06-20 12:29] LABS: Large Platelets Present
[2018-06-20 12:57] LABS: Glucose,Whole Blood 135 mg/dL (75-99)
--- NOTE | 2018-06-20 13:38 | P.DS ---
Providers Date of admission: 06/13/18 11:32 Attending physician: Yris Mckinnon Consults: 06/13/18 11:32 Consult Physician Urgent Consulting Provider: Rudy Dugan Consult Reason/Comments: Lower GI hemorrhage Do you want consulting provider notified?: Yes 06/13/18 11:48 Consult Physician Urgent Consulting Provider: Guille Vences Consult Reason/Comments: Hematology Do you want consulting provider notified?: Yes Primary care physician: [facility] Course: Mrs. Bay is an 87 year old pleasant female with a past medical history of atrial fibrillation on anticoagulation since arrival, coronary artery disease, CVA/TIA, diabetes mellitus, GERD, hypertension, osteoarthritis coming into the hospital with a chief complaint of dark colored stool for the past 2 days. Patient states that she noticed dark colored stool and also bright red blood from her rectum and that she could smell blood from her commode. She also complains of increased fatigue. Patient states that she was taking Coumadin for anticoagulation secondary to her history of atrial fibrillation in the past. But recently has changed to Xarelto and this is her second bottle. In the ED patient stool has been tested positive for FOBT and her hemoglobin was low at 6.3. And she has been admitted to the hospital for further workup. On 06/14/2018 - last night was called as the patient was confused and trying to get out of the bed. She was more confused and had to give her Ativan to calm her down. She has a sitter at the bedside. When the patient's urine was checked it is positive for nitrites and large leukocyte esterase , so urine cultures have been obtained and she has been started on ceftriaxone. This afternoon patient was lying in the bed, as she was agitated she received a dose of Ativan few minutes back. Patient was very confused and keeps pushing away all of us as she did not want anyone to touch her. Review of systems could not be obtained as the patient is confused. On 2017 - as per the nursing staff report patient is still confused was trying to get out of the bed. She was given a dose of Ativan last night around 4 AM. This morning patient is lying in bed doesn't appear to be in acute distress. She responded by opening her eyes on calling her name. Review of systems could not be done as the patient was confused. 06/16/2018 Patient is still confused. Patient is able to open her eyes with verbal stimuli. Appears to be in no acute distress. CT and other neurologic workup has been negative. Hemoglobin 8.4 today. No fever no chills. Urine culture showed E. coli. 06/17/2018 Patient is still confused but responding to verbal stimuli. No fever no chills. Hemoglobin is stable at 8.5. No fever no chills. No other acute overnight issues. 06/18/2018 Patient is more awake and oriented today. Able to sit in the chair. Hemoglobin is fairly stable. GI is following for possible colonoscopy. Otherwise no acute overnight issues. 06/19/2018 Patient denied any complaints of chest pain or shortness of breath. Able to ambulate with a wheeled walker. Patient is more awake and oriented. Otherwise patient wants to be discharged. Patient underwent EGD today evening. IMPRESSION: 1. Mild gastritis, biopsied. 2. Small gastric polyp, removed with cold forceps. 3. Small hiatal hernia. Patient be continued on PPI. Anticipate to be discharged to rehab tomorrow a.m. 06/20/2018 Patient doesn't have any more GI bleed patient is completely confused which is her baseline patient appears to have advanced dementia. Patient is on anticoagulation for atrial fibrillation. Considering her advanced dementia unsure whether patient will be a candidate for anti-correlation my opinion patient shouldn't be on any anticoagulation not because of the GI bleed but because of her age advanced dementia. This need to be discussed by the physician at the long-term with the family and they need to understand the risk of discontinue additional for anticoagulation. Patient had mild gastritis no more GI bleed because of which gastroenterology recommended that she can be resumed on anticoagulation if at all necessary because of which I'm resuming her on anticoagulation. Patient has poor renal function appears to have chronic diastolic dysfunction because of poor renal function and cutting down her Lasix, losartan can be discontinued if it's not necessary down the line. Since patient is not well-known to me and not discontinued and his medications. Patient is mildly bradycardic because of which I'm cutting down the atenolol to 50 daily PHYSICAL EXAMINATION: GENERAL: The patient is alert and oriented x3, not in any acute distress. Well developed, well nourished. HEENT: Pupils are round and equally reacting to light. EOMI. No scleral icterus. No conjunctival pallor. Normocephalic, atraumatic. No pharyngeal erythema. No thyromegaly. CARDIOVASCULAR: S1 and S2 present. No murmurs, rubs, or gallops. PULMONARY: Chest is clear to auscultation, no wheezing or crackles. ABDOMEN: Soft, nontender, nondistended, normoactive bowel sounds. No palpable organomegaly. MUSCULOSKELETAL: No joint swelling or deformity. EXTREMITIES: No cyanosis, clubbing, or pedal edema. NEUROLOGICAL: Gross neurological examination did not reveal any focal deficits. SKIN: No rashes. Assessment and Plan Assessment: Acute blood loss anemia. Hemoglobin fairly stable. Lower GI bleed Acute metabolic encephalopathy -most likely secondary to UTI E. coli pansensitive patient will be discharged on Ceftin as fluoroquinolones can make her confused E. 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 Peripheral neuropathy -Probable chronic diastolic dysfunction without any acute exacerbation Plan - Discharge Summary Discharge Rx Participant: No New Discharge Prescriptions: New Omeprazole [PriLOSEC] 40 mg PO AC-BRKFST #30 capsule. Cefuroxime Axetil [Ceftin] 500 mg PO BID #10 tab Continue Oxybutynin Chloride [Oxybutynin Chloride ER] 10 mg PO DAILY Docusate [Colace] 100 mg PO DAILY #30 capsule Diltiazem HCl [Cartia Xt] 240 mg PO DAILY Glimepiride [Amaryl] 1 mg PO AC-BID metFORMIN HCL 500 mg PO DAILY Rivaroxaban [Xarelto] 15 mg PO DAILY Changed Atenolol [Tenormin] 50 mg PO DAILY #0 Furosemide [Lasix] 20 mg PO DAILY PRN #0 PRN Reason: Edema Losartan [Cozaar] 25 mg PO DAILY #0 Discharge Medication List Oxybutynin Chloride [Oxybutynin Chloride ER] 10 mg PO DAILY 05/29/15 [History] Docusate [Colace] 100 mg PO DAILY #30 capsule 09/02/15 [Rx] Diltiazem HCl [Cartia Xt] 240 mg PO DAILY 09/19/15 [History] Glimepiride [Amaryl] 1 mg PO AC-BID 10/18/15 [History] metFORMIN HCL 500 mg PO DAILY 07/22/16 [History] Rivaroxaban [Xarelto] 15 mg PO DAILY 06/13/18 [History] Atenolol [Tenormin] 50 mg PO DAILY #0 06/20/18 [Rx] Cefuroxime Axetil [Ceftin] 500 mg PO BID #10 tab 06/20/18 [Rx] Furosemide [Lasix] 20 mg PO DAILY PRN #0 06/20/18 [Rx] Losartan [Cozaar] 25 mg PO DAILY #0 06/20/18 [Rx] Omeprazole [PriLOSEC] 40 mg PO AC-BRKFST #30 capsule. 06/20/18 [Rx] Follow up Appointment(s)/Referral(s): Alfred Conti MD [STAFF PHYSICIAN] - 1-2 Days Paco Martinez III, MD [Primary Care Provider] - 1-2 days Discharge Disposition: HOME WITH HOME HEALTH SERVICES
[2018-06-20 15:36] VITALS: RESP 16
--- NOTE | 2018-06-20 18:05 | P.PN ---
Subjective Progress Note Date: 06/20/18 Principal diagnosis: GI Bleed, UTI Jacqueline seen in follow-up this am, she is completely confused and anxious again this morning. This is not her baseline, although this has happened in past with infections, especially UTI. The fact she was alert and oriented less than 24 hours ago and now complete disorientation is concerning. EGD was completed without evidence of active bleeding. Dr Vences is very familiar with patient and family and we see her for close follow-ups related to her anticoagualtion therapy. She is a very high risk for THrombotic event. Previously off AC therapy for a short time and she experienced event. Will await her mental status to improve and rec neurology to consult to further review this case. If she is discharged prior to re-orientation we will follow-up in office for re- assessment. Objective - Vital Signs Vital signs: Vital Signs Temp 97.6 F 06/20/18 07:00 Pulse 74 06/20/18 07:00 Resp 16 06/20/18 15:35 BP 117/64 06/20/18 07:00 Pulse Ox 99 06/20/18 07:00 Intake & Output 06/19/18 06/20/18 06/20/18 18:59 06:59 18:59 Intake Total 150 480 Balance 150 480 Intake: IV 150 Oral 480 Other: Voiding Method Incontinent Incontinent Incontinent # Voids 3 1 1 # Bowel Movements 0 1 - Exam - Constitutional General appearance: no acute distress, Irrate and completely disoriented today - EENT EOMI, PERRLA dry and lesions to lips and mouth. - Neck Supp[place]o lymphadenopathy, trachea midline - Respiratory bilateral: CTA - Cardiovascular irregularly irregular Tachycardia - Gastrointestinal normal bowel sounds, soft - Integumentary extremities with areas of eccymosis bilateral - Labs CBC & Chem 7: 06/20/18 11:05 06/19/18 07:39 Labs: Abnormal Lab Results - Last 24 Hours (Table) 06/19/18 06/20/18 06/20/18 Range/Units 20:56 07:26 11:05 RBC 2.86 L (3.80-5.40) m/uL Hgb 8.5 L (11.4-16.0) gm/dL Hct 28.4 L (34.0-46.0) % MCHC 29.9 L (31.0-37.0) g/dL RDW 17.1 H (11.5-15.5) % Plt Count 98 L (150-450) k/uL Lymphocytes # (Manual) 0.45 L (1.0-4.8) k/uL Monocytes # (Manual) 1.68 H (0-1.0) k/uL POC Glucose (mg/dL) 149 H 137 H (75-99) mg/dL 06/20/18 Range/Units 12:36 RBC (3.80-5.40) m/uL Hgb (11.4-16.0) gm/dL Hct (34.0-46.0) % MCHC (31.0-37.0) g/dL RDW (11.5-15.5) % Plt Count (150-450) k/uL Lymphocytes # (Manual) (1.0-4.8) k/uL Monocytes # (Manual) (0-1.0) k/uL POC Glucose (mg/dL) 135 H (75-99) mg/dL Microbiology - Last 24 Hours (Table) 06/14/18 14:30 Blood Culture - Final Blood No Growth after 144 hours Assessment and Plan Plan: Assessment and Plan (1) Anemia due to acute blood loss Narrative/Plan: - Her hemoglobin is 8.4 today, stable - Continue to monitor daily CBC - Continue to Hold Anticoagulation with signs of bleeding and until confirmation that no active bleeding and stabilize. - Component of Iron Deficiency, as she is on antibiotics and blood cultures negative may order Parental Iron replacement, will discuss with Dr. 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 Previously platelet Counts were adequate for anticoagulation greater than 50,000. However since 2014 they have mostly been in the 30-40,000 range with intermittent levels above 50,000. As noted in the HPI, the patient has steadfastly requested to stay on anticoagulation, with full understanding of the increased risk with her platelet count, as she is more afraid of getting a recurrent stroke. Fortunately she has not had any complications so far, despite having had a few falls. Platelet counts of greater than 50,000 should also be adequate for any planned GI procedures - PLatlets are stable Current Visit: No Status: Chronic Priority: High Code(s): D69.6 - THROMBOCYTOPENIA, UNSPECIFIED SNOMED Code(s): 101799129 (3) CMML (chronic myelomonocytic leukemia) Narrative/Plan: This has followed an indolent course, which is typical. She has not required any treatment. Current Visit: No Status: Chronic Priority: Low Code(s): C93.10 - CHRONIC MYELOMONOCYTIC LEUKEMIA NOT ACHIEVE REMISSION SNOMED Code(s): 702105630 (4) Confusion - Resolved Narrative/Plan: This is new, as the pt has always been well oriented during her office visits , other than some diminished recall. Apparently this is intermittent, at night, and has happened previously with infection. - There is concern for UTI - Although with her known thrombocytopenia on anticoagulation it is resonable to further assess with CT head as she is at high risk for recurrent thrombosis and/or bleed. - CT head has been ordered and reviewed and no signs of acute bleed Current Visit: Yes Status: Acute Code(s): R41.0 - DISORIENTATION, UNSPECIFIED SNOMED Code(s): 031917789 (5) Gran Neg Bacilli UTI - Per Infectious Disease PLAN: EGD does not show active bleeding, although her orientation has again decreased to when she was admitted. COncern for other etiology we recommend further consultation with neurology and/or geriatric psychiatry. With her orientation at this time the risk of bleeding from AC therapy to too great. will continue to hold off on AC therapy until patient mental status can be determined. Unable to consider this her baseline mentation as she is seen frequently in office and has always presented fully alert and oriented. Labile mental status evidenced by yesterday was alert, calm and cooroperative. Continue to monitor closely.
== END 2018-06-20 15:58 | disposition home health service (06) | DRG 377 ==
LOC: EC 08:56 → 6SEL 11:32 → 4MS4W 06-16 21:27
PROVIDERS: ADMIT Internal Medicine; ATTEND Internal Medicine
PROC: 30233N1 Transfusion of Nonautologous Red Blood Cells into Peripheral Vein, Percutaneous Approach (ICD-10-PCS; 2018-06-13)
PROC: 0DB68ZZ Excision of Stomach, Via Natural or Artificial Opening Endoscopic (ICD-10-PCS; 2018-06-19)
PROC: 0DB78ZX Excision of Stomach, Pylorus, Via Natural or Artificial Opening Endoscopic, Diagnostic (ICD-10-PCS; principal; 2018-06-19 08:40)
DX: K29.71 Gastritis, unspecified, with bleeding (principal); G93.41 Metabolic encephalopathy; D62 Acute posthemorrhagic anemia; N39.0 Urinary tract infection, site not specified; C93.10 Chronic myelomonocytic leukemia not having achieved remission; I25.10 Atherosclerotic heart disease of native coronary artery without angina pectoris; K21.9 Gastro-esophageal reflux disease without esophagitis; M19.90 Unspecified osteoarthritis, unspecified site; I48.2 Chronic atrial fibrillation; K31.7 Polyp of stomach and duodenum; D69.6 Thrombocytopenia, unspecified; E11.42 Type 2 diabetes mellitus with diabetic polyneuropathy; F03.90 Unspecified dementia, unspecified severity, without behavioral disturbance, psychotic disturbance, mood disturbance, and anxiety; K44.9 Diaphragmatic hernia without obstruction or gangrene; B96.20 Unspecified Escherichia coli [E. coli] as the cause of diseases classified elsewhere; E11.22 Type 2 diabetes mellitus with diabetic chronic kidney disease; I12.9 Hypertensive chronic kidney disease with stage 1 through stage 4 chronic kidney disease, or unspecified chronic kidney disease; N18.3 Chronic kidney disease, stage 3 (moderate); Z96.653 Presence of artificial knee joint, bilateral; G89.29 Other chronic pain; M54.5 Low back pain; Z79.01 Long term (current) use of anticoagulants; Z86.73 Personal history of transient ischemic attack (TIA), and cerebral infarction without residual deficits; Z95.5 Presence of coronary angioplasty implant and graft; Z90.49 Acquired absence of other specified parts of digestive tract; Z95.0 Presence of cardiac pacemaker; Z82.49 Family history of ischemic heart disease and other diseases of the circulatory system; Z79.84 Long term (current) use of oral hypoglycemic drugs; Z79.899 Other long term (current) drug therapy; Z88.0 Allergy status to penicillin; Z88.8 Allergy status to other drugs, medicaments and biological substances; I25.2 Old myocardial infarction
CPT/HCPCS: 36415; 43239; 70450; 74176; 80048; 80053; 81001; 82272; 82550; 82553; 82728; 83036; 83540; 83550; 83605; 84484; 85025; 85027; 85610; 85730; 86850; 86900; 86901; 86920; 87040; 87077; 87086; 87186; 88305; 93005; 99285

== ENCOUNTER 2018-09-25 12:00 | Inpatient (IN) | payer MEDICARE, BC ==
[2018-09-25] MEDS ORDERED: ASPIRIN 81 MG PO STA (12:21)
[2018-09-25] MEDS ORDERED: NITROGLYCERIN OINT 1 INCH/GM PACKET TOPICAL STA (12:21)
--- NOTE | 2018-09-25 12:26 | ED ---
General Adult HPI - General Chief complaint: Chest Pain Stated complaint: Chest pain Time Seen by Provider: 09/25/18 12:00 Source: EMS, RN notes reviewed Mode of arrival: EMS Limitations: no limitations - History of Present Illness Initial comments: This is a 88-year-old female presents emergency Department complaining of chest pain. Patient states it started about 10:00 this morning but she didn't tell anybody initially. Patient states the pain radiates up into her neck. Patient states she was mildly short of breath. Patient denies any diaphoretic episodes. Patient denies any nausea. Patient denies any abdominal pain. Patient denies any recent fever chills or cough per patient denies headache patient denies numbness weakness. Patient received 2 nitroglycerin prior to arrival and she states it did help the pain. Patient also received aspirin prior to arrival. Patient states both her legs normally swollen and he continued to be and there is no larger today than they have been. The child looks always tender to touch as well. - Related Data Home Medications Medication Instructions Recorded Confirmed Oxybutynin Chloride [Oxybutynin 10 mg PO DAILY 05/29/15 09/25/18 Chloride ER] Diltiazem HCl [Cartia Xt] 240 mg PO DAILY 09/19/15 09/25/18 Glimepiride [Amaryl] 1 mg PO DAILY 10/18/15 09/25/18 metFORMIN HCL 500 mg PO DAILY 07/22/16 09/25/18 Rivaroxaban [Xarelto] 15 mg PO DAILY@1700 06/13/18 09/25/18 Acetaminophen [Tylenol 8 Hour] 650 mg PO Q4H PRN 06/26/18 09/25/18 Bisacodyl [Dulcolax] 10 mg RECTAL DAILY PRN 06/26/18 09/25/18 Dorzolamide HCl/Pf [Dorzolamide 2% 1 drop BOTH EYES BID 06/26/18 09/25/18 Eye Drop] Ferrous Sulfate [Feosol] 325 mg PO BID@0800,1700 06/26/18 09/25/18 Furosemide [Lasix] 20 mg PO BID@0800,1700 06/26/18 09/25/18 Latanoprost [Xalatan 0.005%] 1 drop BOTH EYES DAILY@1200 06/26/18 09/25/18 Magnesium Hydroxide [Milk of 2,400 mg PO DAILY PRN 06/26/18 09/25/18 Magnesia] Na Phos,M-B/Na Phos,Di-Ba [Fleet 133 ml RECTAL DAILY PRN 06/26/18 09/25/18 Adult] Previous Rx's Medication Instructions Recorded Docusate [Colace] 100 mg PO DAILY #30 capsule 09/02/15 Atenolol [Tenormin] 50 mg PO DAILY #0 06/20/18 Omeprazole [PriLOSEC] 40 mg PO AC-BRKFST #30 capsule. 06/20/18 Allergies Allergy/AdvReac Type Severity Reaction Status Date / Time Penicillins Allergy Unknown Unknown Verified 09/25/18 12:22 Childhood zolpidem tartrate AdvReac Confusion Verified 09/25/18 12:22 [From Jennifer] Review of Systems ROS Statement: Those systems with pertinent positive or pertinent negative responses have been documented in the HPI. ROS Other: All systems not noted in ROS Statement are negative. Past Medical History Past Medical History: Atrial Fibrillation, Coronary Artery Disease (CAD), Cancer , Chest Pain / Angina, CVA/TIA, Diabetes Mellitus, GERD/Reflux, Hypertension, Myocardial Infarction ([place]), Osteoarthritis (OA), Pneumonia Additional Past Medical History / Comment(s): chronic back pain, pt stated has had 3 mi's not sure of dates, murmur, glaucoma R eye, rt eye macular degeneration, R eye poor vision, colitis when younger, chronic thrombocytopenia , chronic myelomonocytic leukemia, iron deficient anemia, DIVERTICULITIS. 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 Last Myocardial Infarction Date:: unk History of Any Multi-Drug Resistant Organisms: None Reported Past Surgical History: Appendectomy, Back Surgery, Cholecystectomy, Heart Catheterization With Stent, Pacemaker Additional Past Surgical History / Comment(s): clark. cataract removal, bilateral knee replacement, heart stents- last in 2002, pacemaker [id number], back surgery for spinal stenosis, hemorroidectomy, colonoscopy-2012 normal. Past Anesthesia/Blood Transfusion Reactions: No Reported Reaction Additional Past Anesthesia/Blood Transfusion Reaction / Comment(s): Pt states she has received blood in past without reaction. Date of Last Stent Placement:: 2002 Type of Cardiac Device: Permanent Pacemaker Device Placement Date:: 2011 Past Psychological History: No Psychological Hx Reported Smoking Status: Never smoker - Past Family History Father Family Medical History: Cancer Additional Family Medical History / Comment(s): at age 80- cardiac Mother Family Medical History: Cancer, Coronary Artery Disease (CAD), Myocardial Infarction ([place]) Additional Family Medical History / Comment(s): age 59 in [facility] General Exam - General Exam Comments Initial Comments: GENERAL: Patient is well-developed and well-nourished. Patient is nontoxic and well- hydrated and is in mild distress. ENT: Neck is soft and supple. No significant lymphadenopathy is noted. Oropharynx is clear. Moist mucous membranes. Neck has full range of motion without eliciting any pain. EYES: The sclera were anicteric and conjunctiva were pink and moist. Extraocular movements were intact and pupils were equal round and reactive to light. Eyelids were unremarkable. PULMONARY: Unlabored respirations. Good breath sounds bilaterally. No audible rales rhonchi or wheezing was noted. CARDIOVASCULAR: There is a regular rate and rhythm without any murmurs gallops or rubs. ABDOMEN: Soft and nontender with normal bowel sounds. No palpable organomegaly was noted. There is no palpable pulsatile mass. SKIN: Skin is clear with no lesions or rashes and otherwise unremarkable. NEUROLOGIC: Patient is alert and oriented x3. Cranial nerves II through XII are grossly intact. Motor and sensory are also intact. Normal speech, volume and content. Symmetrical smile. MUSCULOSKELETAL: Normal extremities with adequate strength and full range of motion. 1+ edema bilaterally slightly more on the left than the right LYMPHATICS: No significant lymphadenopathy is noted PSYCHIATRIC: Normal psychiatric evaluation. Normal interpersonal interactions appears functionally intact in deals appropriately with others. No signs of depression. No signs of anxiety. Limitations: no limitations Course Vital Signs 09/25/18 09/25/18 12:02 12:08 Temperature 98.0 F Pulse Rate 63 Pulse Rate [ 62 Bilateral Supine Pulse Oximetery] Respiratory 16 Rate Blood Pressure 125/67 O2 Sat by Pulse 99 Oximetry Medical Decision Making - Medical Decision Making EKG shows ventricular paced rhythm at 62 bpm QRS is 176 QT interval is 494 QTC is 501 per patient's EKG shows no ST segment elevation or depression or T wave abnormalities are noted. Chest x-ray shows no acute abnormality. Patient is already on Xarelto so I will not start her on heparin for unstable angina. I spoke with Dr. BURNS agreed to admit the patient admitted the patient wrote admitting orders and consult cardiology. I continued Nitropaste and aspirin on the floor. - Lab Data Result diagrams: 09/25/18 12:28 09/25/18 12:28 Lab Results 09/25/18 09/25/18 09/25/18 Range/Units 12:28 12: 12:28 WBC 4.3 (3.8-10.6) k/uL RBC 3.55 L (3.80-5.40) m/uL Hgb 11.0 L (11.4-16.0) gm/dL Hct 36.3 (34.0-46.0) % MCV 102.4 H (80.0-100.0) fL MCH 31.1 (25.0-35.0) pg MCHC 30.3 L (31.0-37.0) g/dL RDW 14.9 (11.5-15.5) % Plt Count 62 L (150-450) k/uL Neutrophils % (Manual) 68 % Lymphocytes % (Manual) 15 % Monocytes % (Manual) 15 % Eosinophils % (Manual) 2 % Neutrophils # (Manual) 2.92 (1.3-7.7) k/uL Lymphocytes # (Manual) 0.65 L (1.0-4.8) k/uL Monocytes # (Manual) 0.65 (0-1.0) k/uL Eosinophils # (Manual) 0.09 (0-0.7) k/uL Nucleated RBCs 0 (0-0) /100 WBC Manual Slide Review Performed Toxic Vacuolation Present Hypochromasia Slight Macrocytosis Slight PT (9.0-12.0) sec INR (<1.2) APTT (22.0-30.0) sec Sodium 142 (137-145) mmol/L Potassium 4.6 (3.5-5.1) mmol/L Chloride 108 H (98-107) mmol/L Carbon Dioxide 25 (22-30) mmol/L Anion Gap 9 mmol/L BUN 27 H (7-17) mg/dL Creatinine 0.88 (0.52-1.04) mg/dL Est GFR (CKD-EPI)AfAm 68 (>60 ml/min/1.73 sqM) Est GFR (CKD-EPI)NonAf 59 (>60 ml/min/1.73 sqM) Glucose 85 (74-99) mg/dL Calcium 9.7 (8.4-10.2) mg/dL Magnesium 1.8 (1.6-2.3) mg/dL Total Bilirubin 0.6 (0.2-1.3) mg/dL AST 34 (14-36) U/L ALT 16 (9-52) U/L Alkaline Phosphatase 100 (38-126) U/L Total Creatine Kinase 40 (30-135) U/L CK-MB (CK-2) 0.5 (0.0-2.4) ng/mL CK-MB (CK-2) Rel Index 1.3 Troponin I 0.014 (0.000-0.034) ng/mL Total Protein 7.3 (6.3-8.2) g/dL Albumin 3.9 (3.5-5.0) g/dL 09/25/18 Range/Units 12:28 WBC (3.8-10.6) k/uL RBC (3.80-5.40) m/uL Hgb (11.4-16.0) gm/dL Hct (34.0-46.0) % MCV (80.0-100.0) fL MCH (25.0-35.0) pg MCHC (31.0-37.0) g/dL RDW (11.5-15.5) % Plt Count (150-450) k/uL Neutrophils % (Manual) % Lymphocytes % (Manual) % Monocytes % (Manual) % Eosinophils % (Manual) % Neutrophils # (Manual) (1.3-7.7) k/uL Lymphocytes # (Manual) (1.0-4.8) k/uL Monocytes # (Manual) (0-1.0) k/uL Eosinophils # (Manual) (0-0.7) k/uL Nucleated RBCs (0-0) /100 WBC Manual Slide Review Toxic Vacuolation Hypochromasia Macrocytosis PT 13.4 H (9.0-12.0) sec INR 1.3 H (<1.2) APTT 27.6 (22.0-30.0) sec Sodium (137-145) mmol/L Potassium (3.5-5.1) mmol/L Chloride (98-107) mmol/L Carbon Dioxide (22-30) mmol/L Anion Gap mmol/L BUN (7-17) mg/dL Creatinine (0.52-1.04) mg/dL Est GFR (CKD-EPI)AfAm (>60 ml/min/1.73 sqM) Est GFR (CKD-EPI)NonAf (>60 ml/min/1.73 sqM) Glucose (74-99) mg/dL Calcium (8.4-10.2) mg/dL Magnesium (1.6-2.3) mg/dL Total Bilirubin (0.2-1.3) mg/dL AST (14-36) U/L ALT (9-52) U/L Alkaline Phosphatase (38-126) U/L Total Creatine Kinase (30-135) U/L CK-MB (CK-2) (0.0-2.4) ng/mL CK-MB (CK-2) Rel Index Troponin I (0.000-0.034) ng/mL Total Protein (6.3-8.2) g/dL Albumin (3.5-5.0) g/dL Disposition Clinical Impression: Unstable angina pectoris Disposition: ADMITTED IP TO THIS [facility] Referrals: Alfred Conti MD [Primary Care Provider] - 1-2 days Time of Disposition: 14:07
[2018-09-25 12:48] LABS: HCT 36.3 % (34.0-46.0); Hypochromasia Slight; MCH 31.1 pg (25.0-35.0); MCHC 30.3 g/dL (31.0-37.0); MCV 102.4 fL (80.0-100.0); Macrocytosis Slight; Mean Platelet Volume 13.4; RBC 3.55 m/uL (3.80-5.40); RDW 14.9 % (11.5-15.5); WBC 4.3 k/uL (3.8-10.6)
--- NOTE | 2018-09-25 12:54 | XR ---
EXAMINATION TYPE: XR chest 2V DATE OF EXAM: 09/25/2018 COMPARISON: 11/25/2015 INDICATION: Chest pain TECHNIQUE: Frontal and lateral views of the chest are obtained. FINDINGS: The heart size is mildly prominent. The pulmonary vasculature is normal. The lungs are clear. Pacemaker overlies left chest. IMPRESSION: 1. Mild cardiomegaly. 2. No acute pulmonary process.
[2018-09-25 12:59] LABS: Albumin 3.9 g/dL (3.5-5.0); Calcium 9.7 mg/dL (8.4-10.2); Total Bilirubin 0.6 mg/dL (0.2-1.3); Total Protein 7.3 g/dL (6.3-8.2)
[2018-09-25 13:05] LABS: Magnesium 1.8 mg/dL (1.6-2.3); Potassium 4.6 mmol/L (3.5-5.1)
[2018-09-25 13:08] LABS: INR 1.3 (<1.2); Partial Thromboplastin Time 27.6 sec (22.0-30.0); Prothrombin Time 13.4 sec (9.0-12.0)
[2018-09-25 13:10] LABS: Eosinophils # (M) 0.09 k/uL (0-0.7); Lymphocytes # (M) 0.65 k/uL (1.0-4.8); Monocytes # (M) 0.65 k/uL (0-1.0); Neutrophils # (M) 2.92 k/uL (1.3-7.7); Neutrophils % (M) 68 %; Nucleated Red Blood Cells 0 /100 WBC (0-0); Total Cells Counted 100
[2018-09-25 13:12] LABS: Toxic Vacuolation Present
[2018-09-25 13:13] LABS: Platelet Count 62 k/uL (150-450)
[2018-09-25 13:23] LABS: Creatine Kinase MB 0.5 ng/mL (0.0-2.4); Troponin I 0.014 ng/mL (0.000-0.034)
[2018-09-25] MEDS ORDERED: NITROGLYCERIN SL TABS 0.4 MG TAB SUBLINGUAL PRN (14:07)
--- NOTE | 2018-09-25 17:29 | P.HPIM ---
History of Present Illness This is a pleasant 88 years old female with past medical history of bilateral leg edema, coronary artery disease, atrial fibrillation, status post pacemaker. diabetes mellitus, GERD, GI bleed, hypertension, chronic back pain. Patient presents because of chest pain was 56/10 in severity, and back to 0 after admission. Central cardiac into the throat. Nonspecific inequality about one day duration. Associated with little dyspnea but no nausea vomiting. No sweating. She has chronic bilateral leg swelling. She follow up with Dr. Miramontes has had a metal sander and finisher and Dr. Conti/Michelle as an outpatient setting. On admission her Vitas looks stable. Hemoglobin 11. INR 1.3. Sodium 142. Potassium 4.6. Creatinine 0.8. Troponin 0.014. EKG showing ventricular paced rhythm. Chest x-ray shows mild cardiomegaly with no acute pulmonary process. Patient was started on aspirin and emergency room. Review of Systems CONSTITUTIONAL: No fever, no malaise, no fatigue. HEENT: No recent visual problems or hearing problems. Denied any sore throat. CARDIOVASCULAR: No orthopnea, PND, no palpitations, no syncope. PULMONARY: No shortness of breath, no cough, no hemoptysis. GASTROINTESTINAL: No diarrhea, no nausea, no vomiting, no abdominal pain. Normoactive bowel sounds. NEUROLOGICAL: No headaches, no weakness, no numbness. HEMATOLOGICAL: Denies any bleeding or petechiae. GENITOURINARY: Denies any burning micturition, frequency, or urgency. MUSCULOSKELETAL/RHEUMATOLOGICAL: Denies any joint pain, swelling, or any muscle pain. ENDOCRINE: Denies any polyuria or polydipsia. Past Medical History Past Medical History: Atrial Fibrillation, Coronary Artery Disease (CAD), Cancer , Chest Pain / Angina, CVA/TIA, Diabetes Mellitus, GERD/Reflux, GI Bleed, Hypertension, Myocardial Infarction ([place]), Osteoarthritis ([place]), Pneumonia Additional Past Medical History / Comment(s): 12-18 pt wants flu vaccine while here. other hx:chronic back pain, pt stated has had 3 mi's not sure of dates, murmur, small hiatl hernia per egd.glaucoma R eye, rt eye macular degeneration, R eye poor vision, colitis when younger, chronic thrombocytopenia , chronic myelomonocytic leukemia, iron deficient anemia, DIVERTICULITIS. 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 Last Myocardial Infarction Date:: unk History of Any Multi-Drug Resistant Organisms: None Reported Past Surgical History: Appendectomy, Back Surgery, Cholecystectomy, Heart Catheterization With Stent, Pacemaker Additional Past Surgical History / Comment(s): clark. cataract removal, bilateral knee replacement, heart stents- last in 2002, pacemaker [id number], back surgery for spinal stenosis, hemorroidectomy, colonoscopy-2011 normal.egd, injection lt eye 09-24-18 Past Anesthesia/Blood Transfusion Reactions: No Reported Reaction Additional Past Anesthesia/Blood Transfusion Reaction / Comment(s): Pt states she has received blood in past without reaction. Date of Last Stent Placement:: 2002 Type of Cardiac Device: Permanent Pacemaker Device Placement Date:: 2011 Smoking Status: Never smoker - Past Family History Father Family Medical History: Cancer Additional Family Medical History / Comment(s): at age 80- cardiac Mother Family Medical History: Cancer, Coronary Artery Disease (CAD), Myocardial Infarction ([place]) Additional Family Medical History / Comment(s): age 59 in [facility] Medications and Allergies Home Medications Medication Instructions Recorded Confirmed Type Oxybutynin Chloride [Oxybutynin 10 mg PO DAILY 05/29/15 09/25/18 History Chloride ER] Docusate [Colace] 100 mg PO DAILY #30 capsule 09/02/15 09/25/18 Rx Diltiazem HCl [Cartia Xt] 240 mg PO DAILY 09/19/15 09/25/18 History Glimepiride [Amaryl] 1 mg PO DAILY 10/18/15 09/25/18 History metFORMIN HCL 500 mg PO DAILY 07/22/16 09/25/18 History Rivaroxaban [Xarelto] 15 mg PO DAILY@1700 06/13/18 09/25/18 History Atenolol [Tenormin] 50 mg PO DAILY #0 06/20/18 09/25/18 Rx Omeprazole [PriLOSEC] 40 mg PO RENATE-SALIMAKFSCynthia #30 capsule. 06/20/18 09/25/18 Rx Acetaminophen [Tylenol 8 Hour] 650 mg PO Q4H PRN 06/26/18 09/25/18 History Bisacodyl [Dulcolax] 10 mg RECTAL DAILY PRN 06/26/18 09/25/18 History Dorzolamide HCl/Pf [Dorzolamide 2% 1 drop BOTH EYES BID 06/26/18 09/25/18 History Eye Drop] Ferrous Sulfate [Feosol] 325 mg PO BID@0800,1700 06/26/18 09/25/18 History Furosemide [Lasix] 20 mg PO BID@0800,1700 06/26/18 09/25/18 History Latanoprost [Xalatan 0.005%] 1 drop BOTH EYES DAILY@1200 06/26/18 09/25/18 History Magnesium Hydroxide [Milk of 2,400 mg PO DAILY PRN 06/26/18 09/25/18 History Magnesia] Na Phos,M-B/Na Phos,Di-Ba [Fleet 133 ml RECTAL DAILY PRN 06/26/18 09/25/18 History Adult] Allergies Allergy/AdvReac Type Severity Reaction Status Date / Time Penicillins Allergy Unknown Unknown Verified 09/25/18 12:22 Childhood zolpidem tartrate AdvReac Confusion Verified 09/25/18 12:22 [From Ambien] Physical Exam Vitals: Vital Signs Temp Pulse Pulse Resp BP Pulse Ox 09/25/18 17:00 72 16 136/72 97 09/25/18 14:16 70 18 121/85 95 09/25/18 12:08 62 09/25/18 12:02 98.0 F 63 16 125/67 99 Intake and Output 09/25/18 09/25/18 09/25/18 06:59 14:59 22:59 Other: Weight 77.111 kg GENERAL: The patient is alert and oriented x3, not in any acute distress. Well developed, well nourished. HEENT: Pupils are round and equally reacting to light. EOMI. No scleral icterus. No conjunctival pallor. Normocephalic, atraumatic. No pharyngeal erythema. No thyromegaly. CARDIOVASCULAR: S1 and S2 present. No murmurs, rubs, or gallops. PULMONARY: Chest is clear to auscultation, no wheezing or crackles. ABDOMEN: Soft, nontender, nondistended, normoactive bowel sounds. No palpable organomegaly. MUSCULOSKELETAL: No joint swelling or deformity. EXTREMITIES: No cyanosis, clubbing, or pedal edema. NEUROLOGICAL: Gross neurological examination did not reveal any focal deficits. SKIN: No rashes. Results CBC & Chem 7: 09/25/18 12:28 09/25/18 12:28 Labs: Abnormal Lab Results - Last 24 Hours (Table) 09/25/18 09/25/18 09/25/18 Range/Units 12:28 12: 12: RBC 3.55 L (3.80-5.40) m/uL Hgb 11.0 L (11.4-16.0) gm/dL MCV 102.4 H (80.0-100.0) fL MCHC 30.3 L (31.0-37.0) g/dL Plt Count 62 L (150-450) k/uL Lymphocytes # (Manual) 0.65 L (1.0-4.8) k/uL PT 13.4 H (9.0-12.0) sec INR 1.3 H (<1.2) Chloride 108 H (98-107) mmol/L BUN 27 H (7-17) mg/dL Assessment and Plan Plan: This is a pleasant 88 years old female who presents with chest pain. Continue with serial enzymes. Aspirin. Call cardiology consult. Labs and medication were reviewed.. Continue same treatment. Continue with symptomatic treatment. Resume home medication. Monitor lytes and vitals. DVT and GI prophylaxis. Further recommendations of the clinical course of the patient DVT prophylaxis: heparin GI Prophylaxis: Pepcid Prognosis is guarded
[2018-09-25] MEDS ORDERED: HEPARIN SODIUM,PORCINE 5,000 UNIT/ML 1 ML VIAL SQ SCH (17:30)
[2018-09-25 18:45] LABS: Creatine Kinase 29 U/L (30-135)
[2018-09-25] MEDS: NITROGLYCERIN OINT 1 INCH/GM PACKET TOPICAL SCH ×2 (18:51→23:27)
[2018-09-25 18:59] LABS: Creatine Kinase MB 0.4 ng/mL (0.0-2.4); Troponin I <0.012 ng/mL (0.000-0.034)
[2018-09-25 21:38] LABS: Glucose,Whole Blood 167 mg/dL (75-99)
[2018-09-25] MEDS: FAMOTIDINE 20 MG/2 ML VIAL IV SCH (22:06)
[2018-09-25] MEDS: RIVAROXABAN 15 MG TAB PO SCH (22:06)
[2018-09-26 02:41] LABS: HCT 32.3 % (34.0-46.0); HGB 10.1 gm/dL (11.4-16.0); Hypochromasia Moderate; MCH 32.2 pg (25.0-35.0); MCHC 31.1 g/dL (31.0-37.0); MCV 103.6 fL (80.0-100.0); Macrocytosis Slight; Mean Platelet Volume 12.2; RBC 3.12 m/uL (3.80-5.40); RDW 15.1 % (11.5-15.5); WBC 4.2 k/uL (3.8-10.6)
[2018-09-26 02:55] LABS: Calcium 9.4 mg/dL (8.4-10.2); Creatine Kinase 24 U/L (30-135); Potassium 3.6 mmol/L (3.5-5.1)
[2018-09-26 03:08] LABS: Creatine Kinase MB 0.3 ng/mL (0.0-2.4); Troponin I <0.012 ng/mL (0.000-0.034)
[2018-09-26 03:16] LABS: Band Neutrophils % 7 %; Basophils # (M) 0.04 k/uL (0-0.2); Eosinophils # (M) 0.08 k/uL (0-0.7); Lymphocytes # (M) 0.84 k/uL (1.0-4.8); Monocytes # (M) 0.71 k/uL (0-1.0); Neutrophils % (M) 53 %; Nucleated Red Blood Cells 0 /100 WBC (0-0); Poikilocytosis (M) Present; Total Cells Counted 100
[2018-09-26 03:17] LABS: Large Platelets Present; Platelet Count 52 k/uL (150-450)
[2018-09-26 03:49] LABS: Hemoglobin A1C 5.3 % (4.0-6.0)
[2018-09-26 06:17] LABS: Glucose,Whole Blood 80 mg/dL (75-99)
[2018-09-26] MEDS: INSULIN ASPART 100 UNIT/ML 1 ML 10 ML VIAL SQ SCH ×4 (06:23→20:30)
[2018-09-26] MEDS: NITROGLYCERIN OINT 1 INCH/GM PACKET TOPICAL SCH ×4 (06:30→23:13)
[2018-09-26] MEDS ORDERED: ASPIRIN 325 MG TAB PO SCH (09:00)
[2018-09-26] MEDS ORDERED: POTASSIUM CHLORIDE ER 20 MEQ TAB.ER PO STA (09:28)
[2018-09-26] MEDS ORDERED: BISACODYL 10 MG SUPP RECTAL PRN (09:29)
[2018-09-26] MEDS ORDERED: MAGNESIUM HYDROXIDE 2,400 MG/10 ML CUP PO PRN (09:29)
[2018-09-26] MEDS ORDERED: NA PHOS,M-B/NA PHOS,DI-BA 133 ML ENEMA RECTAL PRN (09:29)
[2018-09-26] MEDS ORDERED: ATENOLOL 50 MG TAB PO SCH (09:30)
[2018-09-26] MEDS: GLIMEPIRIDE 1 MG TAB PO SCH (09:48)
[2018-09-26] MEDS: PANTOPRAZOLE 40 MG TABLET PO SCH (09:49)
[2018-09-26] MEDS: FAMOTIDINE 20 MG/2 ML VIAL IV SCH ×2 (09:49→20:38)
[2018-09-26] MEDS: DORZOLAMIDE HCL 2% DROPS 10 ML BTL BOTH EYES SCH ×2 (09:49→20:39)
[2018-09-26] MEDS: DILTIAZEM CD 240 MG CAP.ER.24H PO SCH (09:49)
[2018-09-26] MEDS: metFORMIN 500 MG TAB PO SCH (09:49)
[2018-09-26] MEDS: DOCUSATE 100 MG CAP PO SCH ×2 (09:49→09:56)
[2018-09-26] MEDS: FUROSEMIDE 20 MG TAB PO SCH ×2 (09:50→17:43)
--- NOTE | 2018-09-26 10:41 | P.PN ---
Subjective This is a pleasant 88 years old female with past medical history of bilateral leg edema, coronary artery disease, atrial fibrillation, status post pacemaker. diabetes mellitus, GERD, GI bleed, hypertension, chronic back pain. Patient presents because of chest pain was 56/10 in severity, and back to 0 after admission. Central cardiac into the throat. Nonspecific inequality about one day duration. Associated with little dyspnea but no nausea vomiting. No sweating. She has chronic bilateral leg swelling. She follow up with Dr. Miramontes has had a staff genetic counselor and Dr. Conti/Michelle as an outpatient setting. On admission her Vitas looks stable. Hemoglobin 11. INR 1.3. Sodium 142. Potassium 4.6. Creatinine 0.8. Troponin 0.014. EKG showing ventricular paced rhythm. Chest x-ray shows mild cardiomegaly with no acute pulmonary process. Patient was started on aspirin and emergency room. 09/26/2018 Patient seen and examined in the select unit. Lying in bed comfortable. She says her chest pain have subsided. No dyspnea. No palpitation or dizziness. No change in urine or bowel habits. But this has been checked no fever, and risks of Vitas looks stable. Labs reviewed and show a WBC of 4.2, hemoglobin 10.1, platelets low at 52. INR is 1.3. Sodium 140. Potassium 3.6. And creatinine at 1.04. Her troponins were negative. And lipid profile within normal limits. Patient has been evaluated by cardiology and the recommendation is still pending. Objective - Vital Signs Vital signs: Vital Signs Temp 97.8 F 09/26/18 08:35 Pulse 82 09/26/18 08:35 Resp 16 09/26/18 08:35 BP 180/87 09/26/18 08:35 Pulse Ox 96 09/26/18 09:11 Intake & Output 09/25/18 09/26/18 09/26/18 18:59 06:59 18:59 Intake Total 322 Balance 322 Weight 77.111 kg 76.2 kg Intake: Oral 322 Other: Voiding Method Diaper Diaper Incontinent Incontinent # Voids 1 - Labs CBC & Chem 7: 09/26/18 02:18 09/26/18 02:18 Labs: Abnormal Lab Results - Last 24 Hours (Table) 09/25/18 09/25/18 09/25/18 Range/Units 12:28 12:28 12:28 RBC 3.55 L (3.80-5.40) m/uL Hgb 11.0 L (11.4-16.0) gm/dL Hct (34.0-46.0) % MCV 102.4 H (80.0-100.0) fL MCHC 30.3 L (31.0-37.0) g/dL Plt Count 62 L (150-450) k/uL Lymphocytes # (Manual) 0.65 L (1.0-4.8) k/uL PT 13.4 H (9.0-12.0) sec INR 1.3 H (<1.2) Chloride 108 H (98-107) mmol/L BUN 27 H (7-17) mg/dL POC Glucose (mg/dL) (75-99) mg/dL Total Creatine Kinase (30-135) U/L 09/25/18 09/25/18 09/26/18 Range/Units 18:05 21:36 02:18 RBC (3.80-5.40) m/uL Hgb (11.4-16.0) gm/dL Hct (34.0-46.0) % MCV (80.0-100.0) fL MCHC (31.0-37.0) g/dL Plt Count (150-450) k/uL Lymphocytes # (Manual) (1.0-4.8) k/uL PT (9.0-12.0) sec INR (<1.2) Chloride (98-107) mmol/L BUN (7-17) mg/dL POC Glucose (mg/dL) 167 H (75-99) mg/dL Total Creatine Kinase 29 L 24 L (30-135) U/L 18 09/26/18 Range/Units 02:18 02:18 RBC 3.12 L (3.80-5.40) m/uL Hgb 10.1 L (11.4-16.0) gm/dL Hct 32.3 L (34.0-46.0) % MCV 103.6 H (80.0-100.0) fL MCHC (31.0-37.0) g/dL Plt Count 52 L (150-450) k/uL Lymphocytes # (Manual) 0.84 L (1.0-4.8) k/uL PT (9.0-12.0) sec INR (<1.2) Chloride (98-107) mmol/L BUN 31 H (7-17) mg/dL POC Glucose (mg/dL) (75-99) mg/dL Total Creatine Kinase (30-135) U/L Assessment and Plan Assessment: Chest pain, rule out cardiac causes History of anemia History of essential hypertension History of coronary artery disease History of chronic atrial fibrillation on xeralto History of TIA Diabetes mellitus, type II History of GERD History of GI bleed History of degenerative joint disease and chronic back pain Plan: This is a pleasant 88 years old female who presents with chest pain. Continue with serial enzymes. Aspirin. Call cardiology consult. Labs and medication were reviewed.. Continue same treatment. Continue with symptomatic treatment. Resume home medication. Monitor lytes and vitals. DVT and GI prophylaxis. Further recommendations of the clinical course of the patient DVT prophylaxis: heparin GI Prophylaxis: Pepcid Prognosis is guarded
[2018-09-26 11:17] LABS: Glucose,Whole Blood 193 mg/dL (75-99)
[2018-09-26] MEDS: OXYBUTYNIN 10 MG TAB.ER.24 PO SCH (11:33)
[2018-09-26] MEDS: LATANOPROST 0.005% OPHTH DROPS 2.5 ML BTL BOTH EYES SCH (11:34)
--- NOTE | 2018-09-26 12:19 | P.CRDCN ---
History of Present Illness Consult date: 09/26/18 Reason for Consult (text): Chest pain History of present illness: And this is an 88-year-old female patient of Dr. Miramontes with cervical history of coronary artery disease status post stenting in the past, chronic atrial fibrillation status post pacemaker, diabetes mellitus type 2, history of CVA, CMML, history of GI bleed in May 2018. Patient states that she was sitting at [facility] where she is a long-term resident and developed chest pain in the middle of her chest and also had sore throat in the back. This started 3 -4 days ago but she didn't tell any of the staff. When she told staff yesterday , they gave her 1 nitroglycerin which seemed to help and then EMS was called and she was brought into [facility] emergency center for evaluation. She was given one more nitroglycerin which she states made the pain go away. She denies having any shortness of breath, sweating, nausea or vomiting. Her troponins have been negative on 3 draws. WBC 4.2, hemoglobin 10.1, platelet count 52. Creatinine 1.04, blood sugars running between 80 and 167. Triglycerides 57, cholesterol 116, LDL 58 and HDL 47. EKG is ventricular paced rhythm. Review of Systems All systems: negative Constitutional: Denies anorexia, Denies chills, Denies fatigue, Denies fever, Denies lethargy, Denies night sweats, Denies poor appetite, Denies weakness, Denies weight loss Eyes: denies blurred vision, denies pain Ears, nose, mouth and throat: Denies dysphagia, Denies headache, Denies mouth pain, Denies sore throat, Denies vertigo Cardiovascular: Reports irregular heart beat, Denies chest pain, Denies decreased exercise tolerance, Denies dyspnea on exertion, Denies edema, Denies leg edema, Denies palpitations, Denies shortness of breath, Denies syncope Respiratory: Denies cough, Denies cough with sputum, Denies dyspnea, Denies excessive sputum, Denies hemoptysis, Denies wheezing Gastrointestinal: Denies abdominal pain, Denies diarrhea, Denies loss of appetite, Denies melena, Denies nausea, Denies vomiting Genitourinary: Denies dysuria, Denies hematuria, Denies urinary frequency Musculoskeletal: Denies myalgias Integumentary: Denies pruritus, Denies rash Neurological: Denies numbness, Denies weakness Psychiatric: Denies anxiety, Denies depression Endocrine: Denies fatigue, Denies weight change Past Medical History Past Medical History: Atrial Fibrillation, Coronary Artery Disease (CAD), Cancer , Chest Pain / Angina, CVA/TIA, Diabetes Mellitus, GERD/Reflux, GI Bleed, Hypertension, Myocardial Infarction ([place]), Osteoarthritis (OA), Pneumonia Additional Past Medical History / Comment(s): 09-25-18 pt wants flu vaccine while here. other hx:chronic back pain, pt stated has had 3 mi's not sure of dates, murmur, small hiatl hernia per egd.glaucoma R eye, rt eye macular degeneration, R eye poor vision, colitis when younger, chronic thrombocytopenia , chronic myelomonocytic leukemia, iron deficient anemia, DIVERTICULITIS. 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 Last Myocardial Infarction Date:: unk History of Any Multi-Drug Resistant Organisms: None Reported Past Surgical History: Appendectomy, Back Surgery, Cholecystectomy, Heart Catheterization With Stent, Pacemaker Additional Past Surgical History / Comment(s): clark. cataract removal, bilateral knee replacement, heart stents- last in 2002, pacemaker [id number], back surgery for spinal stenosis, hemorroidectomy, colonoscopy-2011 normal.egd, injection lt eye 09-24-18 Past Anesthesia/Blood Transfusion Reactions: No Reported Reaction Additional Past Anesthesia/Blood Transfusion Reaction / Comment(s): Pt states she has received blood in past without reaction. Date of Last Stent Placement:: 2002 Type of Cardiac Device: Permanent Pacemaker Device Placement Date:: 2011 Smoking Status: Never smoker - Past Family History Father Family Medical History: Cancer Additional Family Medical History / Comment(s): at age 80- cardiac Mother Family Medical History: Cancer, Coronary Artery Disease (CAD), Myocardial Infarction ([place]) Additional Family Medical History / Comment(s): age 59 in [place] Medications and Allergies Home Medications Medication Instructions Recorded Confirmed Type Oxybutynin Chloride [Oxybutynin 10 mg PO DAILY 05/29/15 09/25/18 History Chloride ER] Docusate [Colace] 100 mg PO DAILY #30 capsule 09/02/15 09/25/18 Rx Diltiazem HCl [Cartia Xt] 240 mg PO DAILY 09/19/15 09/25/18 History Glimepiride [Amaryl] 1 mg PO DAILY 10/18/15 09/25/18 History metFORMIN HCL 500 mg PO DAILY 07/22/16 09/25/18 History Rivaroxaban [Xarelto] 15 mg PO DAILY@1700 06/13/18 09/25/18 History Omeprazole [PriLOSEC] 40 mg PO AC-BRKFST #30 capsule. 06/20/18 09/25/18 Rx Acetaminophen [Tylenol 8 Hour] 650 mg PO Q4H PRN 06/26/18 09/25/18 History Bisacodyl [Dulcolax] 10 mg RECTAL DAILY PRN 06/26/18 09/25/18 History Dorzolamide HCl/Pf [Dorzolamide 2% 1 drop BOTH EYES BID 06/26/18 09/25/18 History Eye Drop] Ferrous Sulfate [Feosol] 325 mg PO BID@0800,1700 06/26/18 09/25/18 History Furosemide [Lasix] 20 mg PO BID@0800,1700 06/26/18 09/25/18 History Latanoprost [Xalatan 0.005%] 1 drop BOTH EYES DAILY@1200 06/26/18 09/25/18 History Magnesium Hydroxide [Milk of 2,400 mg PO DAILY PRN 06/26/18 09/25/18 History Magnesia] Na Phos,M-B/Na Phos,Di-Ba [Fleet 133 ml RECTAL DAILY PRN 06/26/18 09/25/18 History Adult] Atenolol [Tenormin] 50 mg PO BID #0 09/26/18 09/25/18 Rx Allergies Allergy/AdvReac Type Severity Reaction Status Date / Time Penicillins Allergy Unknown Unknown Verified 09/25/18 12:22 Childhood zolpidem tartrate AdvReac Confusion Verified 09/25/18 12:22 [From Jennifer] Physical Exam Vitals: Vital Signs Temp Pulse Pulse Pulse Resp BP BP 09/26/18 11:34 75 16 159/71 09/26/18 09:11 12/08/18 08:35 97.8 F 82 16 180/87 09/26/18 04:00 97.9 F 72 18 132/62 09/26/18 00:00 97.9 F 60 18 140/63 09/25/18 20:00 98.6 F 58 L 18 151/63 09/25/18 17:30 97.3 F L 65 16 137/63 09/25/18 17:00 72 16 136/72 09/25/18 14:16 70 18 121/85 09/25/18 12:08 62 09/25/18 12:02 98.0 F 63 16 125/67 Pulse Ox 09/26/18 11:34 100 09/26/18 09:11 96 09/26/18 08:35 98 09/26/18 04:00 96 09/26/18 00:00 97 09/25/18 20:00 98 09/25/18 17:30 99 09/25/18 17:00 97 09/25/18 14:16 95 09/25/18 12:08 09/25/18 12:02 99 Intake and Output 09/25/18 09/26/18 09/26/18 22:59 06:59 14:59 Intake Total 322 Balance 322 Intake: Oral 322 Other: Voiding Method Diaper Diaper Diaper Incontinent Incontinent Incontinent # Voids 1 Weight 76.2 kg Gen: This is a an 88-year-old female. She is in the recliner appears to be comfortable and in no acute distress. HEENT: Head is atraumatic, normocephalic. Pupils equal, round. Sclerae is anicteric. NECK: Supple. No JVD. No lymphadenopathy. No thyromegaly. LUNGS: Clear to auscultation. No wheezes or rhonchi. No intercostal retractions. HEART: Regular rate and rhythm. Systolic murmur at the apex and base. Pacemaker to the left upper chest wall. Chest wall tenderness to the mid sternal area. ABDOMEN: Soft. Bowel sounds are present. No masses. No tenderness. EXTREMITIES: Trace bilateral pedal edema. No calf tenderness. Dorsalis pedis + 1 bilaterally. NEUROLOGICAL: Patient is awake, alert and oriented x3. Cranial nerves 2 through 12 are grossly intact. Results 09/26/18 02:18 09/26/18 02:18 Cardiac Enzymes 09/25/18 09/25/18 09/25/18 Range/Units 12: 12: 18:05 AST 34 (14-36) U/L CK-MB (CK-2) 0.5 0.4 (0.0-2.4) ng/mL Troponin I 0.014 <0.012 (0.000-0.034) ng/mL 09/26/18 Range/Units 02:18 AST (14-36) U/L CK-MB (CK-2) 0.3 (0.0-2.4) ng/mL Troponin I <0.012 (0.000-0.034) ng/mL Coagulation 09/25/18 Range/Units 12: PT 13.4 H (9.0-12.0) sec APTT 27.6 (22.0-30.0) sec Lipids 09/26/18 Range/Units 02:18 Triglycerides 57 (<150) mg/dL Cholesterol 116 (<200) mg/dL HDL Cholesterol 47 (40-60) mg/dL CBC 09/25/18 09/26/18 Range/Units 12:28 02:18 WBC 4.3 4.2 (3.8-10.6) k/uL RBC 3.55 L 3.12 L (3.80-5.40) m/uL Hgb 11.0 L 10.1 L (11.4-16.0) gm/dL Hct 36.3 32.3 L (34.0-46.0) % Plt Count 62 L 52 L (150-450) k/uL Comprehensive Metabolic Panel 09/25/18 09/26/18 Range/Units 12:28 02:18 Sodium 142 140 (137-145) mmol/L Potassium 4.6 3.6 (3.5-5.1) mmol/L Chloride 108 H 107 (98-107) mmol/L Carbon Dioxide 25 25 (22-30) mmol/L BUN 27 H 31 H (7-17) mg/dL Creatinine 0.88 1.04 (0.52-1.04) mg/dL Glucose 85 99 (74-99) mg/dL Calcium 9.7 9.4 (8.4-10.2) mg/dL AST 34 (14-36) U/L ALT 16 (9-52) U/L Alkaline Phosphatase 100 (38-126) U/L Total Protein 7.3 (6.3-8.2) g/dL Albumin 3.9 (3.5-5.0) g/dL Current Medications Generic Name Dose Route Start Last Admin Trade Name Freq PRN Reason Stop Dose Admin Acetaminophen 650 mg 09/25/18 21:29 Tylenol Tab PO Q4H PRN Pain Aspirin 325 mg 09/26/18 09:00 09/26/18 09:48 Aspirin PO 325 mg DAILY [facility] Administration Atenolol 50 mg 09/26/18 09:30 09/26/18 09:49 Tenormin PO 50 mg DAILY [facility] Administration Bisacodyl 10 mg 09/26/18 09:29 Dulcolax RECTAL DAILY PRN Constipation Diltiazem HCl 240 mg 09/26/18 09:30 09/26/18 09:49 Cardizem Cd PO 240 mg DAILY [facility] Administration Docusate Sodium 100 mg 09/26/18 09:30 09/26/18 09:56 Colace PO Not Given DAILY [facility] Dorzolamide HCl 1 drops 09/26/18 09:00 09/26/18 09:49 Trusopt BOTH EYES 1 drops BID [facility] Administration Famotidine 20 mg 09/25/18 21:00 09/26/18 09:49 Pepcid IV 20 mg Q12HR [facility] Administration Ferrous Sulfate 325 mg 09/26/18 17:00 Feosol PO BID@0800,1700 [facility] Furosemide 20 mg 09/26/18 08:00 09/26/18 09:50 Lasix PO 20 mg BID@0800,1700 [facility] Administration Glimepiride 1 mg 09/26/18 07:30 09/26/18 09:48 Amaryl PO 1 mg AC-BRKFST [facility] Administration Insulin Aspart 0 unit 09/26/18 07:30 09/26/18 06:23 Novolog SQ Not Given ACHS [facility] Protocol Latanoprost 1 drops 09/26/18 12:00 09/26/18 11:34 Xalatan 0.005% BOTH EYES 1 drops DAILY@1200 [facility] Administration Magnesium Hydroxide 2,400 mg 09/26/18 09:29 Milk Of Magnesia PO DAILY PRN Constipation Metformin HCl 500 mg 09/26/18 09:00 09/26/18 09:49 Glucophage PO 500 mg DAILY [facility] Administration Nitroglycerin 1 inch 09/25/18 19:00 09/26/18 11:33 Nitro-Bid Oint TOPICAL 1 inch Q6HR [facility] Administration Nitroglycerin 0.4 mg 09/25/18 14:07 Nitrostat SUBLINGUAL Q5M PRN Chest Pain Oxybutynin Chloride 10 mg 09/26/18 09:30 09/26/18 11:33 Ditropan Xl PO 10 mg DAILY [facility] Administration Pantoprazole Sodium 40 mg 09/26/18 09:30 09/26/18 09:49 Protonix PO 40 mg AC-BRKFST [facility] Administration Rivaroxaban 15 mg 09/25/18 21:36 09/25/18 22:06 Xarelto PO 15 mg DAILY@1700 [facility] Administration Sodium Biphosphate/Sodium Phosphate 133 ml 09/26/18 09:29 Fleet Adult RECTAL DAILY PRN Constipation Intake and Output 09/25/18 09/26/18 09/26/18 22:59 06:59 14:59 Intake Total 322 Balance 322 Intake: Oral 322 Other: Voiding Method Diaper Diaper Diaper Incontinent Incontinent Incontinent # Voids 1 Weight 76.2 kg 09/26/18 02:18 09/26/18 02:18 Assessment and Plan Plan: 1. Chest pain musculoskeletal without acute coronary syndrome. 2. Chronic atrial fibrillation status post pacemaker. 3. Coronary artery disease with previous stent. 4. Hypertension. 5. CMML. 6. History of stroke. 7. Diabetes mellitus type 2. Plan: Atenolol will be increased to 50 mg twice daily and continue Cardizem CD 240 mg daily, Lasix 20 mg twice daily, Xarelto 50 mg daily. Aspirin will be discontinued. Patient is cleared from cardiology for transfer back to [facility]. Respiratory she has been reviewed, I agree with the documented findings and plan of care. Patient has been seen and examined.
--- NOTE | 2018-09-26 14:31 | P.DS ---
Providers Date of admission: 09/25/18 14:07 Attending physician: Clint Pathak MD Consults: 09/25/18 14:07 Consult Physician Urgent Consulting Provider: [facility] Consult Reason/Comments: Unstable angina Do you want consulting provider notified?: Yes Primary care physician: Alfred Conti Hospital Course: Discharge diagnosis Chest pain, mostly musculoskeletal. Cardiology cleared the patient for discharge History of anemia History of essential hypertension History of coronary artery disease History of chronic atrial fibrillation on xeralto History of CMML History of TIA Diabetes mellitus, type II History of GERD History of GI bleed History of degenerative joint disease and chronic back pain Hospitalization course: This is a pleasant 88 years old female who presented because of chest pain. Patient has been evaluated by head animal keeper and cleared the patient for discharge as her chest pain is mostly musculoskeletal in nature. On discharge date patient denies any chest pain and she says that severity is 0/10. No other complaints. No dyspnea. No change in urine or bowel habits. No fever. Patient was cleared by cardiology for discharge. Patient was found stable and can be discharged back to her mom at however she needs follow-up as an outpatient. Please refer to my note from today for further information and physical exam. Plan - Discharge Summary Discharge Rx Participant: No New Discharge Prescriptions: New Atenolol [Tenormin] 50 mg PO BID tab Insulin Aspart [NovoLOG (formulary)] 0 unit SQ ACHS vial Continue Oxybutynin Chloride [Oxybutynin Chloride ER] 10 mg PO DAILY Docusate [Colace] 100 mg PO DAILY #30 capsule Diltiazem HCl [Cartia Xt] 240 mg PO DAILY Glimepiride [Amaryl] 1 mg PO DAILY metFORMIN HCL 500 mg PO DAILY Rivaroxaban [Xarelto] 15 mg PO DAILY@1700 Omeprazole [PriLOSEC] 40 mg PO AC-BRKFST #30 capsule. Acetaminophen [Tylenol 8 Hour] 650 mg PO Q4H PRN PRN Reason: Pain Bisacodyl [Dulcolax] 10 mg RECTAL DAILY PRN PRN Reason: Constipation Dorzolamide HCl/Pf [Dorzolamide 2% Eye Drop] 1 drop BOTH EYES BID Ferrous Sulfate [Iron (65 MG Elemental)] 325 mg PO BID@0800,1700 Furosemide [Lasix] 20 mg PO BID@0800,1700 Latanoprost [Xalatan 0.005%] 1 drop BOTH EYES DAILY@1200 Magnesium Hydroxide [Milk of Magnesia] 2,400 mg PO DAILY PRN PRN Reason: Constipation Na Phos,M-B/Na Phos,Di-Ba [Fleet Adult] 133 ml RECTAL DAILY PRN PRN Reason: Constipation Discontinued Atenolol [Tenormin] 50 mg PO DAILY #0 Discharge Medication List Oxybutynin Chloride [Oxybutynin Chloride ER] 10 mg PO DAILY 05/29/15 [History] Docusate [Colace] 100 mg PO DAILY #30 capsule 09/02/15 [Rx] Diltiazem HCl [Cartia Xt] 240 mg PO DAILY 09/19/15 [History] Glimepiride [Amaryl] 1 mg PO DAILY 10/18/15 [History] metFORMIN HCL 500 mg PO DAILY 07/22/16 [History] Rivaroxaban [Xarelto] 15 mg PO DAILY@1700 06/13/18 [History] Omeprazole [PriLOSEC] 40 mg PO AC-BRKFST #30 capsule.dr 06/20/18 [Rx] Acetaminophen [Tylenol 8 Hour] 650 mg PO Q4H PRN 06/26/18 [History] Bisacodyl [Dulcolax] 10 mg RECTAL DAILY PRN 06/26/18 [History] Dorzolamide HCl/Pf [Dorzolamide 2% Eye Drop] 1 drop BOTH EYES BID 06/26/18 [ History] Ferrous Sulfate [Iron (65 MG Elemental)] 325 mg PO BID@0800,1700 06/26/18 [ History] Furosemide [Lasix] 20 mg PO BID@0800,1700 06/26/18 [History] Latanoprost [Xalatan 0.005%] 1 drop BOTH EYES DAILY@1200 06/26/18 [History] Magnesium Hydroxide [Milk of Magnesia] 2,400 mg PO DAILY PRN 06/26/18 [History] Na Phos,M-B/Na Phos,Di-Ba [Fleet Adult] 133 ml RECTAL DAILY PRN 06/26/18 [ History] Atenolol [Tenormin] 50 mg PO BID tab 09/26/18 [Rx] Insulin Aspart [NovoLOG (formulary)] 0 unit SQ ACHS vial 09/26/18 [Rx] Follow up Appointment(s)/Referral(s): Alfred Conti MD [Primary Care Provider] - 1-2 days Activity/Diet/Wound Care/Special Instructions: cardiac diet activity as tolerated discontinue aspirin if pt was taking it , as per head animal keeper recommendation Discharge Disposition: TRANSFER TO SNF/ECF
[2018-09-26 16:11] LABS: Glucose,Whole Blood 69 mg/dL (75-99)
[2018-09-26 16:35] LABS: Glucose,Whole Blood 89 mg/dL (75-99)
[2018-09-26] MEDS: FERROUS SULFATE 325 MG TAB PO SCH (17:43)
[2018-09-26] MEDS: RIVAROXABAN 15 MG TAB PO SCH (17:43)
[2018-09-26 20:29] LABS: Glucose,Whole Blood 84 mg/dL (75-99)
[2018-09-26] MEDS: ATENOLOL 50 MG TAB PO SCH (20:38)
[2018-09-26] MEDS: ACETAMINOPHEN TAB 325 MG TAB PO PRN (21:19)
[2018-09-27] MEDS: ACETAMINOPHEN TAB 325 MG TAB PO PRN ×2 (03:44→15:07)
[2018-09-27] MEDS: NITROGLYCERIN OINT 1 INCH/GM PACKET TOPICAL SCH ×2 (06:11→11:39)
[2018-09-27] MEDS: INSULIN ASPART 100 UNIT/ML 1 ML 10 ML VIAL SQ SCH ×2 (06:12→11:39)
[2018-09-27 06:28] LABS: Glucose,Whole Blood 105 mg/dL (75-99)
[2018-09-27 06:40] LABS: HCT 33.2 % (34.0-46.0); HGB 10.4 gm/dL (11.4-16.0); Hypochromasia Slight; MCH 31.9 pg (25.0-35.0); MCHC 31.2 g/dL (31.0-37.0); Macrocytosis Slight; RBC 3.26 m/uL (3.80-5.40); RDW 14.9 % (11.5-15.5); WBC 2.8 k/uL (3.8-10.6)
[2018-09-27] MEDS: PANTOPRAZOLE 40 MG TABLET PO SCH (06:42)
[2018-09-27 06:56] LABS: Calcium 9.5 mg/dL (8.4-10.2)
[2018-09-27 07:05] LABS: Platelet Count 53 k/uL (150-450)
[2018-09-27 08:40] VITALS: RESP 16; TEMP 98.3
[2018-09-27] MEDS: ATENOLOL 50 MG TAB PO SCH (08:42)
[2018-09-27] MEDS: GLIMEPIRIDE 1 MG TAB PO SCH (08:42)
[2018-09-27] MEDS: DILTIAZEM CD 240 MG CAP.ER.24H PO SCH (08:42)
[2018-09-27] MEDS: FAMOTIDINE 20 MG/2 ML VIAL IV SCH (08:42)
[2018-09-27] MEDS: OXYBUTYNIN 10 MG TAB.ER.24 PO SCH (08:42)
[2018-09-27] MEDS: metFORMIN 500 MG TAB PO SCH (08:42)
[2018-09-27] MEDS: FUROSEMIDE 20 MG TAB PO SCH (08:42)
[2018-09-27] MEDS: DOCUSATE 100 MG CAP PO SCH ×2 (08:42→08:45)
[2018-09-27] MEDS: FERROUS SULFATE 325 MG TAB PO SCH (08:42)
[2018-09-27] MEDS: DORZOLAMIDE HCL 2% DROPS 10 ML BTL BOTH EYES SCH (08:43)
[2018-09-27 09:06] LABS: Eosinophils # (M) 0.17 k/uL (0-0.7); Lymphocytes # (M) 0.31 k/uL (1.0-4.8); Monocytes # (M) 1.26 k/uL (0-1.0); Neutrophils # (M) 1.06 k/uL (1.3-7.7); Neutrophils % (M) 38 %; Nucleated Red Blood Cells 0 /100 WBC (0-0); Total Cells Counted 100
[2018-09-27 11:33] LABS: Glucose,Whole Blood 78 mg/dL (75-99)
[2018-09-27] MEDS: LATANOPROST 0.005% OPHTH DROPS 2.5 ML BTL BOTH EYES SCH (12:03)
[2018-09-27 12:53] VITALS: BP 177/92; PULSE 62
[2018-09-27 14:13] LABS: T4, Free (Free Thyroxine) 1.16 ng/dL (0.78-2.19)
[2018-09-27 16:32] LABS: Glucose,Whole Blood 122 mg/dL (75-99)
--- NOTE | 2018-09-28 00:10 | P.DS ---
Providers Date of admission: 09/25/18 14:07 Attending physician: Clint Pathak MD Consults: 09/25/18 14:07 Consult Physician Urgent Consulting Provider: [facility] Consult Reason/Comments: Unstable angina Do you want consulting provider notified?: Yes Primary care physician: Alfred Conti Hospital Course: Dx: Chest pain, mostly musculoskeletal. evaluated by cardiology and cleared her for discharge History of anemia History of essential hypertension History of coronary artery disease History of chronic atrial fibrillation on xeralto History of TIA Diabetes mellitus, type II History of GERD History of GI bleed History of degenerative joint disease and chronic back pain Hospital course: This is a pleasant 88 years old female who presented because of chest pain. Patient has been evaluated by monorail car operator and cleared the patient for discharge as her chest pain is mostly musculoskeletal in nature. On discharge date patient denies any chest pain and she says that severity is 0/10. No other complaints. No dyspnea. No change in urine or bowel habits. No fever. Patient was cleared by cardiology for discharge. Patient was found stable and can be discharged back to her mom at however she needs follow-up as an outpatient. Please refer to my note from today for further information and physical exam. pt also noticed to have red left eye with no effect on her vision , pt states she had problem in her left eye about 6 week and that she saw an genomics scientist about 2 days ago , prior to admission , he gave her injection in her left eye but she could not tell which, injection might contributed to her red eye. i spoke with , genomics scientist operations and maintenance specialist and discussed the case with him and he recommended to see her in the outpt and that pt can be discharged today. pt informed and she agrees. written instruction is provided . Thyroid function test were checked with no evidence of hyperthyroidism. pt was cleared by ophthalmology and cardiology for discharge Pt was instructed about the problems and management plan and Pt verbalized understanding and acceptance Pt is found stable and can be discharged to the community but needs follow up as outpt Discharge exam Gen.: Patient alert awake and oriented X 3, NOT IN DISTRESS Head: left eye is red with red conjunctiva, eye movement is normal in all direction, no blurred vision. left eye is mildly protruded. CVS: s1-s2, RRR, no murmur CHEST:bilateral CTA, no wheezing or crepitation Abdomen: Soft, no tenderness, no distention, positive bowel sounds Extremities: No leg edema or induration time spent : more than 35 min Plan - Discharge Summary Discharge Rx Participant: No New Discharge Prescriptions: New Atenolol [Tenormin] 50 mg PO BID tab Insulin Aspart [NovoLOG (formulary)] 0 unit SQ ACHS vial Continue Oxybutynin Chloride [Oxybutynin Chloride ER] 10 mg PO DAILY Docusate [Colace] 100 mg PO DAILY #30 capsule Diltiazem HCl [Cartia Xt] 240 mg PO DAILY Glimepiride [Amaryl] 1 mg PO DAILY metFORMIN HCL 500 mg PO DAILY Rivaroxaban [Xarelto] 15 mg PO DAILY@1700 Omeprazole [PriLOSEC] 40 mg PO AC-BRKFST #30 capsule. Acetaminophen [Tylenol 8 Hour] 650 mg PO Q4H PRN PRN Reason: Pain Bisacodyl [Dulcolax] 10 mg RECTAL DAILY PRN PRN Reason: Constipation Dorzolamide HCl/Pf [Dorzolamide 2% Eye Drop] 1 drop BOTH EYES BID Ferrous Sulfate [Iron (65 MG Elemental)] 325 mg PO BID@0800,1700 Furosemide [Lasix] 20 mg PO BID@0800,1700 Latanoprost [Xalatan 0.005%] 1 drop BOTH EYES DAILY@1200 Magnesium Hydroxide [Milk of Magnesia] 2,400 mg PO DAILY PRN PRN Reason: Constipation Na Phos,M-B/Na Phos,Di-Ba [Fleet Adult] 133 ml RECTAL DAILY PRN PRN Reason: Constipation Discontinued Atenolol [Tenormin] 50 mg PO DAILY #0 Discharge Medication List Oxybutynin Chloride [Oxybutynin Chloride ER] 10 mg PO DAILY 05/29/15 [History] Docusate [Colace] 100 mg PO DAILY #30 capsule 09/02/15 [Rx] Diltiazem HCl [Cartia Xt] 240 mg PO DAILY 09/19/15 [History] Glimepiride [Amaryl] 1 mg PO DAILY 10/18/15 [History] metFORMIN HCL 500 mg PO DAILY 07/22/16 [History] Rivaroxaban [Xarelto] 15 mg PO DAILY@1700 06/13/18 [History] Omeprazole [PriLOSEC] 40 mg PO AC-BRKFST #30 capsule. 06/20/18 [Rx] Acetaminophen [Tylenol 8 Hour] 650 mg PO Q4H PRN 06/26/18 [History] Bisacodyl [Dulcolax] 10 mg RECTAL DAILY PRN 06/26/18 [History] Dorzolamide HCl/Pf [Dorzolamide 2% Eye Drop] 1 drop BOTH EYES BID 06/26/18 [ History] Ferrous Sulfate [Iron (65 MG Elemental)] 325 mg PO BID@0800,1700 06/26/18 [ History] Furosemide [Lasix] 20 mg PO BID@0800,1700 06/26/18 [History] Latanoprost [Xalatan 0.005%] 1 drop BOTH EYES DAILY@1200 06/26/18 [History] Magnesium Hydroxide [Milk of Magnesia] 2,400 mg PO DAILY PRN 06/26/18 [History] Na Phos,M-B/Na Phos,Di-Ba [Fleet Adult] 133 ml RECTAL DAILY PRN 06/26/18 [ History] Atenolol [Tenormin] 50 mg PO BID tab 09/26/18 [Rx] Insulin Aspart [NovoLOG (formulary)] 0 unit SQ ACHS vial 09/26/18 [Rx] Follow up Appointment(s)/Referral(s): Alfred Conti MD [Primary Care Provider] - 1-2 days Alla Li MD [STAFF PHYSICIAN] - 1-2 Days (opthalmologist ) Patient Instructions/Handouts: Angina (DC) Activity/Diet/Wound Care/Special Instructions: cardiac diet activity as tolerated discontinue aspirin if pt was taking it , as per monorail car operator recommendation please call tomorrow to make appointment and follow up with , the genomics scientist, for your left red eye. please call at Discharge Disposition: TRANSFER TO SNF/ECF
== END 2018-09-27 16:47 | DRG 313 ==
LOC: EC 12:00 → 3SCARD 14:07
PROVIDERS: ADMIT Internal Medicine; ATTEND Internal Medicine
DX: R07.89 Other chest pain (principal); I25.110 Atherosclerotic heart disease of native coronary artery with unstable angina pectoris; E11.42 Type 2 diabetes mellitus with diabetic polyneuropathy; Z79.4 Long term (current) use of insulin; G89.29 Other chronic pain; I10 Essential (primary) hypertension; I25.2 Old myocardial infarction; I48.2 Chronic atrial fibrillation; K21.9 Gastro-esophageal reflux disease without esophagitis; Z87.19 Personal history of other diseases of the digestive system; Z79.01 Long term (current) use of anticoagulants; Z79.899 Other long term (current) drug therapy; Z82.49 Family history of ischemic heart disease and other diseases of the circulatory system; Z86.73 Personal history of transient ischemic attack (TIA), and cerebral infarction without residual deficits; Z95.0 Presence of cardiac pacemaker; Z95.5 Presence of coronary angioplasty implant and graft; Z96.653 Presence of artificial knee joint, bilateral; Z98.49 Cataract extraction status, unspecified eye; Z87.440 Personal history of urinary (tract) infections; Z88.1 Allergy status to other antibiotic agents; Z88.0 Allergy status to penicillin; Z91.81 History of falling; Z87.01 Personal history of pneumonia (recurrent); H35.30 Unspecified macular degeneration; H40.9 Unspecified glaucoma; Z23 Encounter for immunization; M54.9 Dorsalgia, unspecified; D50.9 Iron deficiency anemia, unspecified
CPT/HCPCS: 36415; 71046; 80048; 80053; 80061; 82550; 82553; 83036; 83735; 84439; 84443; 84484; 85025; 85610; 85730; 93005; 94760; 99285